=== PATIENT | female | born 1965 | race Caucasian/White ===

== ENCOUNTER → 2017-06-30 14:49 | Outpatient (CLI) | payer OTHER, MEDICAID, SELFPAY ==
[2017-06-30 17:05] LABS: Free T4, Direct Thyroxine 0.97 ng/dL (0.78-2.19)
[2017-06-30 17:19] LABS: Thyroid Stimulating Hormone 5.08 uIU/mL (0.47-4.68)
== END ==
PROVIDERS: Visit Provider Obstetrics & Gynecology
DX: E03.9 Hypothyroidism, unspecified (principal)
CPT/HCPCS: 84439; 84443

== ENCOUNTER → 2017-07-30 17:01 | Outpatient (CLI) | payer OTHER, MEDICAID, SELFPAY ==
[2017-07-30 18:16] LABS: Free T4, Direct Thyroxine 1.52 ng/dL (0.78-2.19)
== END ==
PROVIDERS: Visit Provider Specialist
DX: E03.9 Hypothyroidism, unspecified (principal)
CPT/HCPCS: 36415; 84439; 84443

== ENCOUNTER 2017-09-20 19:48 | Emergency (ER) | payer OTHER, MEDICAID, SELFPAY ==
[2017-09-20 19:56] VITALS: BP 150/80; PULSE 98; RESP 18; TEMP 39.4; O2SAT 94; BMI 49.9
[2017-09-20 20:02] VITALS: TEMP 39.4
[2017-09-20] MEDS: ACETAMINOPHEN 325 MG TABLET 975 MG PO (20:02)
[2017-09-20 23:22] VITALS: BP 106/66; PULSE 75; RESP 18; TEMP 37.2; O2SAT 96
[2017-09-20 23:30] VITALS: TEMP 37.2
--- NOTE | 2017-09-20 23:32 | ED_ITS ---
HPI - Fever General Chief Complaint: Fever Stated Complaint: STATES SHE HAS A FEVER OF 105 Time Seen by Provider: 09/20/17 22:56 Source: patient Mode of arrival: ambulatory Limitations: no limitations History of Present Illness HPI Narrative: Patient is a 52-year-old female who presents with fever which started early this evening. She says that all day she has not been feeling well. She had chills and needed multiple blankets despite the warm weather outside. She has not had for cough abdominal pain nausea vomiting UTI symptoms. She initially had fever when she 1st checked and in the ED however she was treated fever has improved and she is feeling much better, In fact she would like to go home. MD complaint: fever Related Data Home Medications Medication Instructions Recorded Confirmed LEVOTHYROXINE SODIUM (Synthroid) 200 mcg PO DAILY #0 07/12/09 09/20/17 atenolol 50 mg PO Q DAY #0 07/12/09 09/20/17 ibuprofen [Advil Liqui-Gel] 600 mg PO Q6H PRN #0 05/11/17 09/20/17 furosemide 20 mg tablet 40 mg PO DAILY PRN 06/30/17 09/20/17 Allergies Allergy/AdvReac Type Severity Reaction Status Date / Time metoclopramide Allergy Unknown NERVOUS/AG Verified 09/20/17 19:58 ITATION Review of Systems Review of Systems All systems reviewed & are unremarkable except as noted in HPI and below Constitutional Reports as per HPI, Reports body ache(s), Reports chills, Reports daytime sleepiness and Reports fever(s) Eyes Denies change in vision, Denies eye discharge, Denies irritation and Denies loss of vision ENT Ears, Nose, Mouth, and Throat: Denies change in voice, Denies neck pain and Denies sore throat Cardiovascular Denies chest pain, Denies irregular heart rhythm, Denies lightheadedness, Denies palpitations, Denies dyspnea, Denies dyspnea on exertion and Denies orthopnea Respiratory Denies cough, Denies dyspnea, Denies dyspnea on exertion and Denies wheezing Gastrointestinal Gastrointestinal: Denies abdominal pain, Denies change in bowel habits, Denies diarrhea, Denies nausea and Denies vomiting Genitourinary Denies hematuria, Denies flank pain, Denies urinary incontinence and Denies urinary urgency Musculoskeletal Denies neck pain Integumentary/Breasts Denies pruritus, Denies erythema, Denies rash and Denies wounds Neurologic Denies loss of vision Endocrine Denies palpitations Allergic/Immunologic Denies wheezing [facility], [facility] Medical History HTN (hypertension) (Acute) Surgical History History of bilateral salpingo-oophorectomy (BSO) (05/11/17) History of third molar tooth extraction Status post adenoidectomy Status post eye surgery Status post laparoscopic cholecystectomy Status post laparoscopic supracervical hysterectomy (05/11/17) Status post surgery (08/08/13) Social History Smoking Status: Former smoker alcohol intake: current substance use type: does not use Exam Initial Vital Signs Initial Vital Signs: Vital Signs Temperature 103.0 F H 09/20/17 19:56 Pulse Rate 98 H 09/20/17 19:56 Respiratory Rate 18 09/20/17 19:56 Blood Pressure 150/80 H 09/20/17 19:56 Pulse Oximetry 94 09/20/17 19:56 Const General: cooperative and healthy appearing Nutritional Appearance: overweight HENMT Head: normal to inspection and normocephalic Eyes General: appearance normal, both eyes and all related structures Neck Neck: normal visual inspection and full ROM Chest Chest: normal inspection of the chest Resp Effort & Inspection: normal respiratory effort Auscultation: clear to auscultation bilaterally, no rales, no rhonchi and no wheezes Cardio Rate: regular rate Rhythm: regular rhythm Heart Sounds: S1 normal and S2 normal GI Inspection: normal to inspection Palpation: soft, No firm, No guarding and No tender Auscultation: normal bowel sounds General: No CVA tenderness Skin General: no rashes or lesions noted, No jaundice and No petechiae Neuro General: alert, oriented x3, gait normal and no focal motor deficits Speech: speech normal Extrem General: normal to inspection Course Orders Ordered: Discontinued Medications Acetaminophen (Tylenol) 975 mg PO NOW ONE Stop: 09/20/17 20:02 Last Admin: 09/20/17 20:02 Dose: 975 mg Vital Signs - 8 hr 09/20/17 23:22 09/20/17 23:30 Temperature 98.9 F 98.9 F Pulse Rate 75 Respiratory Rate 18 Blood Pressure [Right Arm] 106/66 Pulse Oximetry 96 MDM - Fever Lab Data Attestation: I reviewed the patient's lab results. POC UA- negative MDM Narrative Medical decision making narrative: 11:30 p.m. patient is afebrile she has no symptoms she looks nontoxic she is awake alert sitting up and appears well. We discussed blood work versus conservative method of watching waiting in fever control. At this time fever has been ongoing for only a number of hours, she does not appear septic or toxic. She has no specific complaints I discussed all findings with the patient and daughter. Education has been performed regarding treatment plan, diagnosis, warning signs and symptoms and all concerns have been addressed. Verbally agree with and understood all of the above. Discharge Plan Departure Patient Disposition: Home, Self-Care Clinical Impression: Fever of unknown origin Discharge Date/Time: 09/20/17 23:36 Interventions: ED Discharge Assessment Last Done: 09/20/17 23:36 Instructions: DI for Viral Syndrome, DI for Fever (Symptom) -- Adult Activity Restrictions/Additional Instructions: *You have been diagnosed with Viral syndrome, fever *What to do: at this time no specific signs or symptoms of bacterial infection no antibiotics needed at this time. However more specific symptoms may become present which may require antibiotic - continue fever control with Tylenol and/or ibuprofen as directed *Continue to take medications as directed *Follow up with your primary care provider in 2-3 days *Return to ER if you should have fever persisting for more than 4 days, abdominal pain, headache cough or any new, worsening or concerning symptoms Prescriptions: No Action LEVOTHYROXINE SODIUM (Synthroid) 200 mcg PO DAILY Qty: 0 RF: 0 atenolol 50 MG tablet 50 mg PO Q DAY Qty: 0 RF: 0 ibuprofen [Advil Liqui-Gel] 200 MG capsule 600 mg PO Q6H PRN (Reason: Pain (Scale Score 1-3)) Qty: 0 RF: 0 furosemide [Lasix] 20 mg tablet 40 mg PO DAILY PRN (Reason: swelling) RF: 0 Referrals: Lien Stubbs ARNP [Primary Care Provider] -
== END 2017-09-20 23:36 | disposition home or self-care (01) ==
PROVIDERS: Emergency Provider Emergency Medicine
DX: R50.9 Fever, unspecified (principal)
CPT/HCPCS: 81003; 99282; 99283

== ENCOUNTER → 2017-11-09 09:48 | Outpatient (CLI) | payer OTHER, MEDICAID, SELFPAY ==
[2017-11-09 10:18] LABS: Add Manual Diff / Slide Review NO; Basophils Percent Auto 0.4 % (0-2); Eosinophils Percent Auto 2.4 % (2-4); Hematocrit 40.1 % (36-46); Hemoglobin 13.7 g/dL (12.0-16.0); Lymphocytes Percent Auto 29.9 % (25-40); Mean Corpuscular HGB Conc 34.2 % (30-36); Mean Corpuscular Hemoglobin 29.6 PG (26-34); Mean Corpuscular Volume 86.7 fL (80-100); Monocytes Percent Auto 9.6 % (3-14); Neutrophils Absolute Auto 3100 /uL (3000-5900); Neutrophils Percent Auto 57.7 % (50-75); Platelet Count 201 X10^3/uL (150-400); Red Blood Cell Count 4.63 X10^6/uL (4.0-5.2); Red Cell Distribution Width 14.2 % (11.6-14.8); White Blood Cell Count 5.3 X10^3/uL (4.5-11.0)
[2017-11-09 10:30] LABS: Alanine Aminotransferase 43 IU/L (9-52); Albumin 4.3 g/dL (3.5-5.0); Albumin Globulin Ratio 1.2 (1.0-2.8); Alkaline Phosphatase 90 U/L (38-126); Aspartate Aminotransferase 38 IU/L (14-36); BUN Creatinine Ratio 21.7 (6-22); Bilirubin Total 0.7 mg/dL (0.2-1.3); Blood Urea Nitrogen 13 mg/dL (7-17); Calcium 9.9 mg/dL (8.4-10.2); Carbon Dioxide 31 mmol/L (22-32); Chloride 103 mmol/L (98-107); Cholesterol 252 mg/dL (140-199); Estimated Glomerular Filt Rate > 60.0 mL/min (>60); Globulin 3.7 g/dL (1.7-4.1); Glucose 97 mg/dL (70-100); HDL Cholesterol 51 mg/dL (40-60); HEMOLYSIS < 15 (0-50); LDL Cholesterol Calculated 164 mg/dL (<100); Potassium 4.6 mmol/L (3.4-5.1); Sodium 143 mmol/L (137-145); Triglycerides 186 mg/dL (35-150); Uric Acid 7.3 mg/dL (2.5-6.2)
[2017-11-09 10:37] LABS: HEMOLYSIS < 15 (0-50); Iron 77 ug/dL (37-170)
[2017-11-09 10:47] LABS: Erythrocyte Sedimentation Rate 45 MM/HR (0-20)
[2017-11-09 10:48] LABS: Percent Iron Saturation 22 % (15-50); Total Iron Binding Capacity 343 ug/dL (265-497); Transferrin 296 mg/dL (206-381)
[2017-11-11 18:54] LABS: HLA B27 POSITIVE (Negative)
== END ==
PROVIDERS: PCP Physician Assistant; Visit Provider Physician Assistant
DX: I10 Essential (primary) hypertension (principal); M25.50 Pain in unspecified joint; M45.0 Ankylosing spondylitis of multiple sites in spine; Z86.2 Personal history of diseases of the blood and blood-forming organs and certain disorders involving the immune mechanism; M45.9 Ankylosing spondylitis of unspecified sites in spine
CPT/HCPCS: 36415; 80053; 80061; 83540; 83550; 84550; 85025; 85651; 86812

== ENCOUNTER → 2017-11-18 11:44 | Outpatient (CLI) | payer OTHER, MEDICAID, SELFPAY ==
--- NOTE | 2017-11-18 11:46 | DI.RAD.S_ITS ---
PROCEDURE: XR SACRUM COCCYX MIN 2V INDICATIONS: PAIN, Rheumatology needs updated films TECHNIQUE: 3 views of the sacrum and coccyx acquired. COMPARISON: [facility], CR, XR LUMBAR SPINE 2-3V, 11/18/2017, 11:32. FINDINGS: Bones: No fractures or dislocations. No suspicious bony lesions. Mild degenerative sclerosis can be seen of the sacroiliac joints. Age-appropriate lower lumbar spine degenerative changes are noted. Soft tissues: Visualized bowel gas pattern is normal. No suspicious soft tissue densities. IMPRESSION: Normal-appearing sacrum and coccyx. Dictated by: Demetri Garcia M.D. on 11/18/2017 at 13:11 Approved by: Demetri Garcia M.D. on 11/18/2017 at 13:12
--- NOTE | 2017-11-18 11:46 | DI.RAD.S_ITS ---
PROCEDURE: XR LUMBAR SPINE 2-3V INDICATIONS: Ankylosing spondylitis of unspecified sites in spine TECHNIQUE: 3 views of the lumbar spine were acquired. COMPARISON: [facility], CR, XR SACRUM COCCYX MIN 2V, 11/18/2017, 11:32. None. FINDINGS: Bones: 5 nonrib-bearing, lumbar type vertebral bodies are seen. Mild central compression deformities are seen involving the superior endplates of L1 and L2. No acute features are detected. Mild levoconvex scoliotic curvature is noted. There is minimal anterolisthesis at the L3-L4 level. Moderate disc space narrowing is seen at T12-L1. Mild disc space narrowing is seen at L5-S1 and Versed bridging endplate osteophytes are seen on the left at the L3-L4 level. Lower lumbar spine facet arthropathy is seen. Age-appropriate lower thoracic spine degenerative changes are seen. Soft tissues: Overlying bowel gas pattern is normal. No suspicious soft tissue calcifications. Cholecystectomy clips are seen. IMPRESSION: Levoconvex scoliotic curvature and associated degenerative changes. Superior endplate compression deformities are seen at L1 and L2, without acute features. Dictated by: Demetri Garcia M.D. on 11/18/2017 at 13:09 Approved by: Demetri Garcia M.D. on 11/18/2017 at 13:11
== END ==
PROVIDERS: PCP Physician Assistant; Visit Provider Physician Assistant
DX: M47.816 Spondylosis without myelopathy or radiculopathy, lumbar region (principal); M48.061 Spinal stenosis, lumbar region without neurogenic claudication; M45.9 Ankylosing spondylitis of unspecified sites in spine; M41.9 Scoliosis, unspecified; M48.07 Spinal stenosis, lumbosacral region; Z90.49 Acquired absence of other specified parts of digestive tract
CPT/HCPCS: 72100; 72220

== ENCOUNTER → 2018-03-16 15:38 | Outpatient (CLI) | payer OTHER, MEDICAID, SELFPAY ==
--- NOTE | 2018-03-16 15:41 | DI.RAD.S_ITS ---
PROCEDURE: XR CLAVICLE RT INDICATIONS: Swelling RS Clavicular border; HLA B27 (+) TECHNIQUE: 2 views of the clavicle were acquired. COMPARISON: None. FINDINGS: Bones: No fractures or dislocations. No suspicious bony lesions. Soft tissues: No suspicious soft tissue calcifications. IMPRESSION: No trauma found. Moderate osteoarthritis at the a.c. joint. Dictated by: Yves Alfonso M.D. on 03/16/2018 at 16:31 Approved by: Yves Alfonso M.D. on 03/16/2018 at 16:32
--- NOTE | 2018-03-16 15:41 | DI.RAD.S_ITS ---
PROCEDURE: XR KNEE RT 3V INDICATIONS: Bilateral knee pain;positive HLA B27 TECHNIQUE: 3 views of the knee were acquired. COMPARISON: None. FINDINGS: Bones: No fractures or dislocations but there is severe degenerative osteoarthritis at the lateral facet of the patellofemoral joint where [id number] articulation is present. Moderately severe medial compartment and mild to moderate lateral compartment degenerative osteoarthritis also is present seen on the frontal weight bearing view.. No suspicious bony lesions. Soft tissues: No joint effusion. No suspicious soft tissue calcifications. IMPRESSION: Overall there is moderately severe to severe degenerative knee joint osteoarthritis most pronounced at the lateral facet of the patellofemoral joint. Dictated by: Yves Alfonso M.D. on 03/16/2018 at 16:32 Approved by: Yves Alfonso M.D. on 03/16/2018 at 16:33
--- NOTE | 2018-03-16 15:41 | DI.RAD.S_ITS ---
PROCEDURE: XR KNEE LT 3V INDICATIONS: Bilateral knee pain;positive HLA B27 TECHNIQUE: 3 views of the knee were acquired. COMPARISON: [facility], CR, XR KNEE RT 3V, 03/16/2018, 15:42. FINDINGS: Bones: No fractures or dislocations but there is a moderately severe degree of degenerative knee joint osteoarthritis most pronounced at the lateral facet of the patellofemoral joint also present to a similar degree at the medial compartment on the frontal weight bearing view.. No suspicious bony lesions. Soft tissues: No joint effusion. No suspicious soft tissue calcifications. IMPRESSION: Knee joint osteoarthritis is moderately severe overall but slightly less than on the right from plain film imaging earlier today. Degenerative changes are most pronounced at the lateral facet of the patellofemoral joint, and also at the medial compartment. No effusion or loose body found. Dictated by: Yves Alfonso M.D. on 03/16/2018 at 16:33 Approved by: Yves Alfonso M.D. on 03/16/2018 at 16:34
== END ==
PROVIDERS: PCP Physician Assistant; Visit Provider Physician Assistant
DX: M25.561 Pain in right knee (principal); M25.562 Pain in left knee; M19.011 Primary osteoarthritis, right shoulder; M17.0 Bilateral primary osteoarthritis of knee; M25.411 Effusion, right shoulder; Z15.89 Genetic susceptibility to other disease
CPT/HCPCS: 73000; 73562

== ENCOUNTER → 2018-03-19 11:36 | Outpatient (CLI) | payer OTHER, MEDICAID, SELFPAY ==
--- NOTE | 2018-03-19 11:40 | DI.RAD.S_ITS ---
PROCEDURE: XR CHEST 2V INDICATIONS: Deformity (possible bone) Upper right chest wall lower neck TECHNIQUE: 2 views of the chest were acquired. COMPARISON: None. FINDINGS: Surgical changes and devices: None. Lungs and pleura: No pleural effusions or pneumothorax. Lungs are clear. Mediastinum: Mediastinal contours are normal. Heart size is normal. Bones and chest wall: No suspicious bony abnormalities. Soft tissues appear unremarkable. Multilevel thoracolumbar degenerative changes. IMPRESSION: No acute pulmonary process. No visualized bony abnormality. If concern persists, CT is recommended. Dictated by: Martha Sarah M.D. on 03/19/2018 at 12:04 Approved by: Martha Sarah M.D. on 03/19/2018 at 12:06
== END ==
PROVIDERS: PCP Physician Assistant; Visit Provider Physician Assistant
DX: M95.4 Acquired deformity of chest and rib (principal); M95.3 Acquired deformity of neck
CPT/HCPCS: 71046

== ENCOUNTER → 2018-05-13 11:37 | Outpatient (CLI) | payer OTHER, MEDICAID, SELFPAY ==
--- NOTE | 2018-05-13 | DI.MRI.S_ITS ---
PROCEDURE: MR LUMBAR SPINE WO/W CON INDICATIONS: Arthropathy, unspecified TECHNIQUE: Noncontrast sagittal T1 spin echo and T2 fast spin echo, sagittal STIR, axial T1 and T2 fast spin echo through the lumbar spine. In cases with scoliosis, additional coronal T2 fast spin echo may be performed. After the administration of contrast, sagittal and axial T1 spin echo with fat saturation through the lumbar spine. COMPARISON: None. FINDINGS: Image quality: Excellent. Alignment and curvature: There is mild L3-L4 degenerative anterolisthesis. Bones: Marrow is of normal overall signal. Loss of height noted in the L1 vertebral body compatible with compression fracture.Renal vertebral body is normal indicating depression fracture is chronic. L1 compression fracture results in approximately 20% loss of normal vertebral body height. No kyphosis or retropulsed fragments associated with the L1 compression deformity. No acute vertebral body compression fractures. No suspicious marrow enhancement. Spinal cord: Conus medullaris terminates at the T12-L1 is level. Visualized spinal cord demonstrates normal signal, without suspicious enhancement. Paraspinous soft tissues: No paravertebral masses or abnormal enhancement. L1-L2: Slight loss of the signal. Minimal, diffuse disc bulge. Mild bilateral facet hypertrophy and No central stenosis. No neural foraminal narrowing. No neural impingement. L2-L3: Loss of the signal. Minimal, diffuse disc bulge. Mild bilateral facet hypertrophy. No central stenosis. No neural foraminal narrowing. No neural impingement. L3-L4: Loss of the signal. Minimal, diffuse disc bulge. Moderate to severe bilateral facet hypertrophy. Mild ligamentum flavum hypertrophy. Mild to moderate narrowing of the central canal. Mild to moderate bilateral neural foraminal narrowing. No neural impingement. L4-L5: Loss of disc signal. Minimal, diffuse disc bulge. Mild to moderate bilateral facet hypertrophy. Mild narrowing of the central canal. Mild to moderate bilateral neural foraminal narrowing. No neural impingement. L5-S1: Disc has a normal appearance. [id number] bilateral facet hypertrophy. No central stenosis. Mild left neural foraminal narrowing. No neural impingement. IMPRESSION: 1. Grade I L3-L4 degenerative spondylolisthesis. 2. Multilevel degenerative disease 3. Multilevel facet arthropathy. 4. Mild to moderate L3-L4 central canal narrowing. Mild L4-L5 central canal narrowing. 5. Mild to moderate bilateral L3-L4 and L4-L5 neural foraminal narrowing. Mild left L5-S1 neural foraminal narrowing. 6. No neural impingement. Dictated by: Dania Rico MD, PhD on 05/13/2018 at 16:38 Approved by: Dania Rico MD, PhD on 05/13/2018 at 16:41
== END ==
PROVIDERS: PCP Physician Assistant; Referring Provider Orthopaedic Surgery; Visit Provider Specialist/Technologist Athletic Trainer
DX: M47.816 Spondylosis without myelopathy or radiculopathy, lumbar region (principal); M47.817 Spondylosis without myelopathy or radiculopathy, lumbosacral region; M51.36 Other intervertebral disc degeneration, lumbar region; M48.061 Spinal stenosis, lumbar region without neurogenic claudication; M48.07 Spinal stenosis, lumbosacral region; M43.16 Spondylolisthesis, lumbar region
CPT/HCPCS: 72158; A9579

== ENCOUNTER 2018-06-09 14:19 | Emergency (ER) | payer OTHER, MEDICAID, SELFPAY ==
[2018-06-09] VITALS (8 sets, daily range): BP systolic 111–146; BP diastolic 61–72; PULSE 90–102; RESP 15–19; TEMP 36.7–39.9; O2SAT 94–99; BMI 50.5
[2018-06-09] MEDS: ACETAMINOPHEN 325 MG TABLET 650 MG PO (14:56)
[2018-06-09 15:22] LABS: Influenza A and B by PCR Rapid Negative (Negative)
--- NOTE | 2018-06-09 15:34 | DI.US.S_ITS ---
PROCEDURE: US EXTREMITY NONVASC LOWER RT INDICATIONS: swollen, painful leg TECHNIQUE: Real-time scanning was performed of the right lower extremity veins, with image documentation. COMPARISON: None. FINDINGS: Grayscale and Doppler examination of the right common femoral vein, greater saphenous vein, superficial femoral vein, popliteal vein, posterior tibial vein and peroneal vein shows no intraluminal filling defect. Normal compressibility is noted. Normal respiratory variation and augmentation is also seen. Multiple mildly enlarged lymph nodes are noted in right inguinal region measures up to 3.3 x 1.7 x 2.5 cm in size. IMPRESSION: 1. No evidence of DVT in the visualized right lower extremity veins. 2. Prominent lymph nodes in right inguinal region suggestive of reactive inflammatory lymph nodes. Dictated by: Diaz Burris M.D. on 06/09/2018 at 16:21 Approved by: Diaz Burris M.D. on 06/09/2018 at 16:23
--- NOTE | 2018-06-09 16:13 | ED_ITS ---
HPI - Extremity Problem <MAR Shah - Last Filed: 06/09/18 19:34> General Chief complaint: Extremity Problem,Nontraumatic Stated complaint: lethargic, swelling in right legs, states shingles Time Seen by Provider: 06/09/18 15:12 Source: patient Mode of arrival: ambulatory Limitations: no limitations History of Present Illness HPI Narrative: Patient is a 53-year-old female former smoker with history of shingles who presents with a chief complaint of ?I think I have shingles again. She states that she has fevers aches and pains, which is what happened prior to her last shingles. She is feeling tingling in her leg similar to her last shingles. From the walk-in clinic, was concerned she might have a DVT given swelling and pain in her right lower leg. She has not taken anything at home to feel better. She denies any chest pain or shortness of breath. Denies any nausea vomiting or diarrhea. Denies any rashes. Related Data Home Medications Medication Instructions Recorded Confirmed atenolol 50 mg PO DAILY #0 07/12/09 06/10/18 furosemide 40 mg PO DAILY 06/09/18 06/10/18 levothyroxine 200 mcg PO DAILY 06/09/18 06/10/18 ibuprofen 200 mg tablet 200 mg PO QID PRN 06/10/18 Previous Rx's Medication Instructions Recorded allopurinol 300 mg tablet 300 mg PO DAILY #30 tab 05/17/18 cephalexin 500 mg PO QID #40 cap 06/09/18 doxycycline monohydrate 100 mg 100 mg PO BID #20 tab 06/11/18 tablet Allergies Allergy/AdvReac Type Severity Reaction Status Date / Time metoclopramide AdvReac Severe Verified 06/10/18 15:15 NERVOUS/AGITATION AND SUICIDAL THOUGHTS Review of Systems <MAR Shah - Last Filed: 06/09/18 19:34> Review of Systems GENERAL: Denies chills, fatigue, malaise, fever, sweats. HEENT: Denies sinus pain, ear pain, sore throat, difficulty swallowing, dizziness. RESPIRATORY: Denies dyspnea, cough, wheezing, hemoptysis, sputum. CARDIOVASCULAR: Denies chest pain, palpitations, orthopnea, edema, GASTROINTESTINAL: Denies nausea, vomiting, abdominal pain, diarrhea, constipati on, melena. : Denies dysuria, frequency, incontinence, hematuria, urinary retention. MUSCULOSKELETAL: See HPI SKIN: See HPI NEUROLOGIC: Denies weakness, headache, numbness, change in speech, confusion, seizures, incoordination. PSYCHIATRIC: No concerning psychosocial issues. 12 point review of systems is negative except for those stated above PFSH <EARL Shah - Last Filed: 06/09/18 19:34> Medical History HTN (hypertension) (Chronic) Hypothyroidism (Chronic) Polycystic ovary syndrome (Resolved) Surgical History History of bilateral salpingo-oophorectomy (BSO) (05/11/17) History of third molar tooth extraction Status post adenoidectomy Status post eye surgery Status post laparoscopic cholecystectomy Status post laparoscopic supracervical hysterectomy (05/11/17) Status post surgery (08/08/13) Family History (Updated 10/22/17 @ 11:20 by Patricia Jones LPN) Family/Other Adopted Social History Smoking Status: Former smoker Tobacco: How many years used: 4 second hand exposure: No alcohol intake: current substance use type: does not use Family History (Updated 10/22/17 @ 11:20 by Patricia Jones LPN) Family/Other Adopted Social History Smoking Status: Former smoker Tobacco: How many years used: 4 second hand exposure: No alcohol intake: current substance use type: does not use Exam <EARL Shah - Last Filed: 06/09/18 19:34> Narrative Exam Narrative: GENERAL: This is a obese patient, sleeping but easily arousable HEAD: Atraumatic. Normocephalic. No temporal or scalp tenderness. EYES: Pupils equal round and reactive. Extraocular motions intact. No scleral icterus. No injection or drainage. ENT: Nose without bleeding, purulent drainage or septal hematoma. Throat without erythema, tonsillar hypertrophy or exudate. Uvula midline. Airway patent. NECK: Trachea midline. No JVD or lymphadenopathy. Supple, nontender, no menin geal signs. CARDIOVASCULAR: Regular rate and rhythm without murmurs, gallops, or rubs. RESPIRATORY: Clear to auscultation. Breath sounds equal bilaterally. No wheezes, rales, or rhonchi. No cough. No increased respiratory effort. GASTROINTESTINAL: Abdomen obese, non-tender, nondistended. No hepato- splenomegaly, or palpable masses. No guarding. EXTREMITIES: Positive pedal pulses. 2+ edema bilateral lower extremities. cap refill less than 2 seconds all nails both feet. BACK: Nontender without deformity or crepitance. No flank tenderness. NEURO: AOx3. SKIN: 8 x 6 cm erythema noted right lower leg. Warm to palpation. Initial Vital Signs Initial Vital Signs: Vital Signs Temperature 103.8 F H 06/09/18 14:25 Pulse Rate 102 H 06/09/18 14:25 Respiratory Rate 06/09/18 14:25 Pulse Oximetry 97 06/09/18 14:25 <Jair Arguello DO - Last Filed: 06/12/18 18:27> Initial Vital Signs Initial Vital Signs: Vital Signs Temperature 103.8 F H 06/09/18 14:25 Pulse Rate 102 H 06/09/18 14:25 Respiratory Rate 06/09/18 14:25 Pulse Oximetry 97 06/09/18 14:25 Course <TOMAS Shah-BC - Last Filed: 06/09/18 19:34> Orders Ordered: Discontinued Medications Acetaminophen (Tylenol) 650 mg PO NOW ONE Stop: 06/09/18 14:55 Last Admin: 06/09/18 14:56 Dose: 650 mg Sodium Chloride (Normal Saline 0.9%) 1,000 mls @ 1,000 mls/hr IV BOLUS ONE Stop: 06/09/18 18:10 Last Infusion: 06/09/18 18:41 Dose: 0 mls/hr Admin: 06/09/18 17:19 Dose: 1,000 mls/hr Ceftriaxone Sodium/Dextrose (Rocephin) 2 gm in 50 mls @ 100 mls/hr IV NOW ONE Stop: 06/09/18 17:48 Last Infusion: 06/09/18 18:07 Dose: 0 mls/hr Admin: 06/09/18 17:26 Dose: 100 mls/hr Ibuprofen (Advil) 800 mg PO NOW ONE Stop: 06/09/18 14:55 Last Admin: 06/09/18 16:25 Dose: Not Given Potassium Chloride (Potassium Chloride) 40 meq PO NOW ONE Stop: 06/09/18 17:12 Last Admin: 06/09/18 17:19 Dose: 40 meq Vital Signs - 8 hr 06/09/18 14:25 06/09/18 14:56 06/09/18 15:13 Temperature 103.8 F H 103.8 F H Pulse Rate 102 H Respiratory Rate 19 Blood Pressure Blood Pressure [Right Arm] 146/65 H Pulse Oximetry 97 06/09/18 16:00 06/09/18 16:26 06/09/18 16:27 Temperature 98.1 F 98.1 F Pulse Rate 90 Respiratory Rate 15 Blood Pressure Blood Pressure [Right Arm] 111/71 Pulse Oximetry 94 06/09/18 17:42 06/09/18 18:41 Temperature 98.5 F Pulse Rate 95 H 90 Respiratory Rate 18 17 Blood Pressure 131/72 Blood Pressure [Right Arm] 111/61 Pulse Oximetry 95 99 <Jair Arguello DO - Last Filed: 06/12/18 18:27> Orders Ordered: Discontinued Medications Acetaminophen (Tylenol) 650 mg PO NOW ONE Stop: 06/09/18 14:55 Last Admin: 06/09/18 14:56 Dose: 650 mg Sodium Chloride (Normal Saline 0.9%) 1,000 mls @ 1,000 mls/hr IV BOLUS ONE Stop: 06/09/18 18:10 Last Infusion: 06/09/18 18:41 Dose: 0 mls/hr Admin: 06/09/18 17:19 Dose: 1,000 mls/hr Ceftriaxone Sodium/Dextrose (Rocephin) 2 gm in 50 mls @ 100 mls/hr IV NOW ONE Stop: 06/09/18 17:48 Last Infusion: 06/09/18 18:07 Dose: 0 mls/hr Admin: 06/09/18 17:26 Dose: 100 mls/hr Ibuprofen (Advil) 800 mg PO NOW ONE Stop: 06/09/18 14:55 Last Admin: 06/09/18 16:25 Dose: Not Given Potassium Chloride (Potassium Chloride) 40 meq PO NOW ONE Stop: 06/09/18 17:12 Last Admin: 06/09/18 17:19 Dose: 40 meq Vital Signs - 8 hr 06/09/18 14:25 06/09/18 14:56 06/09/18 15:13 Temperature 103.8 F H 103.8 F H Pulse Rate 102 H Respiratory Rate 19 Blood Pressure Blood Pressure [Right Arm] 146/65 H Pulse Oximetry 97 06/09/18 16:00 06/09/18 16:26 06/09/18 16:27 Temperature 98.1 F 98.1 F Pulse Rate 90 Respiratory Rate 15 Blood Pressure Blood Pressure [Right Arm] 111/71 Pulse Oximetry 94 06/09/18 17:42 06/09/18 18:41 Temperature 98.5 F Pulse Rate 95 H 90 Respiratory Rate 18 17 Blood Pressure 131/72 Blood Pressure [Right Arm] 111/61 Pulse Oximetry 95 99 MDM - Extremity (Nontraumatic) <MARNIE ShahP-BC - Last Filed: 06/09/18 19:34> Lab Data Result diagrams: 06/09/18 16:18 06/09/18 16:18 Lab Results 06/09/18 06/09/18 06/09/18 Range/Units 14:48 16:18 16:18 WBC 16.4 H (4.5-11.0) X10^3/uL RBC 4.62 (4.0-5.2) X10^6/uL Hgb 13.5 (12.0-16.0) g/dL Hct 39.5 (36-46) % MCV 85.6 (80-100) fL MCH 29.2 (26-34) PG MCHC 34.1 (30-36) % RDW 15.1 H (11.6-14.8) % Plt Count 154 (150-400) X10^3/uL Neut % (Auto) 92.0 H (50-75) % Lymph % (Auto) 4.9 L (25-40) % [place] % (Auto) 2.7 L (3-14) % Eos % (Auto) 0.2 L (2-4) % Baso % (Auto) 0.2 (0-2) % Neut # (Auto) 56998 H (7064-4257) /uL Lymph # (Auto) 800 L (2869-1287) /uL [place] # (Auto) 400 (0-900) /uL Eos # (Auto) 0 (0-450) /uL Baso # (Auto) 0 (0-100) /uL Sodium 134 L (137-145) mmol/L Potassium 3.3 L (3.4-5.1) mmol/L Chloride 97 L (98-107) mmol/L Carbon Dioxide 29 (22-32) mmol/L BUN 18 H (7-17) mg/dL Creatinine 0.70 (0.52-1.04) mg/dL Estimated GFR > 60.0 (>60) mL/min BUN/Creatinine Ratio 25.7 H (6-22) Glucose 126 H (70-100) mg/dL Lactate (0.7-2.1) mmol/L Calcium 9.4 (8.4-10.2) mg/dL Total Bilirubin 0.7 (0.2-1.3) mg/dL AST 32 (14-36) IU/L ALT 23 (9-52) IU/L Alkaline Phosphatase 69 (38-126) U/L B-Natriuretic Peptide (<100) Total Protein 7.8 (6.3-8.2) g/dL Albumin 4.0 (3.5-5.0) g/dL Globulin 3.8 (1.7-4.1) g/dL Albumin/Globulin Ratio 1.1 (1.0-2.8) Influenza A & B (PCR) Negative (Negative) 06/09/18 06/09/18 Range/Units 16:18 16:41 WBC (4.5-11.0) X10^3/uL RBC (4.0-5.2) X10^6/uL Hgb (12.0-16.0) g/dL Hct (36-46) % MCV (80-100) fL MCH (26-34) PG MCHC (30-36) % RDW (11.6-14.8) % Plt Count (150-400) X10^3/uL Neut % (Auto) (50-75) % Lymph % (Auto) (25-40) % [place] % (Auto) (3-14) % Eos % (Auto) (2-4) % Baso % (Auto) (0-2) % Neut # (Auto) (1199-8183) /uL Lymph # (Auto) (1916-7757) /uL [place] # (Auto) (0-900) /uL Eos # (Auto) (0-450) /uL Baso # (Auto) (0-100) /uL Sodium (137-145) mmol/L Potassium (3.4-5.1) mmol/L Chloride (98-107) mmol/L Carbon Dioxide (22-32) mmol/L BUN (7-17) mg/dL Creatinine (0.52-1.04) mg/dL Estimated GFR (>60) mL/min BUN/Creatinine Ratio (6-22) Glucose (70-100) mg/dL Lactate 1.3 (0.7-2.1) mmol/L Calcium (8.4-10.2) mg/dL Total Bilirubin (0.2-1.3) mg/dL AST (14-36) IU/L ALT (9-52) IU/L Alkaline Phosphatase (38-126) U/L B-Natriuretic Peptide < 100 (<100) Total Protein (6.3-8.2) g/dL Albumin (3.5-5.0) g/dL Globulin (1.7-4.1) g/dL Albumin/Globulin Ratio (1.0-2.8) Influenza A & B (PCR) (Negative) Imaging Data Venous US: Radiologist's impression: Mirela Alvarez 53 F 1965 [place] [address] Ultrasound Report Signed Patient: Mirela Alvarez [facility]#: [id number] : 1965Acct:[id number] Age/Sex: 53 / FDate of Service: 06/09/18 Loc: ED Accession Number: [id number] Procedure: US extremity nonvasc lower rt Ordering Provider: Racquel Toth- PROCEDURE: US EXTREMITY NONVASC LOWER RT INDICATIONS: swollen, painful leg TECHNIQUE: Real-time scanning was performed of the right lower extremity veins, with image documentation. COMPARISON: None. FINDINGS: Grayscale and Doppler examination of the right common femoral vein, greater saphenous vein, superficial femoral vein, popliteal vein, posterior tibial vein and peroneal vein shows no intraluminal filling defect. Normal compressibility is noted. Normal respiratory variation and augmentation is also seen. Multiple mildly enlarged lymph nodes are noted in right inguinal region measures up to 3.3 x 1.7 x 2.5 cm in size. IMPRESSION: 1. No evidence of DVT in the visualized right lower extremity veins. 2. Prominent lymph nodes in right inguinal region suggestive of reactive inflammatory lymph nodes. Dictated by: Diaz Burris M.D. on 06/09/2018 at 16:21 Approved by: Diaz Burris M.D. on 06/09/2018 at 16:23 [facility] Narrative Medical decision making narrative: The patient is a 53-year-old female who presents with chief complaint of shingles versus DVT from the walk-in clinic. She had a normal ultrasound. She has an elevated white blood cell count. Her exam and workup is more consistent with cellulitis at this point time. She was febrile when she arrived, but dropped her temperature after single dose of Tylenol. Her potassium was slightly low, so she was replaced. She is also given a L of IV fluid. Her BNP was normal. she received 1 dose of IV antibiotics as well as a prescription for Keflex. I discussed following up with primary care provider for re-evaluation in a few days. Discussed return precautions of feeling sicker, spreading redness, as well as vomiting. patient had no questions or concerns upon discharge. <Jair Arguello, DO - Last Filed: 06/12/18 18:27> Lab Data Lab Results 06/09/18 06/09/18 06/09/18 Range/Units 14:48 16:18 16:18 WBC 16.4 H (4.5-11.0) X10^3/uL RBC 4.62 (4.0-5.2) X10^6/uL Hgb 13.5 (12.0-16.0) g/dL Hct 39.5 (36-46) % MCV 85.6 (80-100) fL MCH 29.2 (26-34) PG MCHC 34.1 (30-36) % RDW 15.1 H (11.6-14.8) % Plt Count 154 (150-400) X10^3/uL Neut % (Auto) 92.0 H (50-75) % Lymph % (Auto) 4.9 L (25-40) % [place] % (Auto) 2.7 L (3-14) % Eos % (Auto) 0.2 L (2-4) % Baso % (Auto) 0.2 (0-2) % Neut # (Auto) 84784 H (0975-3422) /uL Lymph # (Auto) 800 L (9086-6409) /uL [place] # (Auto) 400 (0-900) /uL Eos # (Auto) 0 (0-450) /uL Baso # (Auto) 0 (0-100) /uL Sodium 134 L (137-145) mmol/L Potassium 3.3 L (3.4-5.1) mmol/L Chloride 97 L (98-107) mmol/L Carbon Dioxide 29 (22-32) mmol/L BUN 18 H (7-17) mg/dL Creatinine 0.70 (0.52-1.04) mg/dL Estimated GFR > 60.0 (>60) mL/min BUN/Creatinine Ratio 25.7 H (6-22) Glucose 126 H (70-100) mg/dL Lactate (0.7-2.1) mmol/L Calcium 9.4 (8.4-10.2) mg/dL Total Bilirubin 0.7 (0.2-1.3) mg/dL AST 32 (14-36) IU/L ALT 23 (9-52) IU/L Alkaline Phosphatase 69 (38-126) U/L B-Natriuretic Peptide (<100) Total Protein 7.8 (6.3-8.2) g/dL Albumin 4.0 (3.5-5.0) g/dL Globulin 3.8 (1.7-4.1) g/dL Albumin/Globulin Ratio 1.1 (1.0-2.8) Influenza A & B (PCR) Negative (Negative) 06/09/18 06/09/18 Range/Units 16:18 16:41 WBC (4.5-11.0) X10^3/uL RBC (4.0-5.2) X10^6/uL Hgb (12.0-16.0) g/dL Hct (36-46) % MCV (80-100) fL MCH (26-34) PG MCHC (30-36) % RDW (11.6-14.8) % Plt Count (150-400) X10^3/uL Neut % (Auto) (50-75) % Lymph % (Auto) (25-40) % [place] % (Auto) (3-14) % Eos % (Auto) (2-4) % Baso % (Auto) (0-2) % Neut # (Auto) (9999-7734) /uL Lymph # (Auto) (6889-5371) /uL [place] # (Auto) (0-900) /uL Eos # (Auto) (0-450) /uL Baso # (Auto) (0-100) /uL Sodium (137-145) mmol/L Potassium (3.4-5.1) mmol/L Chloride (98-107) mmol/L Carbon Dioxide (22-32) mmol/L BUN (7-17) mg/dL Creatinine (0.52-1.04) mg/dL Estimated GFR (>60) mL/min BUN/Creatinine Ratio (6-22) Glucose (70-100) mg/dL Lactate 1.3 (0.7-2.1) mmol/L Calcium (8.4-10.2) mg/dL Total Bilirubin (0.2-1.3) mg/dL AST (14-36) IU/L ALT (9-52) IU/L Alkaline Phosphatase (38-126) U/L B-Natriuretic Peptide < 100 (<100) Total Protein (6.3-8.2) g/dL Albumin (3.5-5.0) g/dL Globulin (1.7-4.1) g/dL Albumin/Globulin Ratio (1.0-2.8) Influenza A & B (PCR) (Negative) Discharge Plan Departure Patient Disposition: Home Clinical Impression: Cellulitis of leg, right Discharge Date/Time: 06/09/18 18:55 Interventions: ED Discharge Assessment Last Done: 06/09/18 18:41 Instructions: DI for Cellulitis -- Adult Activity Restrictions/Additional Instructions: I am starting antibiotics for the infection in her leg. Please follow up with primary care provider for a re-evaluation in the next few days. Continue take [id number] medications as needed and able. Please rest and elevate your leg. Come back to the emergency department for any acute concerns including shortness of breath, chest pain concern for heart attack or stroke. Please monitor for spreading of the redness despite antibiotics, fever and inability keep down fluids. Prescriptions: New cephalexin 500 mg capsule 500 mg PO QID Qty: 40 RF: 0 No Action ibuprofen [Ibuprofen IB] 200 mg tablet 200 mg PO QID PRNRF: 0 atenolol 50 MG tablet 50 mg PO DAILY Qty: 0 RF: 0 allopurinol 300 mg tablet 300 mg PO DAILY Qty: 30 RF: 0 doxycycline monohydrate 100 mg tablet 100 mg PO BID Qty: 20 RF: 0 furosemide 40 mg tablet 40 mg PO DAILY RF: 0 levothyroxine 200 mcg tablet 200 mcg PO DAILY RF: 0 Referrals: Naz Power PA-C [Primary Care Provider] - <Jair Arguello DO - Last Filed: 06/12/18 18:27> Cosign ED Attending Oscar Attestation: I was available for consultation during this patient's emergency department encounter
[2018-06-09 16:26] LABS: Add Manual Diff / Slide Review NO; Basophils Absolute Auto 0 /uL (0-100); Basophils Percent Auto 0.2 % (0-2); Eosinophils Absolute Auto 0 /uL (0-450); Eosinophils Percent Auto 0.2 % (2-4); Hematocrit 39.5 % (36-46); Hemoglobin 13.5 g/dL (12.0-16.0); Lymphocytes Absolute Auto 800 /uL (1100-4500); Lymphocytes Percent Auto 4.9 % (25-40); Mean Corpuscular HGB Conc 34.1 % (30-36); Mean Corpuscular Hemoglobin 29.2 PG (26-34); Mean Corpuscular Volume 85.6 fL (80-100); Monocytes Absolute Auto 400 /uL (0-900); Monocytes Percent Auto 2.7 % (3-14); Neutrophils Absolute Auto 15100 /uL (1500-7000); Platelet Count 154 X10^3/uL (150-400); Red Blood Cell Count 4.62 X10^6/uL (4.0-5.2); Red Cell Distribution Width 15.1 % (11.6-14.8); White Blood Cell Count 16.4 X10^3/uL (4.5-11.0)
[2018-06-09 16:40] LABS: Alanine Aminotransferase 23 IU/L (9-52); Albumin Globulin Ratio 1.1 (1.0-2.8); Alkaline Phosphatase 69 U/L (38-126); Aspartate Aminotransferase 32 IU/L (14-36); BUN Creatinine Ratio 25.7 (6-22); Bilirubin Total 0.7 mg/dL (0.2-1.3); Blood Urea Nitrogen 18 mg/dL (7-17); Calcium 9.4 mg/dL (8.4-10.2); Carbon Dioxide 29 mmol/L (22-32); Chloride 97 mmol/L (98-107); Estimated Glomerular Filt Rate > 60.0 mL/min (>60); Globulin 3.8 g/dL (1.7-4.1); Glucose 126 mg/dL (70-100); HEMOLYSIS 20 (0-50); Potassium 3.3 mmol/L (3.4-5.1); Sodium 134 mmol/L (137-145); Total Protein 7.8 g/dL (6.3-8.2)
[2018-06-09 16:51] LABS: B Type Natriuretic Peptide < 100 (<100)
[2018-06-09 17:00] LABS: Lactate (Lactic Acid) 1.3 mmol/L (0.7-2.1)
[2018-06-09] MEDS: POTASSIUM CHLORIDE 20 MEQ/15 ML UDC 40 MEQ PO (17:19)
[2018-06-09] MEDS: SODIUM CHLORIDE 0.9% 1,000 ML 1000 ML IV (17:19)
[2018-06-09] MEDS: CEFTRIAXONE 2 GM/50 ML FROZ.PIGGY IV (17:26)
== END 2018-06-09 18:55 | disposition home or self-care (01) ==
PROVIDERS: Emergency Medicine; Emergency Provider Nurse Practitioner Family; PCP Physician Assistant
DX: L03.115 Cellulitis of right lower limb (principal); R53.1 Weakness
CPT/HCPCS: 36415; 36591; 76882; 80053; 83605; 83880; 85025; 87400; 96361; 96365; 99283; 99284; J0696

== ENCOUNTER 2018-06-12 18:17 | Inpatient (IN) | payer OTHER, MEDICAID, SELFPAY ==
[2018-06-12] VITALS (7 sets, daily range): BP systolic 100–141; BP diastolic 49–83; PULSE 51–70; RESP 14–19; TEMP 36.6–37.8; O2SAT 97–100; BMI 50.6
--- NOTE | 2018-06-12 18:31 | ED_ITS ---
HPI - Skin/Abscess/Foreign Bdy General Chief complaint: Skin/Abscess/Foreign Body Stated complaint: cellulitis right leg, getting worse Time Seen by Provider: 06/12/18 18:31 Source: patient Mode of arrival: ambulatory Limitations: no limitations History of Present Illness HPI narrative: 53-year-old nondiabetic female here for evaluation of worsening cellulitis in her right lower extremity. She was seen here in the emergency department several days ago for redness in her right leg. Was started on Keflex. She states that she was switched to doxycycline by her primary doctor within the past 24 hours because her cellulitis was not getting any better. She states that since then symptoms have continued to get worse and she has not felt well. she states she has been taking her antibiotics. No trauma. Related Data Home Medications Medication Instructions Recorded Confirmed atenolol 50 mg PO DAILY #0 07/12/09 06/12/18 furosemide 40 mg PO DAILY PRN 06/09/18 06/12/18 levothyroxine 200 mcg PO DAILY 06/09/18 06/12/18 ibuprofen 200 mg tablet 600 mg PO Q8-10H PRN 06/10/18 06/12/18 Previous Rx's Medication Instructions Recorded allopurinol 300 mg tablet 300 mg PO DAILY #30 tab 05/17/18 doxycycline monohydrate 100 mg 100 mg PO BID #20 tab 06/11/18 tablet Allergies Allergy/AdvReac Type Severity Reaction Status Date / Time metoclopramide AdvReac Severe Verified 06/12/18 18:29 NERVOUS/AGITATION AND SUICIDAL THOUGHTS Review of Systems Constitutional Reports fatigue, Reports fever(s), Reports malaise and Denies weakness ENT Ears, Nose, Mouth, and Throat: Denies disequilibrium Cardiovascular Denies chest pain and Denies dyspnea Respiratory Denies dyspnea Gastrointestinal Gastrointestinal: Denies abdominal pain Musculoskeletal Denies myalgias, Denies arthralgias and Denies tingling Integumentary/Breasts Reports erythema and Reports rash Neurologic Denies tingling, Denies paresthesias, Denies disequilibrium and Denies weakness Endocrine Reports fatigue Hematologic/Lymphatic Denies easy bleeding and Denies easy bruising Allergic/Immunologic Denies urticaria PFSH Medical History HTN (hypertension) (Chronic) Hypothyroidism (Chronic) Polycystic ovary syndrome (Resolved) Surgical History History of bilateral salpingo-oophorectomy (BSO) (05/11/17) History of third molar tooth extraction Status post adenoidectomy Status post eye surgery Status post laparoscopic cholecystectomy Status post laparoscopic supracervical hysterectomy (05/11/17) Status post surgery (08/08/13) Family History (Updated 10/22/17 @ 11:20 by Patricia Jones LPN) Family/Other Adopted Social History household members: none Smoking Status: Former smoker Tobacco: How many years used: 4 second hand exposure: No alcohol intake: current substance use type: does not use Family History Family/Other Adopted Social History household members: none Smoking Status: Former smoker Tobacco: How many years used: 4 second hand exposure: No alcohol intake: current substance use type: does not use Exam Initial Vital Signs Initial Vital Signs: Vital Signs Temperature 97.9 F 06/12/18 18:20 Pulse Rate 66 06/12/18 18:20 Respiratory Rate 14 06/12/18 18:20 Blood Pressure 136/79 06/12/18 18:20 Pulse Oximetry 98 06/12/18 18:20 Const General: cooperative, comfortable, well developed, well groomed and No acute distress Nutritional Appearance: obese Orientation: alert, awake and oriented x3 HENMT Head: normal to inspection and normocephalic Resp Effort & Inspection: normal respiratory effort Cardio Rate: regular rate Skin Rashes: rashes noted swelling right distal lower leg size (Circumferential from distal to the knee to her foot.), color beefy and red, surface warm and waxy; without crusting and tender; fluctuant not assessed Neuro General: alert, awake and oriented x3 Motor: muscle tone normal throughout Sensory Exam: no sensory deficits noted Extrem General: normal to inspection and capillary refill normal Right lower extremity: edema Psych Appearance: grossly normal and well kempt Scores GCS [place] coma scale eye opening: Spontaneous Roni coma scale verbal response: Orientated [place] coma scale motor response: Obey commands Roni coma scale total score: 15 Course Orders Ordered: ED Orders 06/12/18 19:24 Consult to PICC Line RN Stat 06/12/18 20:00 Complete Blood Count AUTO DIFF Stat Comprehensive Metabolic Panel Stat Lipase Stat Procalcitonin Stat 06/12/18 22:39 Blood Culture Stat Lactate (Lactic Acid) Stat Heparin Sodium (Porcine) (Heparin) 5,000 unit SUBCUT BID HERMANN Discontinued Medications Acetaminophen (Tylenol) 650 mg PO NOW ONE Stop: 06/12/18 21:48 Last Admin: 06/12/18 21:50 Dose: 650 mg Sodium Chloride (Normal Saline 0.9%) 1,000 mls @ 1,000 mls/hr IV BOLUS ONE Stop: 06/12/18 19:34 Last Infusion: 06/12/18 21:14 Dose: 0 mls/hr Admin: 06/12/18 19:01 Dose: 1,000 mls/hr Vancomycin HCl 2,000 mg/ (Sodium Chloride) 500 mls @ 250 mls/hr IV NOW ONE Stop: 06/12/18 18:46 Last Admin: 06/12/18 22:55 Dose: 250 mls/hr Sodium Chloride (Normal Saline 0.9%) 4,131 mls @ 1,377 mls/hr 30 ml/kg infuse over 3 hr (4131 ml) IV NOW ONE Stop: 06/13/18 00:46 Last Admin: 06/12/18 21:50 Dose: 1,377 mls/hr Ibuprofen (Advil) 800 mg PO NOW ONE Stop: 06/12/18 20:07 Last Admin: 06/12/18 20:20 Dose: 800 mg Vital Signs - 8 hr 06/12/18 18:20 06/12/18 20:04 06/12/18 21:45 Temperature 97.9 F 100.1 F H Pulse Rate 66 70 61 Respiratory Rate 14 16 16 Blood Pressure 136/79 Blood Pressure [Right Wrist] 141/83 H 109/51 L Pulse Oximetry 98 100 98 06/12/18 21:50 06/12/18 23:00 06/12/18 23:02 Temperature 100.1 F H 98.3 F 98.1 F Pulse Rate 51 L 59 L Respiratory Rate 19 16 Blood Pressure 100/67 105/49 L Blood Pressure [Right Wrist] Pulse Oximetry 97 98 06/12/18 23:45 Temperature Pulse Rate Respiratory Rate Blood Pressure Blood Pressure [Right Wrist] Pulse Oximetry 98 MDM - Skin/Abscess/Foreign Bdy Lab Data Attestation: I reviewed the patient's lab results. Result diagrams: 06/12/18 20:00 06/12/18 20:00 Lab Results 06/12/18 06/12/18 06/12/18 Range/Units 20:00 20:00 20:00 WBC 16.1 H (4.5-11.0) X10^3/uL RBC 4.40 (4.0-5.2) X10^6/uL Hgb 12.7 (12.0-16.0) g/dL Hct 37.9 (36-46) % MCV 86.1 (80-100) fL MCH 28.7 (26-34) PG MCHC 33.4 (30-36) % RDW 15.8 H (11.6-14.8) % Plt Count 149 L (150-400) X10^3/uL Neut % (Auto) Not Reportable Lymph % (Auto) Not Reportable [place] % (Auto) Not Reportable Eos % (Auto) Not Reportable Baso % (Auto) Not Reportable Lymph # (Auto) Not Reportable [place] # (Auto) Not Reportable Baso # (Auto) Not Reportable Total Counted 100 Seg Neutrophils % 69.0 (38-70) % Band Neutrophils % 13.0 H (3-7) % Lymphocytes % (Manual) 13.0 L (25-45) % Monocytes % (Manual) 4.0 (2-11) % Eosinophils % (Manual) 1.0 L (2-4) % Neutrophils # (Manual) 55920 H (1658-9447) /uL Toxic Granulation Present H Platelet Estimate Adequate on smear RBC Morphology Not Reportable Anisocytosis 1+ H Sodium 135 L (137-145) mmol/L Potassium 4.7 D (3.4-5.1) mmol/L Chloride 101 (98-107) mmol/L Carbon Dioxide 21 L (22-32) mmol/L BUN 16 (7-17) mg/dL Creatinine 0.70 (0.52-1.04) mg/dL Estimated GFR > 60.0 (>60) mL/min BUN/Creatinine Ratio 22.9 H (6-22) Glucose 116 H (70-100) mg/dL Lactate (0.7-2.1) mmol/L Calcium 9.2 (8.4-10.2) mg/dL Total Bilirubin 0.8 (0.2-1.3) mg/dL AST 96 H (14-36) IU/L ALT 69 H (9-52) IU/L Alkaline Phosphatase 101 (38-126) U/L Total Protein 7.6 (6.3-8.2) g/dL Albumin 3.6 (3.5-5.0) g/dL Globulin 4.0 (1.7-4.1) g/dL Albumin/Globulin Ratio 0.9 L (1.0-2.8) Lipase 254 (23-300) U/L Procalcitonin 0.91 H (<0.5) ng/mL 06/12/18 Range/Units 22:39 WBC (4.5-11.0) X10^3/uL RBC (4.0-5.2) X10^6/uL Hgb (12.0-16.0) g/dL Hct (36-46) % MCV (80-100) fL MCH (26-34) PG MCHC (30-36) % RDW (11.6-14.8) % Plt Count (150-400) X10^3/uL Neut % (Auto) Lymph % (Auto) Grant % (Auto) Eos % (Auto) Baso % (Auto) Lymph # (Auto) Grant # (Auto) Baso # (Auto) Total Counted Seg Neutrophils % (38-70) % Band Neutrophils % (3-7) % Lymphocytes % (Manual) (25-45) % Monocytes % (Manual) (2-11) % Eosinophils % (Manual) (2-4) % Neutrophils # (Manual) ([id number]) /uL Toxic Granulation Platelet Estimate RBC Morphology Anisocytosis Sodium (137-145) mmol/L Potassium (3.4-5.1) mmol/L Chloride (98-107) mmol/L Carbon Dioxide (22-32) mmol/L BUN (7-17) mg/dL Creatinine (0.52-1.04) mg/dL Estimated GFR (>60) mL/min BUN/Creatinine Ratio (6-22) Glucose (70-100) mg/dL Lactate 0.7 (0.7-2.1) mmol/L Calcium (8.4-10.2) mg/dL Total Bilirubin (0.2-1.3) mg/dL AST (14-36) IU/L ALT (9-52) IU/L Alkaline Phosphatase (38-126) U/L Total Protein (6.3-8.2) g/dL Albumin (3.5-5.0) g/dL Globulin (1.7-4.1) g/dL Albumin/Globulin Ratio (1.0-2.8) Lipase (23-300) U/L Procalcitonin (<0.5) ng/mL MDM Narrative Medical decision making narrative: Patient does have a leukocytosis and elevated procalcitonin. Lactate unremarkable. Does have redness and swelling to the right lower extremity predominantly from the knee to the foot however does have a small area on the inner thigh. No vesicles. She has had shingles in the past and she states this does not feel like shingles. She is failed out treatment of Keflex. Has been on doxycycline for approximately 24 hours and his symptoms have been worsening. She did develop a fever while being here in the ER. Was started on vancomycin. Was also started on fluids. Discussed the case with night hospitalist to admit for IV antibiotics. Discussed the admission with the patient who expressed understanding and agreement with plan. Discharge Plan Departure Patient Disposition: Admitted As Inpatient Clinical Impression: Cellulitis of leg, right Discharge Date/Time: 06/12/18 23:05 Interventions: ED Discharge Assessment Last Done: 06/12/18 23:02 Admit Date/Time: 06/12/18 21:44 Admit Provider: Jatin Nguyen
[2018-06-12] MEDS: SODIUM CHLORIDE 0.9% 1,000 ML 1000 ML IV (19:01)
--- NOTE | 2018-06-12 19:33 | PC.NURSE ---
Message left with answering service for PICC line placement with [facility]. Awaiting call back from PICC nurse.
[2018-06-12] MEDS: IBUPROFEN 400 MG TABLET 800 MG PO (20:20)
--- NOTE | 2018-06-12 20:34 | PC.NURSE ---
No call back received yet from [facility] PICC nurse. Second message left with answering service.
--- NOTE | 2018-06-12 20:37 | PC.NURSE ---
Call received from PICC RN, she is en route from [facility], ETA [id number].
[2018-06-12 20:47] LABS: Alanine Aminotransferase 69 IU/L (9-52); Albumin 3.6 g/dL (3.5-5.0); Albumin Globulin Ratio 0.9 (1.0-2.8); Alkaline Phosphatase 101 U/L (38-126); Aspartate Aminotransferase 96 IU/L (14-36); BUN Creatinine Ratio 22.9 (6-22); Bilirubin Total 0.8 mg/dL (0.2-1.3); Blood Urea Nitrogen 16 mg/dL (7-17); Calcium 9.2 mg/dL (8.4-10.2); Carbon Dioxide 21 mmol/L (22-32); Chloride 101 mmol/L (98-107); Estimated Glomerular Filt Rate > 60.0 mL/min (>60); Glucose 116 mg/dL (70-100); Lipase 254 U/L (23-300); Potassium 4.7 mmol/L (3.4-5.1); Sodium 135 mmol/L (137-145); Total Protein 7.6 g/dL (6.3-8.2)
[2018-06-12 20:49] LABS: HEMOLYSIS 78 (0-50)
[2018-06-12 21:04] LABS: Hematocrit 37.9 % (36-46); Hemoglobin 12.7 g/dL (12.0-16.0); White Blood Cell Count 16.1 X10^3/uL (4.5-11.0)
[2018-06-12 21:05] LABS: Mean Corpuscular HGB Conc 33.4 % (30-36); Mean Corpuscular Hemoglobin 28.7 PG (26-34); Mean Corpuscular Volume 86.1 fL (80-100); Platelet Count 149 X10^3/uL (150-400); Red Cell Distribution Width 15.8 % (11.6-14.8)
[2018-06-12 21:06] LABS: Add Manual Diff / Slide Review YES
[2018-06-12 21:07] LABS: Total Cells Counted 100
[2018-06-12 21:11] LABS: Neutrophils Absolute Manual 13202 /uL (3000-5900)
[2018-06-12 21:12] LABS: Anisocytosis 1+; Platelet Estimate Adequate on smear; Toxic Granulation Present
[2018-06-12 21:19] LABS: Procalcitonin 0.91 ng/mL (<0.5)
[2018-06-12] MEDS: ACETAMINOPHEN 325 MG TABLET 650 MG PO (21:50)
[2018-06-12] MEDS: SODIUM CHLORIDE 0.9% 1377 ML IV (21:50)
[2018-06-12] MEDS: VANCOMYCIN 2,000 MG in SODIUM CHLORIDE 0.9% 500 ML 250 ML IV (22:55)
[2018-06-12 23:00] LABS: Lactate (Lactic Acid) 0.7 mmol/L (0.7-2.1)
--- NOTE | 2018-06-12 23:50 | P.HP_ITS ---
History of Present Illness Date Patient Seen: 06/12/18 Time Patient Seen: 23:50 Chief complaint: cellulitis right leg, getting worse Narrative: Patient is a difficult historian. The patient is a 53-year-old female with PMHx of HTN, osteoarthritis, hypothyroidism, hyperuricemia, PCOS and morbid obesity. She does not have a history of diabetes or peripheral vascular disease. she has prior history of tobacco dependence (noted as socially), however elusive and her disclosure of current or intermittent tobacco use. Patient was encouraged to seek emergent evaluation due to worsening cellulitis, refractory to outpatient therapy. While outpatient patient was treated with Keflex and doxycycline. Patient reports developing sudden onset of rigors on 06/07/2018. In the 48 hour s to follow patient reports feeling extremely weak and lethargic. Patient has not taken any OTC medications for supportive care. On Thursday06/09/2017 patient noted right lower extremity edema and an 8x6 cm erythema - per ED documentation. She sought evaluation in the ED on 06/09 and was diagnosed with RLE cellulitis, given 2 gm of IV Rocephin and discharged home on a 10 day course of cephalexin (500 mg QID). RLE U/S ruled out a DVT during that visit. Overnight patient noted worsening degree of edema and erythema. That day, 06/11, she was seen by her PCP for follow-up of RLE cellulitis and diarrhea. Assessment of RLE by PCP as follows right lower extremity-swollen, somewhat dusky red in color, involving calf (not completely circumferential) and smaller area medial upper thigh. Patient was advised to continue with cephalexin for the next 2-3 days and if there was no improvement then consider switching to doxycycline. In the next 2 days patient has not seen any worsening, but also no improvement/resolution. She contacted her PCP again on 06/12 and was prescribed doxycycline of which she has only taken 1 dose. Later in the day continued to be concerned, patient expressed that she did not think the cellulitis was being treated sufficiently. Consequently, she was told to seek a ED evaluation by the on-call provider. Patient has taken cephalexin 500 m of 4 doses - 06/10, 4 of 4 doses - 06/11, and 2 of 4 doses - 06/12 (cephalexin was discontinued / replaced with doxyc ycline). Patient has not experienced recent illness or trauma to lower extremities. Denies prior history of cellulitis. Recently returned from [place], 1-2 days prior to onset of initial symptoms. While in [place] she reports having a sea salt scrub treatment at a spa, prior to the event notes to have shaving her legs. Denies prior history of diabetes or peripheral vascular disease. she is known to have ongoing fungus of her toenails. Reports cracked feet on occasion. Not aware of having any lacerations (noted to have laceration on the plantar aspect of the rigth foot, between 1st and 2nd toe). Admits to walking barefoot. Patient has a dog that lives inside of the house (reported to be UTD on immunizations). Denies recent strep infection, however does note a history of recurrent strep throat in childhood. Denies exposure to wooded areas or yard work. Does not endorse any specific insects such as spiders in the home Patient History Medical History HTN (hypertension) (Chronic) Hypothyroidism (Chronic) Polycystic ovary syndrome (Resolved) Surgical History History of bilateral salpingo-oophorectomy (BSO) (05/11/17) History of third molar tooth extraction Status post adenoidectomy Status post eye surgery Status post laparoscopic cholecystectomy Status post laparoscopic supracervical hysterectomy (05/11/17) Status post surgery (08/08/13) Family History Family/Other Adopted Social History household members: none Smoking Status: Former smoker Tobacco: How many years used: 4 second hand exposure: No alcohol intake: current substance use type: does not use Family & Social History Family History Family/Other Adopted Safety & Behavioral: Feels Safe in Current Yes Environment Been Physically Hurt or No Threatened By a Person Tobacco & Substance use: Smoking Status Former smoker alcohol intake current alcohol intake frequency a few times a week Substance Use Type does not use Meds Home Medications Medication Instructions Recorded Confirmed Type atenolol 50 mg PO DAILY #0 07/12/09 06/12/18 History allopurinol 300 mg tablet 300 mg PO DAILY #30 tab 05/17/18 06/12/18 Rx furosemide 40 mg PO DAILY PRN 06/09/18 06/12/18 History levothyroxine 200 mcg PO DAILY 06/09/18 06/12/18 History ibuprofen 200 mg tablet 600 mg PO Q8-10H PRN 06/10/18 06/12/18 History doxycycline monohydrate 100 mg 100 mg PO BID #20 tab 06/11/18 06/12/18 Rx tablet Allergies Allergy/AdvReac Type Severity Reaction Status Date / Time metoclopramide AdvReac Severe Verified 06/12/18 18:29 NERVOUS/AGITATION AND SUICIDAL THOUGHTS Review of Systems Review of Systems All systems reviewed & are unremarkable except as noted in HPI and below Exam Vital Signs (past 8 hours): - 06/12/18 18:20 06/12/18 20:04 06/12/18 21:45 Temperature 97.9 F 100.1 F H Pulse Rate 66 70 61 Respiratory Rate 14 16 16 Blood Pressure 136/79 Blood Pressure [Right Wrist] 141/83 H 109/51 L Pulse Oximetry 98 100 98 06/12/18 21:50 06/12/18 23:02 Temperature 100.1 F H 98.1 F Pulse Rate 59 L Respiratory Rate 16 Blood Pressure 105/49 L Blood Pressure [Right Wrist] Pulse Oximetry 98 Oxygen Delivery Method Room Air Narrative Exam Narrative: Constitutional: NAD, morbidly obese habitus (BMI 50.6) Neurologic: AOx3, no focal neurological deficits Head: NC, AT Face: Cheeks with degree of flushing on appearance Eyes: PERRL, EOMI Ears: external ears normal, no otorrhea Nose: external nose normal, no rhinorrhea or epistaxis Throat: MMM, oropharynx w/o exudate Neck: no masses, lymphadenopathy, or JVD Chest / Respiratory: equal chest rise, unlabored respiratory effort, no tachypnea, CTA with exception of bilateral bases (diminished) Heart / CV: S1S2, occasional ectopic beats, no murmur Abdomen / GI: Round, soft, marked central obesity,, NT, ND, + BS, no overt o rganomegaly : no suprapubic tenderness, no CVA Peripheral / Vascular: LLE with 1 to 2+ generalized edema, warm to touch, nontender, DP and PT pulses 1+ RLE w/ marked erysipela, ie a well demarcated raised area noted with superficial layer of edema, erythema, redness, and heat There is patchy involvement in the area of right medial thigh, there is small degree of drainage, also there is also small lesion or laceration (perhaps an insect bite) at mid-right calf fingal toe nails bilat and tenia pedis noted Musc: full ROM of upper and lower extremities, adequate muscle tone and bulk Skin: no ecchymosis or suspicious lesions / ulcers Objective Labs Result Diagrams: 06/13/18 05:00 06/13/18 05:00 Labs: Laboratory Results - last 24 hr 06/12/18 06/12/18 06/12/18 20:00 20:00 20:00 WBC 16.1 H RBC 4.40 Hgb 12.7 Hct 37.9 MCV 86.1 MCH 28.7 MCHC 33.4 RDW 15.8 H Plt Count 149 L Neut % (Auto) Not Reportable Lymph % (Auto) Not Reportable [place] % (Auto) Not Reportable Eos % (Auto) Not Reportable Baso % (Auto) Not Reportable Lymph # (Auto) Not Reportable [place] # (Auto) Not Reportable Baso # (Auto) Not Reportable Total Counted 100 Seg Neutrophils % 69.0 Band Neutrophils % 13.0 H Lymphocytes % (Manual) 13.0 L Monocytes % (Manual) 4.0 Eosinophils % (Manual) 1.0 L Neutrophils # (Manual) 45517 H Toxic Granulation Present H Platelet Estimate Adequate on smear RBC Morphology Not Reportable Anisocytosis 1+ H Sodium 135 L Potassium 4.7 D Chloride 101 Carbon Dioxide 21 L BUN 16 Creatinine 0.70 Estimated GFR > 60.0 BUN/Creatinine Ratio 22.9 H Glucose 116 H Lactate Calcium 9.2 Total Bilirubin 0.8 AST 96 H ALT 69 H Alkaline Phosphatase 101 Total Protein 7.6 Albumin 3.6 Globulin 4.0 Albumin/Globulin Ratio 0.9 L Lipase 254 Procalcitonin 0.91 H 06/12/18 22:39 WBC RBC Hgb Hct MCV MCH MCHC RDW Plt Count Neut % (Auto) Lymph % (Auto) [place] % (Auto) Eos % (Auto) Baso % (Auto) Lymph # (Auto) [place] # (Auto) Baso # (Auto) Total Counted Seg Neutrophils % Band Neutrophils % Lymphocytes % (Manual) Monocytes % (Manual) Eosinophils % (Manual) Neutrophils # (Manual) Toxic Granulation Platelet Estimate RBC Morphology Anisocytosis Sodium Potassium Chloride Carbon Dioxide BUN Creatinine Estimated GFR BUN/Creatinine Ratio Glucose Lactate 0.7 Calcium Total Bilirubin AST ALT Alkaline Phosphatase Total Protein Albumin Globulin Albumin/Globulin Ratio Lipase Procalcitonin Assessment & Plan Assessment & Plan narrative: Erysipela, acute, present on admission, active Pattern of infection and spread resembles more erysipela vs cellulitis Multiple potential sources, however likely due to tenia pedis with a fairly significant laceration in the plantar aspect between 1st and 2nd toe WBC 16.1 procalcitonin 0.91. qSOFA score of 0. Does not exhibit hemodynamically instability or acute organ failure. No sign of sepsis. - wound culture - blood cultures collected in ED, pending - continue with vancomycin as she needs coverage for staph and strep infections, pharmacy to dose - supportive care - finish IVF bolus from ED, hold further hydration, will re-evaluate further need in am - CBC, CMP in am Transaminitis, acute, present on admission AST 96 and ALT 69, in the setting of acute infection - monitor liver function at this time with routine lab Essential hypertension, chronic condition, present on admission, stable - resume PROJECT MANAGEMENT ANALYST regimen of atenolol, hold Lasix at this time Hypothyroidism, chronic condition, present on admission, stable - resume PROJECT MANAGEMENT ANALYST regimen of levothyroxine; continue with routine outpatient follow- up Osteoarthritis, chronic condition, present on admission, stable Uses ibuprofen 600-800 mg 2 to 3 times a week fairly routinely. Recently changed to Aleve. Discouraged overuse of NSAIDs. - naproxen 500 mg b.i.d. as needed (alternate w/ tylenol) - Tylenol 650 mg q.6 hours as needed Hyperuricemia, chronic condition, present on admission, stable - resume PROJECT MANAGEMENT ANALYST regimen of allopurinol; continue with routine outpatient follow-up
[2018-06-13] VITALS (10 sets, daily range): BP systolic 112–148; BP diastolic 64–95; PULSE 64–72; RESP 16–20; TEMP 36.8–37.2; O2SAT 94–100
[2018-06-13 05:19] LABS: Add Manual Diff / Slide Review NO; Basophils Absolute Auto 0 /uL (0-100); Basophils Percent Auto 0.3 % (0-2); Eosinophils Absolute Auto 0 /uL (0-450); Eosinophils Percent Auto 0.4 % (2-4); Hematocrit 31.8 % (36-46); Hemoglobin 10.7 g/dL (12.0-16.0); Lymphocytes Absolute Auto 1100 /uL (1100-4500); Lymphocytes Percent Auto 10.5 % (25-40); Mean Corpuscular HGB Conc 33.7 % (30-36); Mean Corpuscular Hemoglobin 28.9 PG (26-34); Mean Corpuscular Volume 85.6 fL (80-100); Monocytes Absolute Auto 800 /uL (0-900); Monocytes Percent Auto 7.8 % (3-14); Neutrophils Absolute Auto 8800 /uL (1500-7000); Platelet Count 153 X10^3/uL (150-400); Red Blood Cell Count 3.71 X10^6/uL (4.0-5.2); Red Cell Distribution Width 15.6 % (11.6-14.8); White Blood Cell Count 10.8 X10^3/uL (4.5-11.0)
[2018-06-13 05:28] LABS: Alanine Aminotransferase 73 IU/L (9-52); Albumin 3.2 g/dL (3.5-5.0); Albumin Globulin Ratio 0.9 (1.0-2.8); Alkaline Phosphatase 80 U/L (38-126); Aspartate Aminotransferase 64 IU/L (14-36); BUN Creatinine Ratio 16.3 (6-22); Bilirubin Total 0.6 mg/dL (0.2-1.3); Blood Urea Nitrogen 13 mg/dL (7-17); Calcium 8.6 mg/dL (8.4-10.2); Carbon Dioxide 25 mmol/L (22-32); Chloride 103 mmol/L (98-107); Estimated Glomerular Filt Rate > 60.0 mL/min (>60); Globulin 3.5 g/dL (1.7-4.1); Glucose 101 mg/dL (70-100); HEMOLYSIS < 15 (0-50); Potassium 3.3 mmol/L (3.4-5.1); Sodium 136 mmol/L (137-145); Total Protein 6.7 g/dL (6.3-8.2)
[2018-06-13] MEDS: VANCOMYCIN 1,000 MG/200 ML FROZ.PIGGY 200 MG IV ×2 (08:09→15:59)
[2018-06-13] MEDS: ALLOPURINOL 300 MG TABLET PO (08:09)
[2018-06-13] MEDS: LEVOTHYROXINE 100 MCG TABLET 200 MCG PO (08:09)
[2018-06-13] MEDS: ATENOLOL 50 MG TABLET PO (08:10)
[2018-06-13] MEDS: POTASSIUM CHLORIDE 20 MEQ TAB 40 MEQ PO (08:10)
[2018-06-13] MEDS: HEPARIN 5,000 UNIT/ML VIAL 5000 UNIT SUBCUT ×2 (08:11→20:18)
--- NOTE | 2018-06-13 10:03 | P.PN_ITS ---
Subjective Date Patient Seen: 06/13/18 Time Patient Seen: 10:02 Interval history: She is seen today to follow up the right leg cellulitis, elevated liver enzymes and hypertension. I am concerned that the vancomycin might not be sufficient to cover strep organisms and so will be adding ceft riaxone. The clinical impression of erysipelas would suggest that vancomycin should be sufficient. Her liver enzymes continue to be moderately elevated with the ALT rising from 69 up to 73 and AST dropping from 96 down to 64. She has no known liver disease prior to this hospitalization. Her potassium was also low at 3.3, down from 4.7. Her hemoglobin has dropped from 12.7-10.7 and the white count has dropped from 16.1 down to 10.8. Exam Vital Signs (past 8 hours): - 06/13/18 03:45 06/13/18 03:46 06/13/18 08:05 Temperature 98.9 F 98.4 F Pulse Rate 64 72 Respiratory Rate 19 16 Blood Pressure 119/70 148/95 H Pulse Oximetry 96 98 100 Oxygen Delivery Method Room Air Oxygen Flow Rate 0 Narrative Exam Narrative: She is alert and oriented x3. She has no pain complaints. Heart is regular rate and rhythm without murmur. Lungs are clear to auscultation bilaterally. extremities have no ankle edema on the left. On the right the entire baker and calf is red but the discoloration has receded quite a bit from the marked areas on the right upper thigh. This area is now warm and also beginning to show wrinkling from the decreasing edema. Objective Labs Result Diagrams: 06/13/18 05:00 06/13/18 05:00 Labs: Laboratory Results - last 24 hr 06/12/18 06/12/18 06/12/18 20:00 20:00 20:00 WBC 16.1 H RBC 4.40 Hgb 12.7 Hct 37.9 MCV 86.1 MCH 28.7 MCHC 33.4 RDW 15.8 H Plt Count 149 L Neut % (Auto) Not Reportable Lymph % (Auto) Not Reportable [place]alier % (Auto) Not Reportable Eos % (Auto) Not Reportable Baso % (Auto) Not Reportable Neut # (Auto) Lymph # (Auto) Not Reportable [place] # (Auto) Not Reportable Eos # (Auto) Baso # (Auto) Not Reportable Total Counted 100 Seg Neutrophils % 69.0 Band Neutrophils % 13.0 H Lymphocytes % (Manual) 13.0 L Monocytes % (Manual) 4.0 Eosinophils % (Manual) 1.0 L Neutrophils # (Manual) 40164 H Toxic Granulation Present H Platelet Estimate Adequate on smear RBC Morphology Not Reportable Anisocytosis 1+ H Sodium 135 L Potassium 4.7 D Chloride 101 Carbon Dioxide 21 L BUN 16 Creatinine 0.70 Estimated GFR > 60.0 BUN/Creatinine Ratio 22.9 H Glucose 116 H Lactate Calcium 9.2 Total Bilirubin 0.8 AST 96 H ALT 69 H Alkaline Phosphatase 101 Total Protein 7.6 Albumin 3.6 Globulin 4.0 Albumin/Globulin Ratio 0.9 L Lipase 254 Procalcitonin 0.91 H 06/12/18 06/13/18 06/13/18 22:39 05:00 05:00 WBC 10.8 RBC 3.71 L Hgb 10.7 L Hct 31.8 L MCV 85.6 MCH 28.9 MCHC 33.7 RDW 15.6 H Plt Count 153 Neut % (Auto) 81.0 H Lymph % (Auto) 10.5 L [place] % (Auto) 7.8 Eos % (Auto) 0.4 L Baso % (Auto) 0.3 Neut # (Auto) 8800 H Lymph # (Auto) 1100 [place]ier # (Auto) 800 Eos # (Auto) 0 Baso # (Auto) 0 Total Counted Seg Neutrophils % Band Neutrophils % Lymphocytes % (Manual) Monocytes % (Manual) Eosinophils % (Manual) Neutrophils # (Manual) Toxic Granulation Platelet Estimate RBC Morphology Anisocytosis Sodium 136 L Potassium 3.3 L D Chloride 103 Carbon Dioxide 25 BUN 13 Creatinine 0.80 Estimated GFR > 60.0 BUN/Creatinine Ratio 16.3 Glucose 101 H Lactate 0.7 Calcium 8.6 Total Bilirubin 0.6 AST 64 H ALT 73 H Alkaline Phosphatase 80 Total Protein 6.7 Albumin 3.2 L Globulin 3.5 Albumin/Globulin Ratio 0.9 L Lipase Procalcitonin Assessment & Plan Assessment & Plan narrative: Erysipelas, acute, present on admission, active Pattern of infection and spread resembles more erysipela vs cellulitis Multiple potential sources, however likely due to tenia pedis with a fairly significant laceration/opening in the plantar aspect between 1st and 2nd toe on that side WBC 16.1 procalcitonin 0.91. qSOFA score of 0. Does not exhibit hemodynamically instability or acute organ failure. No sign of sepsis. - wound culture - blood cultures collected in ED, pending - continue with vancomycin as she needs coverage for staph and strep infections, pharmacy to dose. Add Ceftriaxone. 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 Recently changed to Aleve. Discouraged overuse of NSAIDs. - naproxen 500 mg b.i.d. as needed (alternate w/ tylenol) - Tylenol 650 mg q.6 hours as needed Hyperuricemia, chronic condition, present on admission, stable - continue DENTAL HYGIENIST MOBILE COORDINATOR regimen of allopurinol; continue with routine outpatient follow- up Hypokalemia - give additional Kcl PO today and repeat tomorrow.
[2018-06-13] MEDS: NAPROXEN 250 MG TABLET 500 MG PO ×2 (10:47→19:41)
[2018-06-13] MEDS: CEFTRIAXONE 1 GM/50 ML FROZ.PIGGY IV (11:20)
--- NOTE | 2018-06-13 11:50 | CM.DANOTE ---
DCP/Assessment: Reviewed chart. Patient is a 53yr old female admitted to [facility] for right leg cellulites. Primary payor is 1)PW 2)Medicaid. PCP listed is [facility]. Met with patient explained CM/SW role. Patient alert and oriented at time of visit. Patient reports that she resides alone in [place]. 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 Patient plans to d/c home when medically stable. Patient was told by MD that it would be a few days because of patient's failed attempt with po abx as outpatient. Notified patient that CM team would continue to follow for d/c planning needs. P: Home when stable. MEME Grey Discharge Planning/Care Management Advanced directive, confirm from FAMILY Start: 06/13/18 00:17 Freq: Q24H Status: Active Protocol: Document 06/13/18 08:00 IVAN (Rec: 06/13/18 10:58 IVAN [id number]) Advance Directive, confirm on record Time 10:00 Person contacted Pt Copy received No CM Discharge Assessment Start: 06/13/18 11:43 Freq: Status: Active Protocol: Document 06/13/18 11:44 KJS (Rec: 06/13/18 11:50 KJS [id number]) Discharge Planning Assessment Assigned Interior Design Consultant MEME Grey Advance Directives? Yes History Provided By Patient Prior Living Arrangements Apartment/Condo Household Members none Type of transporation used prior to Drives own vehicle admit Independent with ADL's Yes Is patient alert and oriented? Yes Caregiver for Another No Barriers to Discharge No Discharge Plan Home Transportation Arrangement Family to provide transport. Additional Comment Medical needs for home unclear at this time. Whiteboard Updated in Patient Room with Yes name and ext. # of Interior Design Consultant Review Status In Process Please Provide Date Initial DC 06/13/18 Assessment Was Performed Next Review Type Continued Stay Review
[2018-06-13 12:03] LABS: Hepatitis B Surface Antigen NEGATIVE s/c (NEGATIVE)
[2018-06-13 12:14] LABS: Hep C Virus Ab w/Reflex Quant NEGATIVE s/c (NEGATIVE)
--- NOTE | 2018-06-13 13:49 | PC.NURSE ---
MACHINE BUILDER NOTE: CALLED [facility] REGARDING ORDERING OF PRESSURE REDUCTION MATTRESS, PER MD ORDER. THEY DO NOT CURRENTLY HAVE ONE AVAIL. NITHIN FROM [facility] WILL CALL WITH UPDATE TOMORROW MORNING AT 0800. NOTE LEFT AT MAIN NURSES STATION FOR DAY TITLE CURATOR TOMORROW.
--- NOTE | 2018-06-13 16:57 | PC.NURSE ---
Addendum entered by Ave Perez R.N. 06/13/18 22:57: Scant amount serous drainage continues RLE. Pt reports has tingling sensation to RLE. Erythema with edema RLE unchanged since beginning of shift. Anticipate vanco trough @ 2330 and pt was informed this will be drawn from midline LUE. Original Note: Pt sitting upright in bed. Discussed with pt lying torso more supine to allow for elevation RLE. Pt expresses several reasons why is unable to do this, but does eventually lie torso flat. RLE elevated on pillow x 2 and also informed pt can utilize more pillows for elevation as well as raise feet of bed to elevated position. Lesions to RLE weeping serous fluid and pad changed under extremity. Pt states pain /10. 3-4+ pitting edema RLE with erythema. Pedal pulse present with doppler right foot. Vanco infusing via dual lumen picc line LUE without difficulty.
[2018-06-13] MEDS: SODIUM CHLORIDE 0.9% FLUSH 10 ML IV ×2 (20:18→23:59)
[2018-06-13] MEDS: VANCOMYCIN TROUGH 1 REQUEST MISC (23:50)
[2018-06-14] VITALS (11 sets, daily range): BP systolic 112–150; BP diastolic 64–76; PULSE 65–74; RESP 18; TEMP 36.8–37.5; O2SAT 94–98
--- NOTE | 2018-06-14 | DI.US.S_ITS ---
PROCEDURE: US ABDOMEN COMPLETE INDICATIONS: ELEVATED LFT TECHNIQUE: Real-time scanning was performed of the abdominal and retroperitoneal organs, with image documentation. COMPARISON: None. FINDINGS: Liver: Liver is mildly enlarged measuring 18.9 cm in length and demonstrates mild to moderately hyperechoic parenchymal echotexture. No focal mass.. Gallbladder: Gallbladder is surgically absent. Biliary ducts: Intrahepatic bile ducts are non-dilated. Extrahepatic bile duct caliber measures 5 mm. Normal is 6-7 mm or less in diameter, or 10 mm or less post-cholecystectomy. Pancreas: Visualized portions of the pancreas are sonographically normal. Spleen: Spleen is slightly large measuring 13.6 cm in length and has a normal parenchymal echotexture. Kidneys: Kidneys are normal in size and echotexture. Right kidney measures 13.8 cm long; left kidney measures 12.4 cm long. No hydronephrosis or nephrolithiasis. No solid masses. Aorta: Visualized aorta is normal in caliber at less than 3 cm. Iliacs: Not seen secondary to body habitus and lack of acoustic window. IVC: Intrahepatic inferior vena cava is patent. Miscellaneous: No free abdominal fluid. IMPRESSION: 1. Mild hepatosplenomegaly. Correlate with body habitus as this may be physiologic given only mildly increased sizes. 2. Mild hepatic steatosis or other intrinsic liver disease. 3. Cholecystectomy. Dictated by: Opal Buchanan M.D. on 06/14/2018 at 9:49 Approved by: Opal Buchanan M.D. on 06/14/2018 at 9:52
[2018-06-14 00:29] LABS: Vancomycin Trough 11.5 ug/mL (10-20)
[2018-06-14] MEDS: VANCOMYCIN 1,000 MG/200 ML FROZ.PIGGY 200 MG IV ×3 (00:57→16:04)
[2018-06-14] MEDS: SODIUM CHLORIDE 0.9% FLUSH 10 ML IV ×4 (05:33→18:58)
[2018-06-14 05:53] LABS: Alanine Aminotransferase 67 IU/L (9-52); Albumin 3.2 g/dL (3.5-5.0); Albumin Globulin Ratio 0.9 (1.0-2.8); Alkaline Phosphatase 87 U/L (38-126); Aspartate Aminotransferase 61 IU/L (14-36); BUN Creatinine Ratio 12.5 (6-22); Bilirubin Total 0.5 mg/dL (0.2-1.3); Blood Urea Nitrogen 10 mg/dL (7-17); Calcium 9.1 mg/dL (8.4-10.2); Carbon Dioxide 28 mmol/L (22-32); Chloride 103 mmol/L (98-107); Estimated Glomerular Filt Rate > 60.0 mL/min (>60); Globulin 3.7 g/dL (1.7-4.1); Glucose 100 mg/dL (70-100); HEMOLYSIS < 15 (0-50); Potassium 3.6 mmol/L (3.4-5.1); Sodium 137 mmol/L (137-145); Total Protein 6.9 g/dL (6.3-8.2)
[2018-06-14 06:00] LABS: Add Manual Diff / Slide Review NO; Basophils Absolute Auto 100 /uL (0-100); Basophils Percent Auto 0.5 % (0-2); Eosinophils Absolute Auto 100 /uL (0-450); Eosinophils Percent Auto 0.8 % (2-4); Hematocrit 32.4 % (36-46); Hemoglobin 10.6 g/dL (12.0-16.0); Lymphocytes Absolute Auto 1200 /uL (1100-4500); Lymphocytes Percent Auto 11.1 % (25-40); Mean Corpuscular HGB Conc 32.8 % (30-36); Mean Corpuscular Hemoglobin 28.2 PG (26-34); Mean Corpuscular Volume 86.1 fL (80-100); Monocytes Absolute Auto 1000 /uL (0-900); Monocytes Percent Auto 8.9 % (3-14); Neutrophils Absolute Auto 8800 /uL (1500-7000); Neutrophils Percent Auto 78.7 % (50-75); Platelet Count 198 X10^3/uL (150-400); Red Blood Cell Count 3.76 X10^6/uL (4.0-5.2); Red Cell Distribution Width 15.8 % (11.6-14.8); White Blood Cell Count 11.2 X10^3/uL (4.5-11.0)
[2018-06-14 06:04] LABS: Magnesium 2.3 mg/dL (1.6-2.3)
[2018-06-14] MEDS: LEVOTHYROXINE 100 MCG TABLET 200 MCG PO (06:44)
[2018-06-14 06:45] LABS: Thyroid Stimulating Hormone 2.76 uIU/mL (0.47-4.68)
[2018-06-14 06:56] LABS: Procalcitonin 0.39 ng/mL (<0.5)
--- NOTE | 2018-06-14 07:33 | P.PN_ITS ---
Subjective Date Patient Seen: 06/14/18 Interval history: Mirela Trinh is a 53-year-old female a past medical history significant for hypertension, osteoarthritis, hypothyroidism, hyperuricemia, PCOS and morbid obesity who presented with worsening right leg cellulitis refractory to outpatient antibiotic therapy. The patient is resting in bed comfortably. She endorses constipation for which a bowel regimen has been implemented. She also endorses intermittent tingling and slight pruritus at the base of her right lower extremity. She denies headache, shortness of breath, chest pain, abdominal pain, nausea, vomiting, fever, chills, dysuria, or diarrhea. She is voiding without difficulty. She is up ambulating minimally with assistance. Exam Vital Signs (past 8 hours): - 06/13/18 23:45 06/14/18 02:52 06/14/18 05:35 Temperature 98.8 F 98.3 F Pulse Rate 64 65 Respiratory Rate 18 18 Blood Pressure 112/64 117/64 Pulse Oximetry 94 97 96 06/14/18 06:00 Temperature Pulse Rate Respiratory Rate Blood Pressure Pulse Oximetry 97 Oxygen Delivery Method Room Air Oxygen Flow Rate 0 Narrative Exam Narrative: General: Middle-aged morbidly obese female sitting in bed and in no acute distress, well-developed, well-nourished, appropriately interactive. HEENT: Normocephalic, atraumatic. External ears without defect. Pupils equal, round, and reactive to light. Anicteric sclerae, moist conjunctivae, and no lid lag. Oropharynx free of erythema and cobble stoning with moist mucosa. Neck: Supple with full range of motion. No lymphadenopathy or thyromegaly. Cardiovascular: Regular rate and rhythm without murmurs, rubs, or gallops appreciated Pulmonary: Clear to auscultation bilaterally without crackles, wheezes, or rhonchi. Normal respiratory effort with no use of accessory muscles. Abdomen: Soft, obese, bowel sounds present, nontender, nondistended. No hepato splenomegaly or masses appreciated. Extremities: No clubbing or cyanosis. Circumferential erythema and edema of right lower extremity with scattered bullae. Left lower extremity without cellulitic changes. Dry skin on bilateral lower extremities with several cracks especially on plantar aspect of right foot in between 1st and 2nd toes. Several small circular healing abrasions on right medial thigh. Skin: Normal temperature, turgor, and texture; no ulcers, or subcutaneous nodules appreciated. Neurological: Cranial nerves grossly intact. Normal muscle strength, tone, and bulk. Reflexes, coordination, and sensory function within normal limits. No known gait impairment. Psychiatric: Slightly anxious mood and normal affect. Alert and oriented to person, place, and time. Objective Labs Result Diagrams: 06/14/18 05:30 06/14/18 05:30 Labs: Laboratory Results - last 24 hr 06/13/18 06/13/18 06/14/18 05:00 23:50 05:30 WBC RBC Hgb Hct MCV MCH MCHC RDW Plt Count Neut % (Auto) Lymph % (Auto) [place] % (Auto) Eos % (Auto) Baso % (Auto) Neut # (Auto) Lymph # (Auto) [place] # (Auto) Eos # (Auto) Baso # (Auto) Sodium Potassium Chloride Carbon Dioxide BUN Creatinine Estimated GFR BUN/Creatinine Ratio Glucose Calcium Magnesium Total Bilirubin AST ALT Alkaline Phosphatase Total Protein Albumin Globulin Albumin/Globulin Ratio Procalcitonin 0.39 TSH Vancomycin Trough 11.5 Hep Bs Antigen Negative Hepatitis C Antibody Negative 06/14/18 06/14/18 06/14/18 05:30 05:30 05:30 WBC 11.2 H RBC 3.76 L Hgb 10.6 L Hct 32.4 L MCV 86.1 MCH 28.2 MCHC 32.8 RDW 15.8 H Plt Count 198 Neut % (Auto) 78.7 H Lymph % (Auto) 11.1 L [place] % (Auto) 8.9 Eos % (Auto) 0.8 L Baso % (Auto) 0.5 Neut # (Auto) 8800 H Lymph # (Auto) 1200 [place] # (Auto) 1000 H Eos # (Auto) 100 Baso # (Auto) 100 Sodium 137 Potassium 3.6 Chloride 103 Carbon Dioxide 28 BUN 10 Creatinine 0.80 Estimated GFR > 60.0 BUN/Creatinine Ratio 12.5 Glucose 100 Calcium 9.1 Magnesium 2.3 Total Bilirubin 0.5 AST 61 H ALT 67 H Alkaline Phosphatase 87 Total Protein 6.9 Albumin 3.2 L Globulin 3.7 Albumin/Globulin Ratio 0.9 L Procalcitonin TSH Vancomycin Trough Hep Bs Antigen Hepatitis C Antibody 06/14/18 05:30 WBC RBC Hgb Hct MCV MCH MCHC RDW Plt Count Neut % (Auto) Lymph % (Auto) [place] % (Auto) Eos % (Auto) Baso % (Auto) Neut # (Auto) Lymph # (Auto) [place] # (Auto) Eos # (Auto) Baso # (Auto) Sodium Potassium Chloride Carbon Dioxide BUN Creatinine Estimated GFR BUN/Creatinine Ratio Glucose Calcium Magnesium Total Bilirubin AST ALT Alkaline Phosphatase Total Protein Albumin Globulin Albumin/Globulin Ratio Procalcitonin TSH 2.76 Vancomycin Trough Hep Bs Antigen Hepatitis C Antibody Assessment & Plan Assessment & Plan narrative: Mirela Trinh is a 53-year-old female a past medical history significant for hypertension, osteoarthritis, hypothyroidism, hyperuricemia, PCOS and morbid obesity who presented with worsening right leg cellulitis refractory to outpatient antibiotic therapy. 1. Acute right leg cellulitis/erysipelas, present on admission. Active. -Pattern of infection and spread resembles more erysipelas vs cellulitis. Multiple potential sources, however likely due to tenia pedis with a fairly significant laceration/opening in the plantar aspect between 1st and 2nd toe. Refractory to outpatient treatment with cephalexin and doxycycline. -Initial WBC 16.1 and procalcitonin 0.91. Trending down. qSOFA score of 0. Does not exhibit hemodynamically instability or acute organ failure. No sign of sepsis. -Wound culture and blood cultures collected in ED, pending. -Continue vancomycin with dosing per pharmacist and ceftriaxone 2 g daily to cover additional gram negative bacteria. MRSA screen pending and if negative will stop vancomycin. -Continue supportive care with rest, antipyretics (Tylenol and ice) and elevation. -Wound care consult ordered and pending. 2. Transaminitis, likely secondary to hepatosteatosis, unclear acuity but likely chronic, present on admission. Active. -Initial AST 96 and ALT 69, in the setting of acute infection. Trending down. Continue to monitor liver function daily. Previously mildly elevated in 2018,, therefore likely chronic. -Avoid liver toxic agents. -Viral hepatitis testing negative for hep BsAg and Hep C Ab. -Abdominal US demonstrated hepatic steatosis. 3. Acute hypokalemia, not present on admission. Resolved. -Initial potassium was 4.7 on admission but 3.3 two days prior to admission in ED which was repleted. After IV fluid hydration potassium has trended down to 3.3. Received potassium chloride 40 mEq PO x1. Continue to monitor and replete as needed. 4. Hypertension, chronic, present on admission. Stable. -Continue home atenolol 50 mg daily. Held Lasix 40 mg daily. 5. Hypothyroidism, chronic, present on admission. Stable. -TSH normal at 2.76. -Continue levothyroxine 200 mcg daily; continue with routine outpatient follow- up. 6. Osteoarthritis, chronic, present on admission. Stable. -Patient uses ibuprofen 600-800 mg 2 to 3 times a week fairly routinely which was recently changed to Aleve. Highly discouraged overuse of NSAIDs. -Continue naproxen 500 mg twice a day as needed and alternate with Tylenol 650 mg every 6 hr as needed. 7. Hyperuricemia, chronic, present on admission. Stable. -Continue allopurinol 300 mg daily; continue with routine outpatient follow-up. Disposition: Likely to discharge home with home health in several days depending on improvement in cellulitis.
--- NOTE | 2018-06-14 08:13 | PC.NURSE ---
charge nurse- recieved call from Zan from [facility] and an air mattress will be arriving this afternoon.
[2018-06-14] MEDS: HEPARIN 5,000 UNIT/ML VIAL 5000 UNIT SUBCUT ×2 (09:09→21:46)
[2018-06-14] MEDS: ALLOPURINOL 300 MG TABLET PO (09:09)
[2018-06-14] MEDS: ATENOLOL 50 MG TABLET PO (09:09)
--- NOTE | 2018-06-14 10:33 | PC.NURSE ---
Addendum entered by Nina Martinez R.N. 06/14/18 14:12: pt took a shower, changed gowns, and changed bed to an air bed. Dr. Liao's stated that if nares are negative for MRSA, pt can start ambulating in hallways. Dr. Liao would like pt to increase activity and ambulation as well as keep RLE elevated above heart. Patient states that she has conflicting thoughts on that order. pt believes elevating her leg that high will cut off her circulation instead of assisting and decreasing the swelling. Awaiting Nares swabs from lab. Original Note: AM Shift pt AO and receptive to care. Up 1PA to BR. Reports feeling constipated and has only passed 1 XS hard BM's yesterday (06/13); I will get with provider to work on a bowel care plan. Intermittent ABX infusing to Midline and tolerating well; flushing with NS (21ml post ABX and 50U heparin flush). In shower currently with assistance from MEAT DRESSER. Changed chucks pad this AM due to moderate drainage from RLE. Redness is outlined in marker and appears to be decreasing. pt states that she feels the best I have felt since being here. Would like to ambulating the hallways (I will ask provider as well). In good spirits.
[2018-06-14] MEDS: CEFTRIAXONE 2 GM/50 ML FROZ.PIGGY IV (11:24)
[2018-06-14] MEDS: POLYETHYLENE GLYCOL 3350 17 GM POWD.PACK PO (11:40)
[2018-06-14] MEDS: DOCUSATE 100 MG CAPSULE PO (11:40)
[2018-06-14 14:48] LABS: Hemoglobin A1C% w Est Avg Glu 5.6 % (4.0-6.0)
--- NOTE | 2018-06-14 16:38 | PC.NURSE ---
Addendum entered by Oksana Nunez R.N. 06/14/18 19:21: Nasal swab negative. IV Vanco complete. Midline drsg changed per protocol. Original Note: Evening note: Mirela is Ox3, VS stable. Afebrile. 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 Nasal swab collected per order by . IV Vanco infusing to [facility] PICC with no difficulty. Remains on contact isolation, awaiting final wound culture. Pt expressing self, denies needs or concerns at this time.
[2018-06-14] MEDS: ACETAMINOPHEN 325 MG TABLET 650 MG PO (21:54)
[2018-06-15] VITALS (7 sets, daily range): BP systolic 110–138; BP diastolic 62–80; PULSE 62–75; RESP 16–18; TEMP 36.7–37.2; O2SAT 94–97
[2018-06-15] MEDS: VANCOMYCIN 1,000 MG/200 ML FROZ.PIGGY 200 MG IV ×2 (00:42→08:13)
[2018-06-15] MEDS: LEVOTHYROXINE 100 MCG TABLET 200 MCG PO (06:00)
[2018-06-15 06:01] LABS: Add Manual Diff / Slide Review NO; Basophils Absolute Auto 0 /uL (0-100); Basophils Percent Auto 0.4 % (0-2); Eosinophils Absolute Auto 100 /uL (0-450); Hematocrit 32.1 % (36-46); Hemoglobin 10.4 g/dL (12.0-16.0); Lymphocytes Absolute Auto 1400 /uL (1100-4500); Lymphocytes Percent Auto 11.8 % (25-40); Mean Corpuscular HGB Conc 32.4 % (30-36); Mean Corpuscular Hemoglobin 28.1 PG (26-34); Mean Corpuscular Volume 86.6 fL (80-100); Monocytes Absolute Auto 1100 /uL (0-900); Neutrophils Absolute Auto 9300 /uL (1500-7000); Neutrophils Percent Auto 77.8 % (50-75); Platelet Count 260 X10^3/uL (150-400); Red Cell Distribution Width 16.3 % (11.6-14.8)
[2018-06-15] MEDS: NAPROXEN 250 MG TABLET 500 MG PO (06:10)
[2018-06-15 06:25] LABS: Alanine Aminotransferase 77 IU/L (9-52); Albumin 3.1 g/dL (3.5-5.0); Albumin Globulin Ratio 0.9 (1.0-2.8); Alkaline Phosphatase 94 U/L (38-126); Aspartate Aminotransferase 58 IU/L (14-36); BUN Creatinine Ratio 14.3 (6-22); Bilirubin Total 0.6 mg/dL (0.2-1.3); Blood Urea Nitrogen 10 mg/dL (7-17); Carbon Dioxide 29 mmol/L (22-32); Chloride 102 mmol/L (98-107); Estimated Glomerular Filt Rate > 60.0 mL/min (>60); Globulin 3.6 g/dL (1.7-4.1); Glucose 98 mg/dL (70-100); HEMOLYSIS < 15 (0-50); Magnesium 2.3 mg/dL (1.6-2.3); Potassium 3.6 mmol/L (3.4-5.1); Sodium 137 mmol/L (137-145); Total Protein 6.7 g/dL (6.3-8.2)
[2018-06-15 06:51] LABS: Procalcitonin 0.25 ng/mL (<0.5)
[2018-06-15] MEDS: HEPARIN 5,000 UNIT/ML VIAL 5000 UNIT SUBCUT ×2 (08:16→21:46)
[2018-06-15] MEDS: ATENOLOL 50 MG TABLET PO (08:16)
[2018-06-15] MEDS: DOCUSATE 100 MG CAPSULE PO (08:16)
[2018-06-15] MEDS: ALLOPURINOL 300 MG TABLET PO (08:16)
--- NOTE | 2018-06-15 10:13 | P.PN_ITS ---
Subjective Date Patient Seen: 06/15/18 Interval history: Mirela Alvarez is a 53-year-old female a past medical history significant for hypertension, osteoarthritis, hypothyroidism, hyperuricemia, PCOS and morbid obesity who presented with worsening right leg cellulitis refractory to outpatient antibiotic therapy. The patient is resting in bed comfortably. She endorses pain today in her right leg related to her cellulitis she rates a +5/10. She is somewhat reluctant to elevating her leg as she feels as though it will cut off her circulation, however, reiterated importance of elevation in regard to alleviating swelling and inflammation. She continues a bowel regimen for subjective constipation although she has had 2 BM's since admission. She denies headache, shortness of breath, chest pain, abdominal pain, nausea, vomiting, fever, chills, dysuria, or diarrhea. She is voiding and eliminated without difficulty. She is up ambulating minimally with assistance. Exam Vital Signs (past 8 hours): - 06/15/18 06:15 06/15/18 08:12 Temperature 98.1 F 98.0 F Pulse Rate 75 69 Respiratory Rate 16 18 Blood Pressure 138/62 133/77 Pulse Oximetry 97 95 Oxygen Delivery Method Room Air Oxygen Flow Rate 0 Narrative Exam Narrative: General: Middle-aged morbidly obese female sitting in bed and in no acute distr ess, well-developed, well-nourished, appropriately interactive. HEENT: Normocephalic, atraumatic. External ears without defect. Pupils equal, round, and reactive to light. Anicteric sclerae, moist conjunctivae, and no lid lag. Neck: Supple with full range of motion. No lymphadenopathy or thyromegaly. Cardiovascular: Regular rate and rhythm without murmurs, rubs, or gallops appreciated. Pulmonary: Clear to auscultation bilaterally without crackles, wheezes, or rhonchi. Normal respiratory effort with no use of accessory muscles. Abdomen: Soft, obese, bowel sounds present, nontender, nondistended. No hepatosplenomegaly or masses appreciated. Extremities: No clubbing or cyanosis. Circumferential erythema and edema of right lower extremity with scattered bullae mostly medially and significantly improved with elevation. Left lower extremity without cellulitic changes. Dry skin on bilateral lower extremities with several cracks, especially on plantar aspect of right foot in between 1st and 2nd toes. Several small circular healing abrasions on right medial thigh. Skin: Normal temperature, turgor, and texture; no ulcers, or subcutaneous nodules appreciated. Neurological: Cranial nerves grossly intact. Psychiatric: Slightly anxious mood and normal affect. Alert and oriented to person, place, and time. Objective Labs Result Diagrams: 06/15/18 05:45 06/15/18 05:45 Labs: Laboratory Results - last 24 hr 06/14/18 06/14/18 06/15/18 05:30 16:15 05:45 WBC 12.0 H RBC 3.70 L Hgb 10.4 L Hct 32.1 L MCV 86.6 MCH 28.1 MCHC 32.4 RDW 16.3 H Plt Count 260 Neut % (Auto) 77.8 H Lymph % (Auto) 11.8 L [place] % (Auto) 9.0 Eos % (Auto) 1.0 L Baso % (Auto) 0.4 Neut # (Auto) 9300 H Lymph # (Auto) 1400 [place] # (Auto) 1100 H Eos # (Auto) 100 Baso # (Auto) 0 Sodium Potassium Chloride Carbon Dioxide BUN Creatinine Estimated GFR BUN/Creatinine Ratio Glucose Hemoglobin A1c 5.6 Calcium Magnesium Total Bilirubin AST ALT Alkaline Phosphatase Total Protein Albumin Globulin Albumin/Globulin Ratio Procalcitonin Nasal Screen MRSA (PCR) Negative for mrsa 06/15/18 06/15/18 05:45 05:45 WBC RBC Hgb Hct MCV MCH MCHC RDW Plt Count Neut % (Auto) Lymph % (Auto) [place] % (Auto) Eos % (Auto) Baso % (Auto) Neut # (Auto) Lymph # (Auto) [place] # (Auto) Eos # (Auto) Baso # (Auto) Sodium 137 Potassium 3.6 Chloride 102 Carbon Dioxide 29 BUN 10 Creatinine 0.70 Estimated GFR > 60.0 BUN/Creatinine Ratio 14.3 Glucose 98 Hemoglobin A1c Calcium 9.0 Magnesium 2.3 Total Bilirubin 0.6 AST 58 H ALT 77 H Alkaline Phosphatase 94 Total Protein 6.7 Albumin 3.1 L Globulin 3.6 Albumin/Globulin Ratio 0.9 L Procalcitonin 0.25 Nasal Screen MRSA (PCR) Assessment & Plan Assessment & Plan narrative: Mirela Alvarez is a 53-year-old female a past medical history significant for hypertension, osteoarthritis, hypothyroidism, hyperuricemia, PCOS and morbid obesity who presented with worsening right leg cellulitis refractory to outpatient antibiotic therapy. 1. Acute non-purulent right leg cellulitis, present on admission. Active. -Multiple potential sources, however likely due to tenia pedis with a fairly significant laceration/opening in the plantar aspect between 1st and 2nd toe. Refractory to outpatient treatment with cephalexin and doxycycline. -Initial WBC 16.1 and procalcitonin 0.91. Trending down. qSOFA score of 0. Does not exhibit hemodynamically instability or acute organ failure. No sign of sepsis. -Wound culture and blood cultures collected in ED, pending. -MRSA screen negative. Discontinued vancomycin and ceftriaxone. Switched patient to Bactrim DS twice daily for total of 10 days to stop 06/22. -Continue supportive care with rest, antipyretics (Tylenol and ice) and ENCOURAGE elevation. -Consulted wound care for evaluation treatment. We appreciate their time and care of the patient. 2. Transaminitis, likely secondary to hepatosteatosis, unclear acuity but likely chronic, present on admission. Active. -Initial AST 96 and ALT 69, in the setting of acute infection. Trending down. Continue to monitor liver function daily. Previously mildly elevated in 2018,, therefore likely chronic. -Avoid liver toxic agents. -Viral hepatitis testing negative for hep BsAg and Hep C Ab. -Abdominal US demonstrated hepatic steatosis. 3. Acute possibly on chronic hypokalemia, not present on admission. Resolved. -Initial potassium was 4.7 on admission but 3.3 two days prior to admission in ED which was repleted. After IV fluid hydration potassium has trended down to 3.3. Received potassium chloride 40 mEq PO x1. Continue to monitor and replete as needed. 4. Hypertension, chronic, present on admission. Stable. -Continue home atenolol 50 mg daily. Held Lasix 40 mg daily. 5. Hypothyroidism, chronic, present on admission. Stable. -TSH normal at 2.76. -Continue levothyroxine 200 mcg daily; continue with routine outpatient follow- up. 6. Osteoarthritis, chronic, present on admission. Stable. -Patient uses ibuprofen 600-800 mg 2 to 3 times a week fairly routinely which was recently changed to Aleve. Highly discouraged overuse of NSAIDs. -Continue naproxen 500 mg twice a day as needed and alternate with Tylenol 650 mg every 6 hr as needed. 7. Hyperuricemia, chronic, present on admission. Stable. -Continue allopurinol 300 mg daily; continue with routine outpatient follow-up. Disposition: Likely to discharge home with home health as early as tomorrow depending on improvement in cellulitis.
[2018-06-15] MEDS: CEFTRIAXONE 2 GM/50 ML FROZ.PIGGY IV (10:16)
[2018-06-15] MEDS: SODIUM CHLORIDE 0.9% FLUSH 10 ML IV ×2 (10:17→21:45)
[2018-06-15] MEDS: TRIMETH/SULFA 160/800 (DS) TABLET 1 TAB PO (21:45)
[2018-06-16 00:30] VITALS: BP 120/69; PULSE 71; RESP 16; TEMP 36.9; O2SAT 96
--- NOTE | 2018-06-16 00:51 | PC.NURSE ---
2300- Pt admit for RLE cellulitis; R leg remains red & swollen w/ orange peel like texture. Elevated on pillows as instructed, pt denies pain at this time. Moving SBA tp bathroom; on RA; VSS. 2 lumen upper L arm PICC flushes w/o difficulty however, no blood return noted. Pt updated on her status, informed her that the MD will be by in the morning to cont to update her as well. 0120- PO tylenol given for pain in R leg when walking, swallowed w/o difficulty.
[2018-06-16] MEDS: ACETAMINOPHEN 325 MG TABLET 650 MG PO (01:27)
[2018-06-16 04:00] VITALS: BP 115/58; PULSE 71; RESP 16; TEMP 36.4; O2SAT 94
[2018-06-16] MEDS: LEVOTHYROXINE 100 MCG TABLET 200 MCG PO (06:39)
--- NOTE | 2018-06-16 07:33 | PC.NURSE ---
Wound Ostomy Nurse Note with Dr. Anselmo Mead, Consult 06/15/18 I saw Mrs. Alvarez on 06/15/15 in the evening and reported my findings to Dr. Mead. Dr Mead and I went see Mrs. Alvarez on 06/15/18. Mrs. Alvarez in bed with her Right leg up on a pillow. Her lower leg is edematous with erythema, warm to touch and some serous filled loida and a popped loida. There is minimal drainage of serous clear fluid on the chucks that is under her leg. She also has some nodules in a patch on her medial thigh. This area has been marked with a sharpie as well as her lower leg which was done upon her arrival to [facility], per patient. The patient complains of pain when ambulating and complains of pain if she elevates her leg up on four pillows, she is currently elevating her leg on one. Her leg presents as cellulitis, no open measurable wounds. She has a cracked callus from foot fungus under her Right Hallux, which does not appear open. She states that she often has cracks in her heels and toes from the foot fungus and use a foot cream to help with the callus and fungus. Mrs. Alvarez feel that this could of been an entry site for her leg infection or the other potential cause of infection could be from a spa treatment after shaving her legs. We would recommend a protective dressing of an ABD and roll gauze to contain any drainage and we would continue to recommend leg elevation.
[2018-06-16 08:00] VITALS: BP 114/70; PULSE 66; RESP 18; TEMP 36.9; O2SAT 94
--- NOTE | 2018-06-16 08:54 | PM.DS.1 ---
History of Present Illness Date Patient Seen: 06/12/18 Chief complaint: cellulitis right leg, getting worse Narrative: Written by Jatin ISRAEL: Patient is a difficult historian. The patient is a 53-year-old female with PMHx of HTN, osteoarthritis, hypothyroidism, hyperuricemia, PCOS and morbid obesity. She does not have a history of diabetes or peripheral vascular disease. she has prior history of tobacco dependence (noted as socially), however elusive and her disclosure of current or intermittent tobacco use. Patient was encouraged to seek emergent evaluation due to worsening cellulitis, refractory to outpatient therapy. While outpatient patient was treated with Keflex and doxycycline. Patient reports developing sudden onset of rigors on 06/07/2018. In the 48 hours to follow patient reports feeling extremely weak and lethargic. Patient has not taken any OTC medications for supportive care. On Thursday06/09/2017 patient noted right lower extremity edema and an 8x6 cm erythema - per ED documentation. She sought evaluation in the ED on 06/09 and was diagnosed with RLE cellulitis, given 2 gm of IV Rocephin and discharged home on a 10 day course of cephalexin (500 mg QID). RLE U/S ruled out a DVT during that visit. Overnight patient noted worsening degree of edema and erythema. That day, 06/11, she was seen by her PCP for follow-up of RLE cellulitis and diarrhea. Assessment of RLE by PCP as follows right lower extremity-swollen, somewhat dusky red in color, involving calf (not completely circumferential) and smaller area medial upper thigh. Patient was advised to continue with cephalexin for the next 2-3 days and if there was no improvement then consider switching to doxycycline. In the next 2 days patient has not seen any worsening, but also no improvement/resolution. She contacted her PCP again on 06/12 and was prescribed doxycycline of which she has only taken 1 dose. Later in the day continued to be concerned, patient expressed that she did not think the cellulitis was being treated sufficiently. Consequently, she was told to seek a ED evaluation by the on-call provider. Patient has taken cephalexin 500 m of 4 doses - 06/10, 4 of 4 doses - 06/11, and 2 of 4 doses - 06/12 (cephalexin was discontinued / replaced with doxycycline). Patient has not experienced recent illness or trauma to lower extremities. Denies prior history of cellulitis. Recently returned from [place], 1-2 days prior to onset of initial symptoms. While in [place] she reports having a sea salt scrub treatment at a spa, prior to the event notes to have shaving her legs. Denies prior history of diabetes or peripheral vascular disease. she is known to have ongoing fungus of her toenails. Reports cracked feet on occasion. Not aware of having any lacerations (noted to have laceration on the plantar aspect of the rigth foot, between 1st and 2nd toe). Admits to walking barefoot. Patient has a dog that lives inside of the house (reported to be UTD on immunizations). Denies recent strep infection, however does note a history of recurrent strep throat in childhood. Denies exposure to wooded areas or yard work. Does not endorse any specific insects such as spiders in the home. Discharge Providers Date of admission: 06/12/18 21:44 Discharge Date: 06/16/18 Primary care physician: Naz Power PA-C Consults: 06/12/18 19:24 Consult to PICC Line RN Stat Comment: 06/13/18 11:57 Consult to Wound Care Routine Comment: Consulting Provider: [facility] Discharge provider: Coni Liao DO Summary Discharge Diagnosis: 1. Acute non-purulent right leg cellulitis, present on admission. Resolving. 2. Transaminitis, secondary to hepatosteatosis, unclear acuity but likely chronic, present on admission. Active. 3. Acute possibly on chronic hypokalemia, not present on admission. Resolved. 4. Hypertension, chronic, present on admission. Stable. 5. Hypothyroidism, chronic, present on admission. Stable. 6. Osteoarthritis, chronic, present on admission. Stable. 7. Hyperuricemia, chronic, present on admission. Stable. Hospital Course: Mirela Alvarez is a 53-year-old female a past medical history significant for hypertension, osteoarthritis, hypothyroidism, hyperuricemia, PCOS and morbid obesity who presented with worsening right leg cellulitis refractory to outpatient antibiotic therapy. 1. Acute non-purulent right leg cellulitis, present on admission. Resolving. -Multiple potential sources, however likely due to tenia pedis with a fairly significant laceration/opening in the plantar aspect between 1st and 2nd toe. Refractory to outpatient treatment with cephalexin and doxycycline. -Initial WBC 16.1 and procalcitonin 0.91. Trended down to normal. qSOFA score of 0. Does not exhibit hemodynamically instability or acute organ failure. No sign of sepsis. -Wound culture grew Staph haemolyticus resistant to oxacillin. Blood cultures have no growth to date. -MRSA screen negative. Discontinued vancomycin and ceftriaxone. Switched patient to Bactrim DS twice daily for total of 10 days to stop 06/22. -Continued supportive care with rest, antipyretics (Tylenol and ice) and ENCOURAGE elevation. -Consulted wound care for evaluation treatment. We appreciate their time and care of the patient. Patient plans to follow up outpatient at [facility]. 2. Transaminitis, secondary to hepatosteatosis, unclear acuity but likely chronic, present on admission. Active. -Initial AST 96 and ALT 69, in the setting of acute infection. Trending down. Continue to monitor liver function daily. Previously mildly elevated in 2018,, therefore likely chronic. -Avoided liver toxic agents. -Viral hepatitis testing negative for Hep BsAg and Hep C Ab. -Abdominal US demonstrated hepatic steatosis. Discussed non alcoholic steatohepatitis and recommended further evaluation and management outpatient. 3. Acute possibly on chronic hypokalemia, not present on admission. Resolved. -Potentially secondary to loop diuretic. -Initial potassium was 4.7 on admission but 3.3 two days prior to admission in ED which was repleted. After IV fluid hydration potassium has trended down to 3.3. Received potassium chloride 40 mEq PO x1. Continued to monitor and replete as needed. -Recommend continued monitoring outpatient and may need to be on potassium supplementation chronically. 4. Hypertension, chronic, present on admission. Stable. -Continued home atenolol 50 mg daily and initially held Lasix 40 mg as needed for peripheral edema and may resume at time of discharge. 5. Hypothyroidism, chronic, present on admission. Stable. -TSH normal at 2.76. -Continued levothyroxine 200 mcg daily; continue with routine outpatient follow-up. 6. Osteoarthritis, chronic, present on admission. Stable. -Patient uses ibuprofen 600-800 mg 2 to 3 times a week fairly routinely which was recently changed to Aleve. Highly discouraged overuse of NSAIDs. -Continued naproxen 500 mg twice a day as needed and alternate with Tylenol 650 mg every 6 hr as needed. 7. Hyperuricemia, chronic, present on admission. Stable. -Continued allopurinol 300 mg daily; continue with routine outpatient follow-up. Status at Discharge Functional status at discharge: independent ambulation Overall status at discharge: patient is progressing back to baseline Exam Vital Signs (past 8 hours): - 06/16/18 04:00 06/16/18 08:00 Temperature 97.5 F L 98.4 F Pulse Rate 71 66 Respiratory Rate 16 18 Blood Pressure 115/58 L 114/70 Pulse Oximetry 94 94 Oxygen Delivery Method Room Air Oxygen Flow Rate 0 Narrative Exam Narrative: General: Middle-aged morbidly obese female sitting in bed and in no acute distress, well-developed, well-nourished, appropriately interactive. HEENT: Normocephalic, atraumatic. External ears without defect. Pupils equal, round, and reactive to light. Anicteric sclerae, moist conjunctivae, and no lid lag. Neck: Supple with full range of motion. No lymphadenopathy or thyromegaly. Cardiovascular: Regular rate and rhythm without murmurs, rubs, or gallops appreciated. Pulmonary: Clear to auscultation bilaterally without crackles, wheezes, or rhonchi. Normal respiratory effort with no use of accessory muscles. Abdomen: Soft, obese, bowel sounds present, nontender, nondistended. No hepatosplenomegaly or masses appreciated. Extremities: No clubbing or cyanosis. Circumferential erythema and edema of right lower extremity with scattered bullae mostly medially slowly resolving. Left lower extremity without cellulitic changes. Dry skin on bilateral lower extremities with several cracks, especially on plantar aspect of right foot in between 1st and 2nd toes. Several small circular healing abrasions on right medial thigh. Neurological: Cranial nerves grossly intact. Psychiatric: Slightly anxious mood and normal affect. Alert and oriented to person, place, and time. Objective Labs Result Diagrams: 06/16/18 08:50 06/16/18 08:50 Discharge Plan Discharge Plan Patient Disposition: Home Discharge comment: You are being discharged home. You have been prescribed Bactrim twice daily for 7 more days to complete a 10 day course of antibiotics total. Please follow-up with Naz Power at your scheduled appointment regarding your hospitalization and further workup of fatty liver disease and to continue monitoring your liver function. Please follow-up with Dr. Mead at the wound clinic at your scheduled appointment. Discharge Med Rec/Prescriptions Prescriptions: New sulfamethoxazole-trimethoprim 800-160 mg Tablet 1 tab PO BID Qty: 14 RF: 0 Continued ibuprofen [Ibuprofen IB] 200 mg tablet 600 mg PO Q8-10H PRN (Reason: fever / pain) RF: 0 atenolol 50 MG tablet 50 mg PO DAILY Qty: 0 RF: 0 allopurinol 300 mg tablet 300 mg PO DAILY Qty: 30 RF: 0 furosemide 40 mg tablet 40 mg PO DAILY PRN (Reason: Edema) RF: 0 levothyroxine 200 mcg tablet 200 mcg PO DAILY RF: 0 Discontinued doxycycline monohydrate 100 mg tablet 100 mg PO BID Qty: 20 RF: 0 Follow up/Referrals: Naz Power PA-C [Primary Care Provider] - 1 Week (appt:06/23 @ 9:45 with lázaro @ [address] [place] [id number] ) Anselmo Mead MD [Physician] - 1 Week (appt:06/23 @ 1:[address] mead @ [facility] [phone] ) Provider Discharge Instructions Diet: Diet as Tolerated, Low-fat, Low-sodium and Low-cholesterol Activity: Activity as tolerated and elevate leg above the level of the heart when not up walking Skin/Wound/Dressing Care Other wound treatment: Keep leg clean and dry. You may shower but pat leg dry afterward Visit Report/Discharge Packet Instructions: The Mediterranean Diet and Good Health, How To Perform RICE (Rest, Ice, Compress, Elevate) Discharge Data Primary Care Provider: Naz Power Attending Provider: Jatin Nguyen Admit Date/Time: 06/12/18 21:44
[2018-06-16 09:12] LABS: Add Manual Diff / Slide Review NO; Basophils Absolute Auto 0 /uL (0-100); Basophils Percent Auto 0.2 % (0-2); Eosinophils Absolute Auto 100 /uL (0-450); Hematocrit 34.9 % (36-46); Hemoglobin 11.5 g/dL (12.0-16.0); Lymphocytes Absolute Auto 1300 /uL (1100-4500); Lymphocytes Percent Auto 11.4 % (25-40); Mean Corpuscular HGB Conc 32.9 % (30-36); Mean Corpuscular Hemoglobin 28.5 PG (26-34); Mean Corpuscular Volume 86.5 fL (80-100); Monocytes Absolute Auto 600 /uL (0-900); Monocytes Percent Auto 5.2 % (3-14); Neutrophils Absolute Auto 9300 /uL (1500-7000); Neutrophils Percent Auto 82.2 % (50-75); Platelet Count 306 X10^3/uL (150-400); Red Blood Cell Count 4.03 X10^6/uL (4.0-5.2); White Blood Cell Count 11.4 X10^3/uL (4.5-11.0)
[2018-06-16 09:21] LABS: Alanine Aminotransferase 68 IU/L (9-52); Albumin 3.4 g/dL (3.5-5.0); Albumin Globulin Ratio 0.9 (1.0-2.8); Alkaline Phosphatase 100 U/L (38-126); Aspartate Aminotransferase 55 IU/L (14-36); BUN Creatinine Ratio 11.3 (6-22); Bilirubin Total 0.6 mg/dL (0.2-1.3); Blood Urea Nitrogen 9 mg/dL (7-17); Calcium 8.9 mg/dL (8.4-10.2); Carbon Dioxide 31 mmol/L (22-32); Chloride 100 mmol/L (98-107); Estimated Glomerular Filt Rate > 60.0 mL/min (>60); Globulin 3.8 g/dL (1.7-4.1); Glucose 132 mg/dL (70-100); HEMOLYSIS < 15 (0-50); Potassium 3.7 mmol/L (3.4-5.1); Sodium 139 mmol/L (137-145); Total Protein 7.2 g/dL (6.3-8.2)
[2018-06-16] MEDS: ALLOPURINOL 300 MG TABLET PO (09:33)
[2018-06-16] MEDS: SODIUM CHLORIDE 0.9% FLUSH 10 ML IV (09:33)
[2018-06-16] MEDS: TRIMETH/SULFA 160/800 (DS) TABLET 1 TAB PO (09:33)
[2018-06-16] MEDS: ATENOLOL 50 MG TABLET PO (09:33)
[2018-06-16 13:58] LABS: Anti-Streptolysin O Antibody 192 IU/mL (< 200)
== END 2018-06-16 11:40 | disposition home or self-care (01) | DRG 383 ==
LOC: ED 18:48 → AC 06-13 07:49
PROVIDERS: Family Medicine; Internal Medicine; Admitting Provider Nurse Practitioner Gerontology; Emergency Provider Emergency Medicine; PCP Physician Assistant; Visit Provider Nurse Practitioner Gerontology
DX: L03.115 Cellulitis of right lower limb (principal); E66.01 Morbid (severe) obesity due to excess calories; Z68.43 Body mass index [BMI] 50.0-59.9, adult; K76.89 Other specified diseases of liver; E87.6 Hypokalemia; E79.0 Hyperuricemia without signs of inflammatory arthritis and tophaceous disease; B35.3 Tinea pedis; I10 Essential (primary) hypertension; E03.9 Hypothyroidism, unspecified; B96.3 Hemophilus influenzae [H. influenzae] as the cause of diseases classified elsewhere
CPT/HCPCS: 36415; 36569; 36592; 76700; 80053; 80202; 83036; 83605; 83690; 83735; 84145; 84443; 85025; 86060; 86803; 87040; 87070; 87077; 87147; 87186; 87205; 87340; 87797; 96360; 96361; 99283; J0696; J1642; J1644; J3370

== ENCOUNTER 2018-06-20 17:14 | Emergency (ER) | payer OTHER, MEDICAID, SELFPAY ==
[2018-06-12 23:55] VITALS: BMI 50.6
[2018-06-20 17:17] VITALS: BP 100/59; PULSE 62; RESP 20; TEMP 36.6; O2SAT 93
--- NOTE | 2018-06-20 18:12 | ED.SKABFB ---
HPI - Skin/Abscess/Foreign Bdy <LINDY Humphries - Last Filed: 06/20/18 18:19> General Chief complaint: Skin/Abscess/Foreign Body Stated complaint: Selucitis - pt here previously, rt leg bleeding Time Seen by Provider: 06/20/18 17:39 Source: patient Mode of arrival: ambulatory Limitations: no limitations History of Present Illness HPI narrative: pt says she is being txed for cellulitis of the R lower leg, and it is doing better, less redness and it is below the marked line now, but it started to bleed and she didn't know if that was bad or not, denies any new injury, she is taking the abx as prescribed and she has f/u appt Tues, infection started about 2 weeks ago complaint: discoloration Onset (ago): week(s) Location: RLE Relieving factors: other Exacerbating factors: none Associated symptoms: denies other symptoms Treatments prior to arrival: antibiotic Related Data Home Medications Medication Instructions Recorded Confirmed atenolol 50 mg PO DAILY #0 07/12/09 06/12/18 furosemide 40 mg PO DAILY PRN 06/09/18 06/12/18 levothyroxine 200 mcg PO DAILY 06/09/18 06/12/18 ibuprofen 200 mg tablet 600 mg PO Q8-10H PRN 06/10/18 06/12/18 Previous Rx's Medication Instructions Recorded allopurinol 300 mg tablet 300 mg PO DAILY #30 tab 05/17/18 sulfamethoxazole-trimethoprim 1 tab PO BID #14 tab 06/16/18 Allergies Allergy/AdvReac Type Severity Reaction Status Date / Time metoclopramide AdvReac Severe Verified 06/12/18 18:29 NERVOUS/AGITATION AND SUICIDAL THOUGHTS Review of Systems <LINDY Humphries - Last Filed: 06/20/18 18:19> Review of Systems ROS Unobtainable: All systems reviewed & are unremarkable except as noted in HPI and below Constitutional Reports as per HPI and Reports system reviewed and no additional complaints, except as docu Musculoskeletal Reports as per HPI, Reports abnormal gait, Denies deformity, Reports limited range of motion, Denies muscle weakness and Denies numbness Integumentary/Breasts Reports as per HPI, Denies unusual bruising and Reports wounds Neurologic Reports abnormal gait and Denies numbness PFSH <LINDY Humphries - Last Filed: 06/20/18 18:19> Medical History HTN (hypertension) (Chronic) Hypothyroidism (Chronic) Polycystic ovary syndrome (Resolved) Surgical History History of bilateral salpingo-oophorectomy (BSO) (05/11/17) History of third molar tooth extraction Status post adenoidectomy Status post eye surgery Status post laparoscopic cholecystectomy Status post laparoscopic supracervical hysterectomy (05/11/17) Status post surgery (08/08/13) Family History Family/Other Adopted Social History household members: none Smoking Status: Former smoker Tobacco: How many years used: 4 second hand exposure: No alcohol intake: current substance use type: does not use Family History Family/Other Adopted Social History household members: none Smoking Status: Former smoker Tobacco: How many years used: 4 second hand exposure: No alcohol intake: current substance use type: does not use Exam <LINDY Humphries - Last Filed: 06/20/18 18:19> Initial Vital Signs Initial Vital Signs: Vital Signs Temperature 97.9 F 06/20/18 17:17 Pulse Rate 62 06/20/18 17:17 Respiratory Rate 20 06/20/18 17:17 Blood Pressure 100/59 L 06/20/18 17:17 Pulse Oximetry 93 06/20/18 17:17 Const General: cooperative, healthy appearing, comfortable, well developed, well groomed and other Nutritional Appearance: obese Orientation: alert, awake and oriented x3 HENMT Head: normal to inspection and normocephalic Ears: hearing grossly normal bilaterally Nose: external nose normal Face and sinus: normal facial exam Eyes General: appearance normal, both eyes and all related structures Visual Smith: normal visual smith by confrontation Eyelids: eyelids normal Pupils: PERRL Neck Neck: normal visual inspection, full ROM and trachea midline Resp Effort & Inspection: normal respiratory effort and able to speak in complete sentences Back/Spine/Pelvis Back: normal to inspection Cervical Spine: cervical ROM normal Thoracic/Lumbar Spine: thoraco-lumbar ROM normal Skin General: no rashes or lesions noted, elasticity normal, turgor normal and erythema Rashes: no rashes Other: cellulitis noted to R lower leg area, erythema with weeping wounds, and one area on the inside top of calf area that had cracked and had dried blood on skin, area of erythema is below the marked lines Neuro General: alert, awake and oriented x3 Cranial Nerves: CN's II-XI intact bilaterally Cognition: normal cognition Speech: speech normal Motor: muscle tone normal throughout Sensory Exam: no sensory deficits noted Extrem General: normal to inspection, full ROM, capillary refill normal and limp Right upper extremity: normal to inspection and full ROM Left upper extremity: normal to inspection and full ROM Right lower extremity: normal to inspection and full ROM Left lower extremity: normal to inspection and full ROM Psych Appearance: grossly normal and well kempt Mental Status: mental status grossly normal Mood: congruent mood Affect: normal affect Attitude: cooperative Thought Process: normal Thought Content: normal Judgment: judgment good <DO Sean Banks Last Filed: 06/21/18 08:01> Initial Vital Signs Initial Vital Signs: Vital Signs Temperature 97.9 F 06/20/18 17:17 Pulse Rate 62 06/20/18 17:17 Respiratory Rate 20 06/20/18 17:17 Blood Pressure 100/59 L 06/20/18 17:17 Pulse Oximetry 93 06/20/18 17:17 Course <LINDY Humphries - Last Filed: 06/20/18 18:19> Course Narrative: tx options discussed and pt declined labs and work up to r/o sepsis, no fever, says leg redness is better, less pain, agreed to continue abx as previously directed, see pcp on as scheduled, and we discussed for her to start washing the leg, she has not been really washing the area or doing any wound care, only was rinsing it off in shower Vital Signs - 8 hr 06/20/18 17:17 Temperature 97.9 F Pulse Rate 62 Respiratory Rate 20 Blood Pressure 100/59 L Pulse Oximetry 93 <DO Sean Banks Filed: 06/21/18 08:01> Vital Signs - 8 hr 06/20/18 17:17 Temperature 97.9 F Pulse Rate 62 Respiratory Rate 20 Blood Pressure 100/59 L Pulse Oximetry 93 MDM - Skin/Abscess/Foreign Bdy <LINDY Humphries - Last Filed: 06/20/18 18:19> Differential Diagnosis Likely abscess of skin or subcutaneous tissue, cellulitis, insect bites, impetigo, contact dermatitis and other (sepsis) Discharge Plan Departure Patient Disposition: Home Clinical Impression: Cellulitis of leg, right Discharge Date/Time: 06/20/18 19:11 Interventions: ED Discharge Assessment Last Done: 06/20/18 19:08 Instructions: DI for Cellulitis -- Adult Activity Restrictions/Additional Instructions: continue taking antibiotics as previous and discussed Prescriptions: No Action ibuprofen [Ibuprofen IB] 200 mg tablet 600 mg PO Q8-10H PRN (Reason: fever / pain) RF: 0 atenolol 50 MG tablet 50 mg PO DAILY Qty: 0 RF: 0 allopurinol 300 mg tablet 300 mg PO DAILY Qty: 30 RF: 0 furosemide 40 mg tablet 40 mg PO DAILY PRN (Reason: Edema) RF: 0 levothyroxine 200 mcg tablet 200 mcg PO DAILY RF: 0 sulfamethoxazole-trimethoprim 800-160 mg Tablet 1 tab PO BID Qty: 14 RF: 0 Referrals: Naz Power PA-C [Primary Care Provider] - 06/22/18 (as scheduled) <Racquel Castro DO - Last Filed: 06/21/18 08:01> Cosign ED Attending Cosignature Attestation: I was immediately available in the department for consultation. This documentation has been reviewed and I agree with assessment and plan. Supervised by Racquel Castro DO
[2018-06-20 18:43] VITALS: BP 111/59; PULSE 54; RESP 17; O2SAT 97
--- NOTE | 2018-06-20 19:07 | PC.NURSE ---
leg cleansed with soap and water. dry gauze applied to leg and wrapped with curlex and cobain on non- wound edges to keep gauze in place and not cover wound. pt. taught how to do
== END 2018-06-20 19:11 | disposition home or self-care (01) ==
PROVIDERS: Emergency Provider Nurse Practitioner; PCP Physician Assistant
DX: L03.115 Cellulitis of right lower limb (principal)
CPT/HCPCS: 99282

== ENCOUNTER → 2018-06-23 13:15 | Outpatient (CLI) | payer OTHER, MEDICAID, SELFPAY ==
[2018-06-12 23:55] VITALS: BMI 50.6
--- NOTE | 2018-06-17 07:40 | PC.NURSE ---
Wound Nurse Consult Note Addendum Dr. 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 We also did not find any pronounced foot fungus (athletes foot) yet she does have onychomycosis. We did not visualize any laceration or wound in the plantar aspect of her foot between the 1st and 2nd toe, at best there was a fissure that was not open.
== END ==
PROVIDERS: PCP Physician Assistant; Visit Provider Family Medicine
DX: I87.311 Chronic venous hypertension (idiopathic) with ulcer of right lower extremity (principal); L97.811 Non-pressure chronic ulcer of other part of right lower leg limited to breakdown of skin; I89.0 Lymphedema, not elsewhere classified; L03.115 Cellulitis of right lower limb
CPT/HCPCS: 36415; 80053; 80061; 84134; 84550; 85025; 85651; 86140; 87070; 87075; 87077; 87186; 87205; 97597; 97598; 99203; 99213

== ENCOUNTER → 2018-06-23 15:29 | Outpatient (CLI) | payer OTHER, MEDICAID, SELFPAY ==
[2018-06-12 23:55] VITALS: BMI 50.6
[2018-06-23 17:07] LABS: Add Manual Diff / Slide Review NO; Basophils Absolute Auto 0 /uL (0-100); Basophils Percent Auto 0.6 % (0-2); Eosinophils Absolute Auto 100 /uL (0-450); Eosinophils Percent Auto 1.5 % (2-4); Hemoglobin 10.8 g/dL (12.0-16.0); Lymphocytes Absolute Auto 1700 /uL (1100-4500); Mean Corpuscular HGB Conc 32.7 % (30-36); Mean Corpuscular Hemoglobin 28.4 PG (26-34); Mean Corpuscular Volume 86.8 fL (80-100); Monocytes Absolute Auto 800 /uL (0-900); Monocytes Percent Auto 10.9 % (3-14); Neutrophils Absolute Auto 4300 /uL (1500-7000); Platelet Count 427 X10^3/uL (150-400); Red Blood Cell Count 3.81 X10^6/uL (4.0-5.2); Red Cell Distribution Width 15.5 % (11.6-14.8); White Blood Cell Count 6.9 X10^3/uL (4.5-11.0)
[2018-06-23 17:26] LABS: Alanine Aminotransferase 47 IU/L (9-52); Albumin 3.5 g/dL (3.5-5.0); Albumin Globulin Ratio 0.9 (1.0-2.8); Alkaline Phosphatase 87 U/L (38-126); Aspartate Aminotransferase 32 IU/L (14-36); BUN Creatinine Ratio 8.9 (6-22); Bilirubin Total 0.4 mg/dL (0.2-1.3); Blood Urea Nitrogen 8 mg/dL (7-17); C-Reactive Protein Quant 7.9 mg/dL (<1.0); Calcium 9.3 mg/dL (8.4-10.2); Carbon Dioxide 31 mmol/L (22-32); Chloride 98 mmol/L (98-107); Estimated Glomerular Filt Rate > 60.0 mL/min (>60); Globulin 3.9 g/dL (1.7-4.1); Glucose 89 mg/dL (70-100); HEMOLYSIS < 15 (0-50); Sodium 138 mmol/L (137-145); Total Protein 7.4 g/dL (6.3-8.2)
[2018-06-23 17:27] LABS: Cholesterol 185 mg/dL (140-199); HDL Cholesterol 36 mg/dL (40-60); LDL Cholesterol Calculated 122 mg/dL (<100); Triglycerides 135 mg/dL (35-150)
[2018-06-23 17:30] LABS: Erythrocyte Sedimentation Rate 106 MM/HR (0-20)
[2018-06-23 17:31] LABS: Potassium 5.5 mmol/L (3.4-5.1)
[2018-06-23 17:36] LABS: Prealbumin 12.5 mg/dL (17.6-36.0)
== END ==
PROVIDERS: PCP Physician Assistant; Visit Provider Family Medicine
DX: L03.90 Cellulitis, unspecified (principal); E79.0 Hyperuricemia without signs of inflammatory arthritis and tophaceous disease; E78.2 Mixed hyperlipidemia
CPT/HCPCS: 36415; 80053; 80061; 84134; 84550; 85025; 85651; 86140

== ENCOUNTER → 2018-06-25 14:01 | Outpatient (CLI) | payer OTHER, MEDICAID, SELFPAY ==
[2018-06-12 23:55] VITALS: BMI 50.6
== END ==
PROVIDERS: PCP Physician Assistant; Visit Provider Family Medicine
DX: L03.115 Cellulitis of right lower limb (principal); I89.0 Lymphedema, not elsewhere classified; I87.2 Venous insufficiency (chronic) (peripheral); L97.811 Non-pressure chronic ulcer of other part of right lower leg limited to breakdown of skin
CPT/HCPCS: 97597; 97598; 99213

== ENCOUNTER → 2018-06-29 09:48 | Outpatient (CLI) | payer OTHER, MEDICAID, SELFPAY ==
[2018-06-12 23:55] VITALS: BMI 50.6
--- NOTE | 2018-06-29 | DI.RAD.S_ITS ---
PROCEDURE: FL GUIDED PICC PLACEMENT INDICATIONS: Cellulitis of right lower limb COMPARISON: [facility], CR, XR CHEST 2V, 03/19/2018, 11:39. [facility], US, US ABDOMEN COMPLETE, 06/14/2018, 8:20. FINDINGS: PICC was placed by the intravenous therapy team from the right side. Fluoroscopic spot film demonstrates tip of PICC in the superior vena cava. IMPRESSION: Tip of PICC lies within the superior vena cava. Dictated by: Roshan Dee M.D. on 06/29/2018 at 11:21 Approved by: Roshan Dee M.D. on 06/29/2018 at 11:21
== END ==
PROVIDERS: PCP Physician Assistant; Visit Provider Family Medicine
DX: Z45.2 Encounter for adjustment and management of vascular access device (principal); L03.115 Cellulitis of right lower limb
CPT/HCPCS: 36573

== ENCOUNTER → 2018-06-29 14:55 | Outpatient (CLI) | payer OTHER, MEDICAID, SELFPAY ==
[2018-06-12 23:55] VITALS: BMI 50.6
== END ==
PROVIDERS: PCP Physician Assistant; Visit Provider Family Medicine
DX: I87.2 Venous insufficiency (chronic) (peripheral) (principal); L97.811 Non-pressure chronic ulcer of other part of right lower leg limited to breakdown of skin; L03.115 Cellulitis of right lower limb; Z16.12 Extended spectrum beta lactamase (ESBL) resistance
CPT/HCPCS: 97597; 97598

== ENCOUNTER → 2018-07-02 16:40 | Outpatient (CLI) | payer OTHER, MEDICAID, SELFPAY ==
[2018-06-12 23:55] VITALS: BMI 50.6
== END ==
PROVIDERS: PCP Physician Assistant; Visit Provider Family Medicine
DX: I87.2 Venous insufficiency (chronic) (peripheral) (principal); L97.812 Non-pressure chronic ulcer of other part of right lower leg with fat layer exposed; I89.0 Lymphedema, not elsewhere classified; L03.115 Cellulitis of right lower limb; B96.29 Other Escherichia coli [E. coli] as the cause of diseases classified elsewhere; Z16.12 Extended spectrum beta lactamase (ESBL) resistance
CPT/HCPCS: 99213

== ENCOUNTER → 2018-07-06 13:19 | Outpatient (CLI) | payer OTHER, MEDICAID, SELFPAY ==
[2018-06-12 23:55] VITALS: BMI 50.6
== END ==
PROVIDERS: PCP Physician Assistant; Visit Provider Family Medicine
DX: I87.311 Chronic venous hypertension (idiopathic) with ulcer of right lower extremity (principal); L97.812 Non-pressure chronic ulcer of other part of right lower leg with fat layer exposed
CPT/HCPCS: 97597; 97598

== ENCOUNTER → 2018-07-06 15:09 | Outpatient (CLI) | payer OTHER, MEDICAID, SELFPAY ==
[2018-06-12 23:55] VITALS: BMI 50.6
[2018-07-06 15:51] LABS: Add Manual Diff / Slide Review NO; Basophils Absolute Auto 100 /uL (0-100); Basophils Percent Auto 0.9 % (0-2); Eosinophils Absolute Auto 100 /uL (0-450); Eosinophils Percent Auto 1.9 % (2-4); Hematocrit 36.7 % (36-46); Hemoglobin 11.8 g/dL (12.0-16.0); Lymphocytes Absolute Auto 1800 /uL (1100-4500); Lymphocytes Percent Auto 26.4 % (25-40); Mean Corpuscular HGB Conc 32.2 % (30-36); Mean Corpuscular Volume 83.8 fL (80-100); Monocytes Absolute Auto 600 /uL (0-900); Monocytes Percent Auto 8.3 % (3-14); Neutrophils Absolute Auto 4200 /uL (1500-7000); Neutrophils Percent Auto 62.5 % (50-75); Platelet Count 311 X10^3/uL (150-400); Red Blood Cell Count 4.37 X10^6/uL (4.0-5.2); Red Cell Distribution Width 15.5 % (11.6-14.8); White Blood Cell Count 6.7 X10^3/uL (4.5-11.0)
[2018-07-06 16:04] LABS: Alanine Aminotransferase 25 IU/L (9-52); Albumin 4.1 g/dL (3.5-5.0); Albumin Globulin Ratio 0.9 (1.0-2.8); Alkaline Phosphatase 105 U/L (38-126); Aspartate Aminotransferase 32 IU/L (14-36); BUN Creatinine Ratio 18.3 (6-22); Bilirubin Total 0.3 mg/dL (0.2-1.3); Blood Urea Nitrogen 11 mg/dL (7-17); C-Reactive Protein Quant 1.3 mg/dL (<1.0); Calcium 9.6 mg/dL (8.4-10.2); Carbon Dioxide 25 mmol/L (22-32); Chloride 104 mmol/L (98-107); Estimated Glomerular Filt Rate > 60.0 mL/min (>60); Globulin 4.7 g/dL (1.7-4.1); Glucose 87 mg/dL (70-100); HEMOLYSIS < 15 (0-50); Potassium 3.5 mmol/L (3.4-5.1); Sodium 141 mmol/L (137-145); Total Protein 8.8 g/dL (6.3-8.2)
[2018-07-06 16:05] LABS: Erythrocyte Sedimentation Rate 58 MM/HR (0-20)
== END ==
PROVIDERS: PCP Physician Assistant; Visit Provider Family Medicine
DX: L03.115 Cellulitis of right lower limb (principal)
CPT/HCPCS: 36415; 80053; 85025; 85651; 86140

== ENCOUNTER → 2018-07-09 13:16 | Outpatient (CLI) | payer OTHER, MEDICAID, SELFPAY ==
[2018-06-12 23:55] VITALS: BMI 50.6
== END ==
PROVIDERS: PCP Physician Assistant; Visit Provider Family Medicine
DX: I89.0 Lymphedema, not elsewhere classified (principal); B96.29 Other Escherichia coli [E. coli] as the cause of diseases classified elsewhere; Z16.12 Extended spectrum beta lactamase (ESBL) resistance; B37.3 Candidiasis of vulva and vagina; I87.2 Venous insufficiency (chronic) (peripheral); L97.811 Non-pressure chronic ulcer of other part of right lower leg limited to breakdown of skin
CPT/HCPCS: 97597; 99212

== ENCOUNTER → 2018-07-09 15:10 | Outpatient (CLI) | payer OTHER, MEDICAID, SELFPAY ==
[2018-06-12 23:55] VITALS: BMI 50.6
[2018-07-09 17:00] LABS: Erythrocyte Sedimentation Rate 98 MM/HR (0-20)
== END ==
PROVIDERS: PCP Physician Assistant; Visit Provider Family Medicine
DX: I87.033 Postthrombotic syndrome with ulcer and inflammation of bilateral lower extremity (principal); L03.115 Cellulitis of right lower limb
CPT/HCPCS: 36415; 85651; 86140

== ENCOUNTER → 2018-07-12 14:28 | Outpatient (CLI) | payer OTHER, MEDICAID, SELFPAY ==
[2018-06-12 23:55] VITALS: BMI 50.6
== END ==
PROVIDERS: PCP Physician Assistant; Visit Provider Family Medicine
DX: I87.2 Venous insufficiency (chronic) (peripheral) (principal); L97.812 Non-pressure chronic ulcer of other part of right lower leg with fat layer exposed
CPT/HCPCS: 99213

== ENCOUNTER → 2018-07-20 11:17 | Outpatient (CLI) | payer OTHER, MEDICAID, SELFPAY ==
[2018-06-12 23:55] VITALS: BMI 50.6
== END ==
PROVIDERS: PCP Physician Assistant; Visit Provider Family Medicine
DX: I87.2 Venous insufficiency (chronic) (peripheral) (principal); I89.0 Lymphedema, not elsewhere classified
CPT/HCPCS: 99212; 99213

== ENCOUNTER → 2018-08-24 15:00 | Outpatient (CLI) | payer OTHER, MEDICAID, SELFPAY ==
[2018-06-12 23:55] VITALS: BMI 50.6
--- NOTE | 2018-08-24 15:03 | DI.RAD.S_ITS ---
PROCEDURE: XR ANKLE LT MIN 3V INDICATIONS: Bilateral ankle pain - possible osteoarthritis TECHNIQUE: 3 views of the ankle were acquired. COMPARISON: None. FINDINGS: Bones: No fractures or dislocations. Ankle mortise is normally aligned. No suspicious bony lesions. There is moderate degenerative joint disease. Osteopenia. Soft tissues: No tibiotalar joint effusion. Achilles tendon appears normal. Diffuse soft tissue swelling. Calcification in the plantar fascia. IMPRESSION: 1. Moderate degenerative joint disease. 2. Osteopenia. 3. Soft tissue swelling. Dictated by: Roshan Dee M.D. on 08/24/2018 at 17:38 Approved by: Roshan Dee M.D. on 08/24/2018 at 17:42
--- NOTE | 2018-08-24 15:03 | DI.RAD.S_ITS ---
PROCEDURE: XR ANKLE RT MIN 3V INDICATIONS: Bilateral ankle pain - possible osteoarthritis TECHNIQUE: 3 views of the ankle were acquired. COMPARISON: [facility], CR, XR ANKLE LT MIN 3V, 08/24/2018, 15:34. FINDINGS: Bones: No fractures or dislocations. Ankle mortise is normally aligned. No suspicious bony lesions. There is moderate to severe degenerative joint disease. Calcaneal spurring. Mild osteopenia. Soft tissues: No tibiotalar joint effusion. Achilles tendon appears normal. Diffuse soft tissue swelling. IMPRESSION: 1. Moderate to severe degenerative joint disease. 2. Calcaneal spurring. 3. Mild osteopenia. 4. Diffuse soft tissue swelling. Dictated by: Roshan Dee M.D. on 08/24/2018 at 17:42 Approved by: Roshan Dee M.D. on 08/24/2018 at 17:45
== END ==
PROVIDERS: PCP Physician Assistant; Visit Provider Physician Assistant
DX: Z78.0 Asymptomatic menopausal state (principal); E28.39 Other primary ovarian failure; S32.000A Wedge compression fracture of unspecified lumbar vertebra, initial encounter for closed fracture; E07.9 Disorder of thyroid, unspecified; M25.571 Pain in right ankle and joints of right foot; M25.572 Pain in left ankle and joints of left foot; M19.072 Primary osteoarthritis, left ankle and foot; M19.071 Primary osteoarthritis, right ankle and foot; M85.872 Other specified disorders of bone density and structure, left ankle and foot; M85.871 Other specified disorders of bone density and structure, right ankle and foot; M77.31 Calcaneal spur, right foot; M79.89 Other specified soft tissue disorders; Z87.891 Personal history of nicotine dependence
CPT/HCPCS: 73610; 77080

== ENCOUNTER → 2018-10-25 10:29 | Outpatient (CLI) | payer OTHER, MEDICAID, SELFPAY ==
[2018-06-12 23:55] VITALS: BMI 50.6
[2018-10-25 12:01] LABS: Add Manual Diff / Slide Review NO; Basophils Absolute Auto 0 /uL (0-100); Basophils Percent Auto 0.3 % (0-2); Eosinophils Absolute Auto 0 /uL (0-450); Hematocrit 40.1 % (36-46); Hemoglobin 13.5 g/dL (12.0-16.0); Lymphocytes Absolute Auto 800 /uL (1100-4500); Lymphocytes Percent Auto 8.4 % (25-40); Mean Corpuscular HGB Conc 33.6 % (30-36); Mean Corpuscular Hemoglobin 28.8 PG (26-34); Mean Corpuscular Volume 85.7 fL (80-100); Monocytes Absolute Auto 700 /uL (0-900); Monocytes Percent Auto 6.8 % (3-14); Neutrophils Absolute Auto 8200 /uL (1500-7000); Neutrophils Percent Auto 84.5 % (50-75); Platelet Count 166 X10^3/uL (150-400); Red Blood Cell Count 4.68 X10^6/uL (4.0-5.2); White Blood Cell Count 9.7 X10^3/uL (4.5-11.0)
[2018-10-25 13:11] LABS: Procalcitonin 0.13 ng/mL (<0.5)
== END ==
PROVIDERS: PCP Physician Assistant; Visit Provider Registered Nurse
DX: A09 Infectious gastroenteritis and colitis, unspecified (principal); L03.115 Cellulitis of right lower limb
CPT/HCPCS: 36415; 84145; 85025

== ENCOUNTER → 2018-10-26 11:44 | Outpatient (CLI) | payer OTHER, MEDICAID, SELFPAY ==
[2018-06-12 23:55] VITALS: BMI 50.6
[2018-10-30 13:45] LABS: Fecal Immunochemical Test NOT DETECTED (NOT DETECTED)
== END ==
PROVIDERS: PCP Physician Assistant; Visit Provider Physician Assistant
DX: Z12.11 Encounter for screening for malignant neoplasm of colon (principal)
CPT/HCPCS: 82274

== ENCOUNTER 2018-12-14 09:00 | Outpatient (RCR) | payer OTHER, MEDICAID, SELFPAY ==
[2018-06-12 23:55] VITALS: BMI 50.6
--- NOTE | 2018-09-29 17:35 | PT.OPPOC ---
Current Diagnoses Pain in right knee (09/29/18) Pain in left knee (09/29/18) Pain in right ankle and joints of right foot (09/29/18) Pain in left ankle and joints of left foot (09/29/18) Low back pain (09/29/18) Provider Visit Care Team Role Provider Type Naz Power PA-C Attending Provider Advanced Attorney Law Clerk Primary Care Provider Specialty: Medical Address: [address] [place] [address], [facility] Email: [email or web address] Plan Of Care PT-OP-T Assessment and Plan Start: 09/29/18 08:55 Freq: Status: Active Protocol: Document 09/29/18 08:57 EA (Rec: 09/29/18 08:58 EA [id number]) Physical Therapy Assessment Rehab Potential Rehabilitation Potential Fair Evaluation Complexity Number of Personal Factors/Comorbidities 1-2 Number of Body Systems Impaired 3 Clinical Presentation at Evaluation Evolving Impairments Impairments Activity Tolerance Edema Functional Activities Gait Pain Posture Soft Tissue Mobility Strength Goals Four Impairment Step to gait on regular stairs Prison Goal (LTG) Patient will use her apartment stairs with alternating feet with no increase of symptoms. Three Impairment Impaired distance amb Prison Goal (LTG) Patient will amb more than a mile without difficulty LTG Duration 5 wks Two Impairment LEFS scoer 40/80 Body Masker Goal (LTG) LEFS score of more than 50/80 to enhance quality of life LTG Duration 5 wks One Impairment No HEP In place Prison Goal (LTG) Patient will exhibit independent HEP Assessment Summary Assessment Pleasant, slow ambulatory with no acute distress 53 y/o F patient with a referring diagnosis of pain to both knees and ankles. Today Patient presented with ambulatory difficulty with abnormal gait pattern and pain during joint assessment. Knees assessment reveals patellofemoral dysfunction with tests positive to DJD lateral facets. Both TC joints tests negative to collateral ligaments sprain. Tenderness LE's major ms group suggesting myofascial tightness. Major muscle group to both hip, knees and ankles show mild tightness. No significant weakness noted to both LE's at this time. Skin discoloration d/t cellulitis is noted but no signs of active infection. Patient would greatly benefit with skilled PT focusing on her increasing muscular excursion, increasing activity tolerance, increasing joint ROM and education for safe weight loss and home exercises program and reducing pain with the use of modalities. Physical Therapy Plan Frequency and Duration Frequency of Treatment 2x/Week Duration of Treatment 8 wks Plan of Care Start Date 09/29/18 Plan of Care End Date 11/24/18 Therapeutic Interventions Therapeutic Interventions Gait Training Home Exercise Program Joint Mobilizations Lymphedema Management Manual Therapy Patient/Caregiver Education Self-Care/Home Management Soft Tissue Mobilization Taping Therapeutic Exercises Modalities Cold Pack/Ice Massage Electric Stimulation Hot Packs Ultrasound Next Visit Focus/Plan Next Note Type Treatment Note Next Visit Plan Provide HEP, strengthening, modalities for pain. Plan of Care Dates Plan of Care Start Date 09/29/18 Plan of Care End Date 11/24/18 Please Sign and Return: I have reviewed this Plan of Care and certify that the skilled therapy services above are required to meet the patient?s needs. Physician Signature Date Printed Name and Credentials Clinical Instructor Signature Printed Name and Credentials
--- NOTE | 2018-09-29 17:35 | PT.OIE ---
Current Diagnoses Pain in right knee (09/29/18) Pain in left knee (09/29/18) Pain in right ankle and joints of right foot (09/29/18) Pain in left ankle and joints of left foot (09/29/18) Low back pain (09/29/18) Past Medical History (Last Reviewed 06/20/18 @ 18:15 by LINDY Humphries) HTN (hypertension) (Chronic) Hypothyroidism (Chronic) Polycystic ovary syndrome (Resolved) Past Surgical History (Last Reviewed 06/20/18 @ 18:15 by LINDY Humphries) History of bilateral salpingo-oophorectomy (BSO) (05/11/17) History of third molar tooth extraction Status post adenoidectomy Status post eye surgery Status post laparoscopic cholecystectomy Status post laparoscopic supracervical hysterectomy (05/11/17) Status post surgery (08/08/13) Provider Visit Care Team Role Provider Type Naz Power PA-C Attending Provider Advanced Wet Process Technician Primary Care Provider Specialty: Medical Address: [address] [place] [address], [facility] Email: [email or web address] Physical Therapy Initial Evaluation PT-OP-A Visit Information Start: 09/29/18 08:55 Freq: Status: Active Protocol: Document 09/29/18 08:58 EA (Rec: 09/29/18 08:59 EA [id number]) Out-Patient Physical Therapy Visit Information Visit Information Visit Type Initial Evaluation Visit Start Time 07:30 Visit Stop Time 08:10 Total Visit Minutes 35 Visit Number 1 Number of INSPECTOR INSULATION Visits 0 Evaluation Information Evaluation Date 09/29/18 Precautions Precautions Left leg cellulitis PT-OP-B Current Condition Start: 09/29/18 08:55 Freq: Status: Active Protocol: Document 09/29/18 17:35 EA (Rec: 10/04/18 07:46 EA [id number]) Current Condition History of Current Condition Onset Date Chronic, ~ 5 years ago Current Complaints Both knees and ankle aching pain and hip joint LOM History of Current Condition Patient reports multiple years of chronic joint pain to both knees and ankle with no history of previous injury. She reports gradual onset which she feels both LE's swelling and pain is less upon waking up in the morning and gradually builds up late afternoon after work. She has been taking OTC pain meds to managed pain. She reports that symptoms are on and off. She mentioned that she has lost 20 lbs of BW through walking and being active all day with the combination of good but not excellent diet. She reports that she wants to go back to previous water aerobics exercises, hoever has been bothering by cellulitis. 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 Prior Treatments and Tests NO formal PT or treatment in the past Recent X-rays to B knees and ankle MRI to lumbar region 04/2018 Future Testing and Treatments Planned None reported Treatment Goals Patient/Caregiver Goals 1. Wants to navigate stairs with normal alternating steps ability 2. Be able to walk > 3 blocks with good speed 3. 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 Baseline Function- Recreation/Hobbies Walking daily Current Functional Impairments (Reported) Functional Limitations- ADL's Independent Functional Limitations- Mobility/Gait Limited to less than 2 blocks with very slow az and waddling gait Functional Limitations- Work/School 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 Patient Reported Progress Worse Patient Questionnaires Lower Extremity Functional Scale LEFS Score 40 LEFS Impairment 40 to 59% Impaired (Score 32- 47) OP-PT Pain Assessment Pain Assessment Grid Paper Pain Assessment Grid Completed Yes Home Pain Medication Use Pain Medications Used Yes Comments Pain Comments Patient shows no acute distress during amb but slow and waddled while ambulating. Facial grimace noted with PROM to both knees and ankle PT-OP-D Balance Start: 09/29/18 08:55 Freq: Status: Active Protocol: Document 09/29/18 17:30 EA (Rec: 09/30/18 08:10 EA [id number]) OP-PT Balance Assessment Sitting Balance Static Sitting Balance Ability Normal Sanchez Fall Scale Copyright Permission PT-OP-F Manual Assessment Start: 09/29/18 08:55 Freq: Status: Active Protocol: Document 09/29/18 17:30 EA (Rec: 09/30/18 08:10 EA [id number]) Manual Assessments Soft Tissue Assessment Soft Tissue Mobility Assessment Tightness to both calves, B quads, ITB, hip E-Rotators, hip flexors Joint Mobility Assessment Joint Mobility Assessment hypomobility to both TC joint PT-OP-G Mobility & Gait Start: 09/29/18 08:55 Freq: Status: Active Protocol: Document 09/29/18 17:30 EA (Rec: 09/30/18 08:10 EA [id number]) OP Gait Assessment Gait Gait Assistance Required: Independent Gait Deviations General Gait Pattern Decreased Stride Length Decreased Feet Clearance Wide Based Gait Comments Gait Comments Waddling gait with no push off , and wide base. Stair Climbing Evaluation Comments Stair Climbing Comments Step to with rails support PT-OP-J Posture/Palpation/Skin Start: 09/29/18 08:55 Freq: Status: Active Protocol: Document 09/29/18 17:30 EA (Rec: 09/30/18 08:10 EA [id number]) Palpation Assessment Location One Palpation Location Both lateral patellar facets with more in the left Palpation Findings Tenderness Palpation Details Grade 2/4 at left lateral knee and right upper gluteals and SI joint Skin Assessment Edema Assessment Bilateral Ankle Edema Type Non-Pitting Edema Degree 1+ Subjective Edema Description Tightness Comments Cellulitis to left leg Circumference Measurement 1 Location malleolus, both Measurement (Centimeters) 37 PT-OP-K Range of Motion Start: 09/29/18 08:55 Freq: Status: Active Protocol: Document 09/29/18 17:00 EA (Rec: 09/30/18 15:00 EA [id number]) Knee Goniometric Range of Motion Knee ROM Limitations Knee ROM Limitations Soft Tissue Tightness Pain Swelling Comments Both knee flexion-extension: 125 to 5 extension Ankle and Foot Goniometric Range of Motion Ankle and Foot Left Active Testing Position Sitting Dorsiflexion with Knee Flexed 5 Plantarflexion 40 Inversion 20 Eversion 10 Right Active Testing Position Sitting Dorsiflexion with Knee Flexed 5 Plantarflexion 40 Inversion 20 Eversion 10 Ankle and Foot ROM Limitations ROM Limitations Soft Tissue Tightness Muscle Weakness Pain PT-OP-L Special Tests Start: 09/29/18 08:55 Freq: Status: Active Protocol: Document 09/29/18 17:30 EA (Rec: 09/30/18 08:10 EA [id number]) Special Tests Knee Special Tests Edilson's Test Test Results + both Patellar Grind Test Test Results + both Varus- 25 Degrees Test Results - Valgus- 25 Degrees Test Results - Silvio's Sign Test Results + both PT-OP-M Strength Start: 09/29/18 08:55 Freq: Status: Active Protocol: Document 09/29/18 17:30 EA (Rec: 09/30/18 08:10 EA [id number]) Hip Strength Hip Manual Muscle Testing Right Flexion (L2) 4- Good- Extension (S1) 4- Good- Abduction 4- Good- Adduction 4- Good- External Rotation 4 Good Internal Rotation 4 Good Left Flexion (L2) 4- Good- Extension (S1) 4- Good- Abduction 4- Good- Adduction 4- Good- External Rotation 4 Good Internal Rotation 4 Good Knee Strength Knee Manual Muscle Testing Right Flexion (S2) 4 Good Extension (L3) 4- Good- Left Flexion (S2) 4+ Good+ Extension (L3) 5 Normal Ankle/Foot Strength Ankle and Foot Manual Muscle Testing Left Dorsiflexion (L4) 4+ Good+ Plantarflexion (S1) 4+ Good+ Inversion 4+ Good+ Eversion (S1) 4+ Good+ PT-OP-T Assessment and Plan Start: 09/29/18 08:55 Freq: Status: Active Protocol: Document 09/29/18 08:57 EA (Rec: 09/29/18 08:58 EA [id number]) Physical Therapy Assessment Rehab Potential Rehabilitation Potential Fair Evaluation Complexity Number of Personal Factors/Comorbidities 1-2 Number of Body Systems Impaired 3 Clinical Presentation at Evaluation Evolving Impairments Impairments Activity Tolerance Edema Functional Activities Gait Pain Posture Soft Tissue Mobility Strength Goals Four Impairment Step to gait on regular stairs Group Home Goal (LTG) Patient will use her apartment stairs with alternating feet with no increase of symptoms. Three Impairment Impaired distance amb Fleece Tier Goal (LTG) Patient will amb more than a mile without difficulty LTG Duration 5 wks Two Impairment LEFS scoer 40/80 Fleece Tier Goal (LTG) LEFS score of more than 50/80 to enhance quality of life LTG Duration 5 wks One Impairment No HEP In place Group Home Goal (LTG) Patient will exhibit independent HEP Assessment Summary Assessment Pleasant, slow ambulatory with no acute distress 53 y/o F patient with a referring diagnosis of pain to both knees and ankles. Today Patient presented with ambulatory difficulty with abnormal gait pattern and pain during joint assessment. Knees assessment reveals patellofemoral dysfunction with tests positive to DJD lateral facets. Both TC joints tests negative to collateral ligaments sprain. Tenderness LE's major ms group suggesting myofascial tightness. Major muscle group to both hip, knees and ankles show mild tightness. No significant weakness noted to both LE's at this time. Skin discoloration d/t cellulitis is noted but no signs of active infection. Patient would greatly benefit with skilled PT focusing on her increasing muscular excursion, increasing activity tolerance, increasing joint ROM and education for safe weight loss and home exercises program and reducing pain by the use of modalities. Physical Therapy Plan Frequency and Duration Frequency of Treatment 2x/Week Duration of Treatment 8 wks Plan of Care Start Date 09/29/18 Plan of Care End Date 11/24/18 Therapeutic Interventions Therapeutic Interventions Gait Training Home Exercise Program Joint Mobilizations Lymphedema Management Manual Therapy Patient/Caregiver Education Self-Care/Home Management Soft Tissue Mobilization Taping Therapeutic Exercises Modalities Cold Pack/Ice Massage Electric Stimulation Hot Packs Ultrasound Next Visit Focus/Plan Next Note Type Treatment Note Next Visit Plan Provide HEP, strengthening, modalities for pain.
--- NOTE | 2018-10-05 08:53 | PT.OTN ---
Current Diagnoses Pain in right knee (10/05/18) Pain in left knee (10/05/18) Pain in right ankle and joints of right foot (10/05/18) Pain in left ankle and joints of left foot (10/05/18) Low back pain (10/05/18) Physical Therapy Treatment Note PT-OP-A Visit Information Start: 09/29/18 08:55 Freq: Status: Active Protocol: Document 10/05/18 08:17 EA (Rec: 10/05/18 08:23 EA [id number]) Out-Patient Physical Therapy Visit Information Visit Information Visit Type Treatment Note Visit Start Time 07:30 Visit Stop Time 08:23 Total Visit Minutes 53 Visit Number 2 Number of CERAMIST Visits 0 PT-OP-B Current Condition Start: 09/29/18 08:55 Freq: Status: Active Protocol: Document 09/29/18 17:35 EA (Rec: 10/04/18 07:46 EA [id number]) Current Condition History of Current Condition Onset Date Chronic, ~ 5 years ago Current Complaints Both knees and ankle aching pain and hip joint LOM History of Current Condition Patient reports multiple years of choronic joint pain to both knees and ankle with no history of previous injury. She reports gradual onset which she feels both LE's swelling and pain is less upon waking up in the morning and gradually builds up late afternoon after work. She has been taking OTC pain meds to managed pain. She reports that symptoms are on and off. She mentioned that she has lost 20 lbs of BW through walking and being active all day with the combination of good but not excellenet diet. She reports that she wants to go back to previous water aerobics exercises, hoever has been bothering by cellulitis. 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 Prior Treatments and Tests NO formal PT or treament in the past Recent X-rays to B knees and ankle MRI to lumbar region 04/2018 Future Testing and Treatments Planned None reported Treatment Goals Patient/Caregiver Goals 1. Wants to navigate stairs with normal alternating steps ability 2. Be able to walk > 3 blocks with good speed 3. 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 Baseline Function- Recreation/Hobbies Walking daily Current Functional Impairments (Reported) Functional Limitations- ADL's Independent Functional Limitations- Mobility/Gait Limited to less than 2 blocks with very slow az and waddling gait Functional Limitations- Work/School 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 PT-OP-D Balance Start: 09/29/18 08:55 Freq: Status: Active Protocol: Document 09/29/18 17:30 EA (Rec: 09/30/18 08:10 EA [id number]) OP-PT Balance Assessment Sitting Balance Static Sitting Balance Ability Normal Sanchez Fall Scale Copyright Permission PT-OP-F Manual Assessment Start: 09/29/18 08:55 Freq: Status: Active Protocol: Document 09/29/18 17:30 EA (Rec: 09/30/18 08:10 EA [id number]) Manual Assessments Soft Tissue Assessment Soft Tissue Mobility Assessment Tightness to both calves, B quads, ITB, hip E-Rotators, hip flexors Joint Mobility Assessment Joint Mobility Assessment hypomobility to both TC joint PT-OP-G Mobility & Gait Start: 09/29/18 08:55 Freq: Status: Active Protocol: Document 09/29/18 17:30 EA (Rec: 09/30/18 08:10 EA [id number]) OP Gait Assessment Gait Gait Assistance Required: Independent Gait Deviations General Gait Pattern Decreased Stride Length Decreased Feet Clearance Wide Based Gait Comments Gait Comments Waddling gait with no push off , and wide base. Stair Climbing Evaluation Comments Stair Climbing Comments Step to with rails support PT-OP-J Posture/Palpation/Skin Start: 09/29/18 08:55 Freq: Status: Active Protocol: Document 09/29/18 17:30 EA (Rec: 09/30/18 08:10 EA [id number]) Palpation Assessment Location One Palpation Location Both lateral patellar facets with more in the left Palpation Findings Tenderness Palpation Details Grade 2/4 at left lateral knee and right upper gluteals and SI joint Skin Assessment Edema Assessment Bilateral Ankle Edema Type Non-Pitting Edema Degree 1+ Subjective Edema Description Tightness Comments Cellulitis to left leg Circumference Measurement 1 Location malleolus, both Measurement (Centimeters) 37 PT-OP-K Range of Motion Start: 09/29/18 08:55 Freq: Status: Active Protocol: Document 09/29/18 17:00 EA (Rec: 09/30/18 15:00 EA [id number]) Knee Goniometric Range of Motion Knee ROM Limitations Knee ROM Limitations Soft Tissue Tightness Pain Swelling Comments Both knee flexion-extension: 125 to 5 extension Ankle and Foot Goniometric Range of Motion Ankle and Foot Left Active Testing Position Sitting Dorsiflexion with Knee Flexed 5 Plantarflexion 40 Inversion 20 Eversion 10 Right Active Testing Position Sitting Dorsiflexion with Knee Flexed 5 Plantarflexion 40 Inversion 20 Eversion 10 Ankle and Foot ROM Limitations ROM Limitations Soft Tissue Tightness Muscle Weakness Pain PT-OP-L Special Tests Start: 09/29/18 08:55 Freq: Status: Active Protocol: Document 09/29/18 17:30 EA (Rec: 09/30/18 08:10 EA [id number]) Special Tests Knee Special Tests Edilson's Test Test Results + both Patellar Grind Test Test Results + both Varus- 25 Degrees Test Results - Valgus- 25 Degrees Test Results - Silvio's Sign Test Results + both PT-OP-M Strength Start: 09/29/18 08:55 Freq: Status: Active Protocol: Document 09/29/18 17:30 EA (Rec: 09/30/18 08:10 EA [id number]) Hip Strength Hip Manual Muscle Testing Right Flexion (L2) 4- Good- Extension (S1) 4- Good- Abduction 4- Good- Adduction 4- Good- External Rotation 4 Good Internal Rotation 4 Good Left Flexion (L2) 4- Good- Extension (S1) 4- Good- Abduction 4- Good- Adduction 4- Good- External Rotation 4 Good Internal Rotation 4 Good Knee Strength Knee Manual Muscle Testing Right Flexion (S2) 4 Good Extension (L3) 4- Good- Left Flexion (S2) 4+ Good+ Extension (L3) 5 Normal Ankle/Foot Strength Ankle and Foot Manual Muscle Testing Left Dorsiflexion (L4) 4+ Good+ Plantarflexion (S1) 4+ Good+ Inversion 4+ Good+ Eversion (S1) 4+ Good+ PT-OP-Q Treatments Start: 09/29/18 08:55 Freq: Status: Active Protocol: Document 10/05/18 08:17 EA (Rec: 10/05/18 08:23 EA [id number]) Cardio Equipment Recumbent Stepper (Sci-Fit) Duration (Minutes) 10 Resistance 2 Gym Equipment Cable Column (Body Solid) Hip Adduction Resistance 3 cords Reps/Time x 15 reps Hip Abduction Resistance 3cords Reps/Time x 15 reps Shuttle Recovery Unilateral Squats Resistance 2 cords Reps/Time x 20 reps Bilateral Squats Resistance 4 cords Reps/Time x 20 reps Therapeutic Exercises Supine Exercises 1 Supine Exercise Name Hamstrings, quads stretch Reps/Minutes x15SH x 2 reps Other Exercises 1 Other Exercise Name calves stretch: the DELIA Reps/Minutes x 15SH x 2 reps Self-Care/Home Management Treatment Education Patient Education [employer] Home Exercise Program Joint Protection Pain Management Posture Safety Other Education Safe wieght loss education provided. PT-OP-R Modalities Start: 09/29/18 08:55 Freq: Status: Active Protocol: Document 10/05/18 08:17 EA (Rec: 10/05/18 08:23 EA [id number]) Electric Stimulation Electric Stimulation Interferential Current (IFC) Body Location both quads Duration (Minutes) 15 Intensity 15 Combined With Heat/Cold Cold Pack PT-OP-T Assessment and Plan Start: 09/29/18 08:55 Freq: Status: Active Protocol: Document 10/05/18 08:17 EA (Rec: 10/05/18 08:23 EA [id number]) Physical Therapy Assessment Assessment Summary Assessment Tolerated treatment well. Understand safety and weight loss pre-cautions. Physical Therapy Plan Next Visit Focus/Plan Next Note Type Treatment Note Next Visit Plan Provide HEP, strengthening, modalities for pain.
--- NOTE | 2018-10-12 09:45 | PT.OTN ---
Current Diagnoses Pain in right knee (10/12/18) Pain in left knee (10/12/18) Pain in right ankle and joints of right foot (10/12/18) Pain in left ankle and joints of left foot (10/12/18) Low back pain (10/12/18) Physical Therapy Treatment Note PT-OP-A Visit Information Start: 09/29/18 08:55 Freq: Status: Active Protocol: Document 10/12/18 09:29 EA (Rec: 10/12/18 09:35 EA [id number]) Out-Patient Physical Therapy Visit Information Visit Information Visit Type Treatment Note Visit Start Time 07:30 Visit Stop Time 08:23 Total Visit Minutes 45 Visit Number 3 Number of HADOOP JAVA DEVELOPER Visits 0 PT-OP-B Current Condition Start: 09/29/18 08:55 Freq: Status: Active Protocol: Document 09/29/18 17:35 EA (Rec: 10/04/18 07:46 EA [id number]) Current Condition History of Current Condition Onset Date Chronic, ~ 5 years ago Current Complaints Both knees and ankle aching pain and hip joint LOM History of Current Condition Patient reports multiple years of choronic joint pain to both knees and ankle with no history of previous injury. She reports gradual onset which she feels both LE's swelling and pain is less upon waking up in the morning and gradually builds up late afternoon after work. She has been taking OTC pain meds to managed pain. She reports that symptoms are on and off. She mentioned that she has lost 20 lbs of BW through walking and being active all day with the combination of good but not excellenet diet. She reports that she wants to go back to previous water aerobics exercises, hoever has been bothering by cellulitis. 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 Prior Treatments and Tests NO formal PT or treament in the past Recent X-rays to B knees and ankle MRI to lumbar region 04/2018 Future Testing and Treatments Planned None reported Treatment Goals Patient/Caregiver Goals 1. Wants to navigate stairs with normal alternating steps ability 2. Be able to walk > 3 blocks with good speed 3. 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 Baseline Function- Recreation/Hobbies Walking daily Current Functional Impairments (Reported) Functional Limitations- ADL's Independent Functional Limitations- Mobility/Gait Limited to less than 2 blocks with very slow az and waddling gait Functional Limitations- Work/School 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 She reports consistent with eating regimen to loss more weight. Patient Reported Progress Worse PT-OP-D Balance Start: 09/29/18 08:55 Freq: Status: Active Protocol: Document 09/29/18 17:30 EA (Rec: 09/30/18 08:10 EA [id number]) OP-PT Balance Assessment Sitting Balance Static Sitting Balance Ability Normal Sanchez Fall Scale Copyright Permission PT-OP-F Manual Assessment Start: 09/29/18 08:55 Freq: Status: Active Protocol: Document 09/29/18 17:30 EA (Rec: 09/30/18 08:10 EA [id number]) Manual Assessments Soft Tissue Assessment Soft Tissue Mobility Assessment Tightness to both calves, B quads, ITB, hip E-Rotators, hip flexors Joint Mobility Assessment Joint Mobility Assessment hypomobility to both TC joint PT-OP-G Mobility & Gait Start: 09/29/18 08:55 Freq: Status: Active Protocol: Document 09/29/18 17:30 EA (Rec: 09/30/18 08:10 EA [id number]) OP Gait Assessment Gait Gait Assistance Required: Independent Gait Deviations General Gait Pattern Decreased Stride Length Decreased Feet Clearance Wide Based Gait Comments Gait Comments Waddling gait with no push off , and wide base. Stair Climbing Evaluation Comments Stair Climbing Comments Step to with rails support PT-OP-J Posture/Palpation/Skin Start: 09/29/18 08:55 Freq: Status: Active Protocol: Document 09/29/18 17:30 EA (Rec: 09/30/18 08:10 EA [id number]) Palpation Assessment Location One Palpation Location Both lateral patellar facets with more in the left Palpation Findings Tenderness Palpation Details Grade 2/4 at left lateral knee and right upper gluteals and SI joint Skin Assessment Edema Assessment Bilateral Ankle Edema Type Non-Pitting Edema Degree 1+ Subjective Edema Description Tightness Comments Cellulitis to left leg Circumference Measurement 1 Location malleolus, both Measurement (Centimeters) 37 PT-OP-K Range of Motion Start: 09/29/18 08:55 Freq: Status: Active Protocol: Document 09/29/18 17:00 EA (Rec: 09/30/18 15:00 EA [id number]) Knee Goniometric Range of Motion Knee ROM Limitations Knee ROM Limitations Soft Tissue Tightness Pain Swelling Comments Both knee flexion-extension: 125 to 5 extension Ankle and Foot Goniometric Range of Motion Ankle and Foot Left Active Testing Position Sitting Dorsiflexion with Knee Flexed 5 Plantarflexion 40 Inversion 20 Eversion 10 Right Active Testing Position Sitting Dorsiflexion with Knee Flexed 5 Plantarflexion 40 Inversion 20 Eversion 10 Ankle and Foot ROM Limitations ROM Limitations Soft Tissue Tightness Muscle Weakness Pain PT-OP-L Special Tests Start: 09/29/18 08:55 Freq: Status: Active Protocol: Document 09/29/18 17:30 EA (Rec: 09/30/18 08:10 EA [id number]) Special Tests Knee Special Tests Edilson's Test Test Results + both Patellar Grind Test Test Results + both Varus- 25 Degrees Test Results - Valgus- 25 Degrees Test Results - Silvio's Sign Test Results + both PT-OP-M Strength Start: 09/29/18 08:55 Freq: Status: Active Protocol: Document 09/29/18 17:30 EA (Rec: 09/30/18 08:10 EA [id number]) Hip Strength Hip Manual Muscle Testing Right Flexion (L2) 4- Good- Extension (S1) 4- Good- Abduction 4- Good- Adduction 4- Good- External Rotation 4 Good Internal Rotation 4 Good Left Flexion (L2) 4- Good- Extension (S1) 4- Good- Abduction 4- Good- Adduction 4- Good- External Rotation 4 Good Internal Rotation 4 Good Knee Strength Knee Manual Muscle Testing Right Flexion (S2) 4 Good Extension (L3) 4- Good- Left Flexion (S2) 4+ Good+ Extension (L3) 5 Normal Ankle/Foot Strength Ankle and Foot Manual Muscle Testing Left Dorsiflexion (L4) 4+ Good+ Plantarflexion (S1) 4+ Good+ Inversion 4+ Good+ Eversion (S1) 4+ Good+ PT-OP-Q Treatments Start: 09/29/18 08:55 Freq: Status: Active Protocol: Document 10/12/18 09:29 EA (Rec: 10/12/18 09:35 EA [id number]) Cardio Equipment Recumbent Stepper (Sci-Fit) Duration (Minutes) 15 Resistance 2 Other 10 mins earlier on her regular sched Gym Equipment Cable Column (Body Solid) Hip Adduction Resistance 4 cords Reps/Time x 15 reps x 2 Hip Abduction Resistance 4cords Reps/Time x 15 reps x 2 Shuttle Recovery Unilateral Squats Resistance 3.5 cords Reps/Time x 20 reps x 2 Bilateral Squats Resistance 6 cords Reps/Time 15 reps x 2 Therapeutic Exercises Supine Exercises 1 Supine Exercise Name Hamstrings, quads stretch Reps/Minutes x15SH x 2 reps Standing Exercises 1 Standing Exercise Name DB shoulder front/side and shoulder press Resistance 2# Reps/Minutes x 15 reps Other Exercises 2 Other Exercise Name T-ball wall squat Reps/Minutes x 10 reps Comments knee bent up to tolerable range 1 Other Exercise Name calves stretch: the DELIA Reps/Minutes x 15SH x 2 reps PT-OP-R Modalities Start: 09/29/18 08:55 Freq: Status: Active Protocol: Document 10/12/18 09:29 EA (Rec: 10/12/18 09:35 EA [id number]) Electric Stimulation Electric Stimulation Interferential Current (IFC) Body Location both quads Duration (Minutes) 15 Intensity 15 Combined With Heat/Cold Cold Pack PT-OP-T Assessment and Plan Start: 09/29/18 08:55 Freq: Status: Active Protocol: Document 10/12/18 09:29 EA (Rec: 10/12/18 09:35 EA [id number]) Physical Therapy Assessment Assessment Summary Assessment Pt shows improved exercises tolerance and both knee are feeling much improved except with wall squat full body weight which crepitus is pronounced. Advised patient to cont. increasing low impact activities. Physical Therapy Plan Next Visit Focus/Plan Next Note Type Treatment Note Next Visit Plan Provide HEP, strengthening, modalities for pain.
--- NOTE | 2018-10-28 09:38 | PT.OTN ---
Current Diagnoses Pain in right knee (10/28/18) Pain in left knee (10/28/18) Pain in right ankle and joints of right foot (10/28/18) Pain in left ankle and joints of left foot (10/28/18) Low back pain (10/28/18) Physical Therapy Treatment Note PT-OP-A Visit Information Start: 09/29/18 08:55 Freq: Status: Active Protocol: Document 10/28/18 09:11 EA (Rec: 10/28/18 09:34 EA [id number]) Out-Patient Physical Therapy Visit Information Visit Information Visit Type Treatment Note Visit Start Time 08:15 Visit Stop Time 09:00 Total Visit Minutes 45 Visit Number 4 PT-OP-B Current Condition Start: 09/29/18 08:55 Freq: Status: Active Protocol: Document 09/29/18 17:35 EA (Rec: 10/04/18 07:46 EA [id number]) Current Condition History of Current Condition Onset Date Chronic, ~ 5 years ago Current Complaints Both knees and ankle aching pain and hip joint LOM History of Current Condition Patient reports multiple years of choronic joint pain to both knees and ankle with no history of previous injury. She reports gradual onset which she feels both LE's swelling and pain is less upon waking up in the morning and gradually builds up late afternoon after work. She has been taking OTC pain meds to managed pain. She reports that symptoms are on and off. She mentioned that she has lost 20 lbs of BW through walking and being active all day with the combination of good but not excellenet diet. She reports that she wants to go back to previous water aerobics exercises, hoever has been bothering by cellulitis. 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 Prior Treatments and Tests NO formal PT or treament in the past Recent X-rays to B knees and ankle MRI to lumbar region 04/2018 Future Testing and Treatments Planned None reported Treatment Goals Patient/Caregiver Goals 1. Wants to navigate stairs with normal alternating steps ability 2. Be able to walk > 3 blocks with good speed 3. 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 Baseline Function- Recreation/Hobbies Walking daily Current Functional Impairments (Reported) Functional Limitations- ADL's Independent Functional Limitations- Mobility/Gait Limited to less than 2 blocks with very slow az and waddling gait Functional Limitations- Work/School 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 She reports consistent with guidelines of healthy weight loss. PT-OP-D Balance Start: 09/29/18 08:55 Freq: Status: Active Protocol: Document 09/29/18 17:30 EA (Rec: 09/30/18 08:10 EA [id number]) OP-PT Balance Assessment Sitting Balance Static Sitting Balance Ability Normal Sanchez Fall Scale Copyright Permission PT-OP-F Manual Assessment Start: 09/29/18 08:55 Freq: Status: Active Protocol: Document 09/29/18 17:30 EA (Rec: 09/30/18 08:10 EA [id number]) Manual Assessments Soft Tissue Assessment Soft Tissue Mobility Assessment Tightness to both calves, B quads, ITB, hip E-Rotators, hip flexors Joint Mobility Assessment Joint Mobility Assessment hypomobility to both TC joint PT-OP-G Mobility & Gait Start: 09/29/18 08:55 Freq: Status: Active Protocol: Document 09/29/18 17:30 EA (Rec: 09/30/18 08:10 EA [id number]) OP Gait Assessment Gait Gait Assistance Required: Independent Gait Deviations General Gait Pattern Decreased Stride Length, Decreased Feet Clearance,Wide Based Gait Comments Gait Comments Waddling gait with no push off , and wide base. Stair Climbing Evaluation Comments Stair Climbing Comments Step to with rails support PT-OP-J Posture/Palpation/Skin Start: 09/29/18 08:55 Freq: Status: Active Protocol: Document 09/29/18 17:30 EA (Rec: 09/30/18 08:10 EA [id number]) Palpation Assessment Location One Palpation Location Both lateral patellar facets with more in the left Palpation Findings Tenderness Palpation Details Grade 2/4 at left lateral knee and right upper gluteals and SI joint Skin Assessment Edema Assessment Bilateral Ankle Edema Type Non-Pitting Edema Degree 1+ Subjective Edema Description Tightness Comments Cellulitis to left leg Circumference Measurement 1 Location malleolus, both Measurement (Centimeters) 37 PT-OP-K Range of Motion Start: 09/29/18 08:55 Freq: Status: Active Protocol: Document 09/29/18 17:00 EA (Rec: 09/30/18 15:00 EA [id number]) Knee Goniometric Range of Motion Knee ROM Limitations Knee ROM Limitations Soft Tissue Tightness,Pain, Swelling Comments Both knee flexion-extension: 125 to 5 extension Ankle and Foot Goniometric Range of Motion Ankle and Foot Left Active Testing Position Sitting Dorsiflexion with Knee Flexed 5 Plantarflexion 40 Inversion 20 Eversion 10 Right Active Testing Position Sitting Dorsiflexion with Knee Flexed 5 Plantarflexion 40 Inversion 20 Eversion 10 Ankle and Foot ROM Limitations ROM Limitations Soft Tissue Tightness,Muscle Weakness,Pain PT-OP-L Special Tests Start: 09/29/18 08:55 Freq: Status: Active Protocol: Document 09/29/18 17:30 EA (Rec: 09/30/18 08:10 EA [id number]) Special Tests Knee Special Tests Edilson's Test Test Results + both Patellar Grind Test Test Results + both Varus- 25 Degrees Test Results - Valgus- 25 Degrees Test Results - Silvio's Sign Test Results + both PT-OP-M Strength Start: 09/29/18 08:55 Freq: Status: Active Protocol: Document 09/29/18 17:30 EA (Rec: 09/30/18 08:10 EA [id number]) Hip Strength Hip Manual Muscle Testing Right Flexion (L2) 4- Good- Extension (S1) 4- Good- Abduction 4- Good- Adduction 4- Good- External Rotation 4 Good Internal Rotation 4 Good Left Flexion (L2) 4- Good- Extension (S1) 4- Good- Abduction 4- Good- Adduction 4- Good- External Rotation 4 Good Internal Rotation 4 Good Knee Strength Knee Manual Muscle Testing Right Flexion (S2) 4 Good Extension (L3) 4- Good- Left Flexion (S2) 4+ Good+ Extension (L3) 5 Normal Ankle/Foot Strength Ankle and Foot Manual Muscle Testing Left Dorsiflexion (L4) 4+ Good+ Plantarflexion (S1) 4+ Good+ Inversion 4+ Good+ Eversion (S1) 4+ Good+ PT-OP-Q Treatments Start: 09/29/18 08:55 Freq: Status: Active Protocol: Document 10/28/18 09:11 EA (Rec: 10/28/18 09:34 EA [id number]) Gym Equipment Cable Column (Body Solid) Hip Adduction Resistance 4 cords Reps/Time x 15 reps x 2 Hip Abduction Resistance 4cords Reps/Time x 15 reps x 2 Shuttle Recovery Bilateral Heel Raises Resistance 2 cords Reps/Time x 15 reps x 2 Unilateral Squats Resistance 3.5 cords Reps/Time 15 reps Bilateral Squats Resistance 6 cords Reps/Time 15 reps x 1 Therapeutic Exercises Supine Exercises 2 Supine Exercise Name Ankle joint DF/EV/INV Resistance Lv1 Reps/Minutes 10 reps x 1 1 Supine Exercise Name Hamstrings, quads stretch Reps/Minutes x15SH x 2 reps Standing Exercises 1 Standing Exercise Name DB shoulder front/side and shoulder press Resistance 2# Reps/Minutes x 15 reps Other Exercises 1 Other Exercise Name calves stretch: the DELIA Reps/Minutes x 15SH x 2 reps Self-Care/Home Management Treatment Education Patient Education Home Exercise Program,Joint Protection Other Education re-discussed safe weight loss process. Discussed ankle ROM and stretchinng exercises PT-OP-R Modalities Start: 09/29/18 08:55 Freq: Status: Active Protocol: Document 10/28/18 09:11 EA (Rec: 10/28/18 09:34 EA [id number]) Hot Pack/Cold Pack Treatment Cold Pack Location both knee, right ankle Patient Position Supine Treatment Duration (minutes) 15 Patient Tolerance Good PT-OP-T Assessment and Plan Start: 09/29/18 08:55 Freq: Status: Active Protocol: Document 10/28/18 09:11 EA (Rec: 10/28/18 09:34 EA [id number]) Physical Therapy Assessment Assessment Summary Assessment Patient was very emotional after ankle resistance exercises; states she needs to focus on strengthening her ankles. Patient understands HEP and agreed to comply. She is fully motivated to loss weight after discussing the benefit of losing weight to her current conditions. Patient would cont. to benefit with skilled PT focusing on the whole approach rather than just the pain to both knees and ankle. Physical Therapy Plan Next Visit Focus/Plan Next Note Type Treatment Note Next Visit Plan Review HEP, strengthening, continue education on safe weight loss goals.
--- NOTE | 2018-11-07 19:53 | PT.OTN ---
Current Diagnoses Pain in right knee (11/03/18) Pain in left knee (11/03/18) Pain in right ankle and joints of right foot (11/03/18) Pain in left ankle and joints of left foot (11/03/18) Low back pain (11/03/18) Physical Therapy Treatment Note PT-OP-A Visit Information Start: 09/29/18 08:55 Freq: Status: Active Protocol: Document 11/03/18 10:00 [facility] (Rec: 11/07/18 19:53 [facility] [email or web address]) Out-Patient Physical Therapy Visit Information Visit Information Visit Type Treatment Note Visit Start Time 10:00 Visit Stop Time 10:45 Total Visit Minutes 45 Visit Number 5 PT-OP-B Current Condition Start: 09/29/18 08:55 Freq: Status: Active Protocol: Document 09/29/18 17:35 EA (Rec: 10/04/18 07:46 EA [id number]) Current Condition History of Current Condition Onset Date Chronic, ~ 5 years ago Current Complaints Both knees and ankle aching pain and hip joint LOM History of Current Condition Patient reports multiple years of choronic joint pain to both knees and ankle with no history of previous injury. She reports gradual onset which she feels both LE's swelling and pain is less upon waking up in the morning and gradually builds up late afternoon after work. She has been taking OTC pain meds to managed pain. She reports that symptoms are on and off. She mentioned that she has lost 20 lbs of BW through walking and being active all day with the combination of good but not excellenet diet. She reports that she wants to go back to previous water aerobics exercises, hoever has been bothering by cellulitis. 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 Prior Treatments and Tests NO formal PT or treament in the past Recent X-rays to B knees and ankle MRI to lumbar region 04/2018 Future Testing and Treatments Planned None reported Treatment Goals Patient/Caregiver Goals 1. Wants to navigate stairs with normal alternating steps ability 2. Be able to walk > 3 blocks with good speed 3. 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 Baseline Function- Recreation/Hobbies Walking daily Current Functional Impairments (Reported) Functional Limitations- ADL's Independent Functional Limitations- Mobility/Gait Limited to less than 2 blocks with very slow az and waddling gait Functional Limitations- Work/School 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 She is continuing to try to lose weight. She finds it difficult to fit her exercises into her busy schedule PT-OP-D Balance Start: 09/29/18 08:55 Freq: Status: Active Protocol: Document 09/29/18 17:30 EA (Rec: 09/30/18 08:10 EA [id number]) OP-PT Balance Assessment Sitting Balance Static Sitting Balance Ability Normal Sanchez Fall Scale Copyright Permission PT-OP-F Manual Assessment Start: 09/29/18 08:55 Freq: Status: Active Protocol: Document 09/29/18 17:30 EA (Rec: 09/30/18 08:10 EA [id number]) Manual Assessments Soft Tissue Assessment Soft Tissue Mobility Assessment Tightness to both calves, B quads, ITB, hip E-Rotators, hip flexors Joint Mobility Assessment Joint Mobility Assessment hypomobility to both TC joint PT-OP-G Mobility & Gait Start: 09/29/18 08:55 Freq: Status: Active Protocol: Document 09/29/18 17:30 EA (Rec: 09/30/18 08:10 EA [id number]) OP Gait Assessment Gait Gait Assistance Required: Independent Gait Deviations General Gait Pattern Decreased Stride Length, Decreased Feet Clearance,Wide Based Gait Comments Gait Comments Waddling gait with no push off , and wide base. Stair Climbing Evaluation Comments Stair Climbing Comments Step to with rails support PT-OP-J Posture/Palpation/Skin Start: 09/29/18 08:55 Freq: Status: Active Protocol: Document 09/29/18 17:30 EA (Rec: 09/30/18 08:10 EA [id number]) Palpation Assessment Location One Palpation Location Both lateral patellar facets with more in the left Palpation Findings Tenderness Palpation Details Grade 2/4 at left lateral knee and right upper gluteals and SI joint Skin Assessment Edema Assessment Bilateral Ankle Edema Type Non-Pitting Edema Degree 1+ Subjective Edema Description Tightness Comments Cellulitis to left leg Circumference Measurement 1 Location malleolus, both Measurement (Centimeters) 37 PT-OP-K Range of Motion Start: 09/29/18 08:55 Freq: Status: Active Protocol: Document 09/29/18 17:00 EA (Rec: 09/30/18 15:00 EA [id number]) Knee Goniometric Range of Motion Knee ROM Limitations Knee ROM Limitations Soft Tissue Tightness,Pain, Swelling Comments Both knee flexion-extension: 125 to 5 extension Ankle and Foot Goniometric Range of Motion Ankle and Foot Left Active Testing Position Sitting Dorsiflexion with Knee Flexed 5 Plantarflexion 40 Inversion 20 Eversion 10 Right Active Testing Position Sitting Dorsiflexion with Knee Flexed 5 Plantarflexion 40 Inversion 20 Eversion 10 Ankle and Foot ROM Limitations ROM Limitations Soft Tissue Tightness,Muscle Weakness,Pain PT-OP-L Special Tests Start: 09/29/18 08:55 Freq: Status: Active Protocol: Document 09/29/18 17:30 EA (Rec: 09/30/18 08:10 EA [id number]) Special Tests Knee Special Tests Edilson's Test Test Results + both Patellar Grind Test Test Results + both Varus- 25 Degrees Test Results - Valgus- 25 Degrees Test Results - Silvio's Sign Test Results + both PT-OP-M Strength Start: 09/29/18 08:55 Freq: Status: Active Protocol: Document 09/29/18 17:30 EA (Rec: 09/30/18 08:10 EA [id number]) Hip Strength Hip Manual Muscle Testing Right Flexion (L2) 4- Good- Extension (S1) 4- Good- Abduction 4- Good- Adduction 4- Good- External Rotation 4 Good Internal Rotation 4 Good Left Flexion (L2) 4- Good- Extension (S1) 4- Good- Abduction 4- Good- Adduction 4- Good- External Rotation 4 Good Internal Rotation 4 Good Knee Strength Knee Manual Muscle Testing Right Flexion (S2) 4 Good Extension (L3) 4- Good- Left Flexion (S2) 4+ Good+ Extension (L3) 5 Normal Ankle/Foot Strength Ankle and Foot Manual Muscle Testing Left Dorsiflexion (L4) 4+ Good+ Plantarflexion (S1) 4+ Good+ Inversion 4+ Good+ Eversion (S1) 4+ Good+ PT-OP-Q Treatments Start: 09/29/18 08:55 Freq: Status: Active Protocol: Document 11/03/18 10:00 [facility] (Rec: 11/07/18 19:53 [facility] [id number]) Cardio Equipment Recumbent Stepper (Sci-Fit) Duration (Minutes) 6 Resistance 2 Gym Equipment Cable Column (Body Solid) Hip Adduction Resistance 4 cords Reps/Time x 15 reps x 2 Hip Abduction Resistance 4cords Reps/Time x 15 reps x 2 Shuttle Recovery Bilateral Heel Raises Resistance 2 cords Reps/Time x 15 reps x 2 Unilateral Squats Resistance 3.5 cords Reps/Time 15 reps Bilateral Squats Resistance 6 cords Reps/Time 15 reps x 1 Therapeutic Exercises Supine Exercises 2 Supine Exercise Name Ankle joint DF/EV/INV Resistance Lv1 Reps/Minutes 10 reps x 1 1 Supine Exercise Name Hamstrings, quads stretch Reps/Minutes x15SH x 2 reps Other Exercises 1 Other Exercise Name calves stretch: the DELIA Reps/Minutes x 15SH x 2 reps PT-OP-R Modalities Start: 09/29/18 08:55 Freq: Status: Active Protocol: Document 11/03/18 10:00 [facility] (Rec: 11/07/18 19:53 [facility] [id number]) Electric Stimulation Electric Stimulation Interferential Current (IFC) Body Location IFC right ankle with ICE Comments ice to B knees PT-OP-T Assessment and Plan Start: 09/29/18 08:55 Freq: Status: Active Protocol: Document 11/03/18 10:00 [facility] (Rec: 11/07/18 19:53 [facility] [email or web address]) Physical Therapy Assessment Assessment Summary Assessment good tolerance today for ther ex. 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 Physical Therapy Plan Frequency and Duration Frequency of Treatment 2x/Week Duration of Treatment 8 wks Plan of Care Start Date 09/29/18 Plan of Care End Date 11/24/18 Therapeutic Interventions Therapeutic Interventions Gait Training,Home Exercise Program,Joint Mobilizations, Lymphedema Management,Manual Therapy,Patient/Caregiver Education,Self-Care/Home Management,Soft Tissue Mobilization,Taping, Therapeutic Exercises Next Visit Focus/Plan Next Note Type Treatment Note Next Visit Plan continue working with Mirela on her home program and how to incorporate exercises into her busy life
--- NOTE | 2018-11-19 08:57 | PT.OTN ---
Current Diagnoses Pain in right knee (11/19/18) Pain in left knee (11/19/18) Pain in right ankle and joints of right foot (11/19/18) Pain in left ankle and joints of left foot (11/19/18) Low back pain (11/19/18) Physical Therapy Treatment Note PT-OP-A Visit Information Start: 09/29/18 08:55 Freq: Status: Active Protocol: Document 11/19/18 08:16 LRN (Rec: 11/19/18 08:55 LRN [id number]) Out-Patient Physical Therapy Visit Information Visit Information Visit Type Treatment Note Visit Start Time 08:17 Visit Stop Time 08:56 Total Visit Minutes 39 Visit Number 6 PT-OP-B Current Condition Start: 09/29/18 08:55 Freq: Status: Active Protocol: Document 09/29/18 17:35 EA (Rec: 10/04/18 07:46 EA [id number]) Current Condition History of Current Condition Onset Date Chronic, ~ 5 years ago Current Complaints Both knees and ankle aching pain and hip joint LOM History of Current Condition Patient reports multiple years of choronic joint pain to both knees and ankle with no history of previous injury. She reports gradual onset which she feels both LE's swelling and pain is less upon waking up in the morning and gradually builds up late afternoon after work. She has been taking OTC pain meds to managed pain. She reports that symptoms are on and off. She mentioned that she has lost 20 lbs of BW through walking and being active all day with the combination of good but not excellenet diet. She reports that she wants to go back to previous water aerobics exercises, hoever has been bothering by cellulitis. 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 Prior Treatments and Tests NO formal PT or treament in the past Recent X-rays to B knees and ankle MRI to lumbar region 04/2018 Future Testing and Treatments Planned None reported Treatment Goals Patient/Caregiver Goals 1. Wants to navigate stairs with normal alternating steps ability 2. Be able to walk > 3 blocks with good speed 3. 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 Baseline Function- Recreation/Hobbies Walking daily Current Functional Impairments (Reported) Functional Limitations- ADL's Independent Functional Limitations- Mobility/Gait Limited to less than 2 blocks with very slow az and waddling gait Functional Limitations- Work/School 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 R knee hurts worse than L side. Took Advil this morning. Has lost 15# since start of therapy. Weight today 274#. Able to amb 2nd part of 1st set of stairs with alternating gait, but can't do 1st and 1/2 of 1st part of stairs and 2nd set of stairs (more narrow) with reciprocal gait. Patient Reported Progress Improving PT-OP-D Balance Start: 09/29/18 08:55 Freq: Status: Active Protocol: Document 09/29/18 17:30 EA (Rec: 09/30/18 08:10 EA [id number]) OP-PT Balance Assessment Sitting Balance Static Sitting Balance Ability Normal Sanchez Fall Scale Copyright Permission PT-OP-F Manual Assessment Start: 09/29/18 08:55 Freq: Status: Active Protocol: Document 09/29/18 17:30 EA (Rec: 09/30/18 08:10 EA [id number]) Manual Assessments Soft Tissue Assessment Soft Tissue Mobility Assessment Tightness to both calves, B quads, ITB, hip E-Rotators, hip flexors Joint Mobility Assessment Joint Mobility Assessment hypomobility to both TC joint PT-OP-G Mobility & Gait Start: 09/29/18 08:55 Freq: Status: Active Protocol: Document 09/29/18 17:30 EA (Rec: 09/30/18 08:10 EA [id number]) OP Gait Assessment Gait Gait Assistance Required: Independent Gait Deviations General Gait Pattern Decreased Stride Length, Decreased Feet Clearance,Wide Based Gait Comments Gait Comments Waddling gait with no push off , and wide base. Stair Climbing Evaluation Comments Stair Climbing Comments Step to with rails support PT-OP-J Posture/Palpation/Skin Start: 09/29/18 08:55 Freq: Status: Active Protocol: Document 09/29/18 17:30 EA (Rec: 09/30/18 08:10 EA [id number]) Palpation Assessment Location One Palpation Location Both lateral patellar facets with more in the left Palpation Findings Tenderness Palpation Details Grade 2/4 at left lateral knee and right upper gluteals and SI joint Skin Assessment Edema Assessment Bilateral Ankle Edema Type Non-Pitting Edema Degree 1+ Subjective Edema Description Tightness Comments Cellulitis to left leg Circumference Measurement 1 Location malleolus, both Measurement (Centimeters) 37 PT-OP-K Range of Motion Start: 09/29/18 08:55 Freq: Status: Active Protocol: Document 09/29/18 17:00 EA (Rec: 09/30/18 15:00 EA [id number]) Knee Goniometric Range of Motion Knee ROM Limitations Knee ROM Limitations Soft Tissue Tightness,Pain, Swelling Comments Both knee flexion-extension: 125 to 5 extension Ankle and Foot Goniometric Range of Motion Ankle and Foot Left Active Testing Position Sitting Dorsiflexion with Knee Flexed 5 Plantarflexion 40 Inversion 20 Eversion 10 Right Active Testing Position Sitting Dorsiflexion with Knee Flexed 5 Plantarflexion 40 Inversion 20 Eversion 10 Ankle and Foot ROM Limitations ROM Limitations Soft Tissue Tightness,Muscle Weakness,Pain PT-OP-L Special Tests Start: 09/29/18 08:55 Freq: Status: Active Protocol: Document 09/29/18 17:30 EA (Rec: 09/30/18 08:10 EA [id number]) Special Tests Knee Special Tests Edilson's Test Test Results + both Patellar Grind Test Test Results + both Varus- 25 Degrees Test Results - Valgus- 25 Degrees Test Results - Silvio's Sign Test Results + both PT-OP-M Strength Start: 09/29/18 08:55 Freq: Status: Active Protocol: Document 09/29/18 17:30 EA (Rec: 09/30/18 08:10 EA [id number]) Hip Strength Hip Manual Muscle Testing Right Flexion (L2) 4- Good- Extension (S1) 4- Good- Abduction 4- Good- Adduction 4- Good- External Rotation 4 Good Internal Rotation 4 Good Left Flexion (L2) 4- Good- Extension (S1) 4- Good- Abduction 4- Good- Adduction 4- Good- External Rotation 4 Good Internal Rotation 4 Good Knee Strength Knee Manual Muscle Testing Right Flexion (S2) 4 Good Extension (L3) 4- Good- Left Flexion (S2) 4+ Good+ Extension (L3) 5 Normal Ankle/Foot Strength Ankle and Foot Manual Muscle Testing Left Dorsiflexion (L4) 4+ Good+ Plantarflexion (S1) 4+ Good+ Inversion 4+ Good+ Eversion (S1) 4+ Good+ PT-OP-Q Treatments Start: 09/29/18 08:55 Freq: Status: Active Protocol: Document 11/19/18 08:16 LRN (Rec: 11/19/18 08:55 LRN [id number]) Cardio Equipment Recumbent Stepper (Sci-Fit) Duration (Minutes) 7 Resistance 2 Seat Position 11 Gym Equipment Cable Column (Body Solid) Hip Adduction Resistance 4 cords Reps/Time x 15 reps x 3 Hip Abduction Resistance 4cords Reps/Time x 15 reps x 3 Therapeutic Exercises Other Exercises Heel Raises Other Exercise Name Toes at 10, 12, 2, & ending 10 O-Clock Ankle DF on DELIA Other Exercise Name Ankle DF Equipment Used DELIA, Stair railing Reps/Minutes 15x, 5x 2 Other Exercise Name T-ball wall squat 1 Other Exercise Name calves stretch: the DELIA Equipment Used DELIA Reps/Minutes 60 sec PT-OP-R Modalities Start: 09/29/18 08:55 Freq: Status: Active Protocol: Document 11/03/18 10:00 [facility] (Rec: 11/07/18 19:53 AMH [email or web address]) Electric Stimulation Electric Stimulation Interferential Current (IFC) Body Location IFC right ankle with ICE Comments ice to B knees PT-OP-T Assessment and Plan Start: 09/29/18 08:55 Freq: Status: Active Protocol: Document 11/19/18 08:16 LRN (Rec: 11/19/18 08:55 LRN [id number]) Physical Therapy Assessment Assessment Summary Assessment Good tolerance to increased ex reps and new standing ankle exercises. Pt may need handouts for standing ex's next visit. Physical Therapy Plan Frequency and Duration Frequency of Treatment 2x/Week Duration of Treatment 8 wks Plan of Care Start Date 09/29/18 Plan of Care End Date 11/24/18 Next Visit Focus/Plan Next Note Type Treatment Note Next Visit Plan Review gastroc stretch f/b active ankle DF & 3 position PF ex. Consider adding TM to next visit. Continue working with Mirela on her home program and how to incorporate exercises into her busy life.
--- NOTE | 2018-11-29 09:19 | PT.OTN ---
Current Diagnoses Pain in right knee (11/24/18) Pain in left knee (11/24/18) Pain in right ankle and joints of right foot (11/24/18) Pain in left ankle and joints of left foot (11/24/18) Low back pain (11/24/18) Physical Therapy Treatment Note PT-OP-A Visit Information Start: 09/29/18 08:55 Freq: Status: Active Protocol: Document 11/24/18 10:45 AMH (Rec: 11/29/18 09:18 [facility] [email or web address]) Out-Patient Physical Therapy Visit Information Visit Information Visit Type Progress Note Visit Start Time 10:45 Visit Stop Time 11:30 Total Visit Minutes 45 Visit Number 7 PT-OP-B Current Condition Start: 09/29/18 08:55 Freq: Status: Active Protocol: Document 09/29/18 17:35 EA (Rec: 10/04/18 07:46 EA [id number]) Current Condition History of Current Condition Onset Date Chronic, ~ 5 years ago Current Complaints Both knees and ankle aching pain and hip joint LOM History of Current Condition Patient reports multiple years of choronic joint pain to both knees and ankle with no history of previous injury. She reports gradual onset which she feels both LE's swelling and pain is less upon waking up in the morning and gradually builds up late afternoon after work. She has been taking OTC pain meds to managed pain. She reports that symptoms are on and off. She mentioned that she has lost 20 lbs of BW through walking and being active all day with the combination of good but not excellenet diet. She reports that she wants to go back to previous water aerobics exercises, hoever has been bothering by cellulitis. 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 Prior Treatments and Tests NO formal PT or treament in the past Recent X-rays to B knees and ankle MRI to lumbar region 04/2018 Future Testing and Treatments Planned None reported Treatment Goals Patient/Caregiver Goals 1. Wants to navigate stairs with normal alternating steps ability 2. Be able to walk > 3 blocks with good speed 3. 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 Baseline Function- Recreation/Hobbies Walking daily Current Functional Impairments (Reported) Functional Limitations- ADL's Independent Functional Limitations- Mobility/Gait Limited to less than 2 blocks with very slow az and waddling gait Functional Limitations- Work/School 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 due to pain on both knees and ankle Functional Limitations- Recreation/ Unable to walk more than 3 Hobbies blocks Personal Factors Other Personal Factors That May Effect Left leg cellulitis with Therapy/Recovery active treatment, Controlled HTN, Obesity PT-OP-C Subjective Start: 09/29/18 08:55 Freq: Status: Active Protocol: Document 11/24/18 10:45 AMH (Rec: 11/29/18 09:18 AM[facility] [email or web address]) OP-PT Subjective Patient Comments Patient Comments Pt reports she is feeling a little stronger and able to do stairs a little easier now PT-OP-D Balance Start: 09/29/18 08:55 Freq: Status: Active Protocol: Document 09/29/18 17:30 EA (Rec: 09/30/18 08:10 EA [id number]) OP-PT Balance Assessment Sitting Balance Static Sitting Balance Ability Normal Sanchez Fall Scale Copyright Permission PT-OP-F Manual Assessment Start: 09/29/18 08:55 Freq: Status: Active Protocol: Document 09/29/18 17:30 EA (Rec: 09/30/18 08:10 EA [id number]) Manual Assessments Soft Tissue Assessment Soft Tissue Mobility Assessment Tightness to both calves, B quads, ITB, hip E-Rotators, hip flexors Joint Mobility Assessment Joint Mobility Assessment hypomobility to both TC joint PT-OP-G Mobility & Gait Start: 09/29/18 08:55 Freq: Status: Active Protocol: Document 09/29/18 17:30 EA (Rec: 09/30/18 08:10 EA [id number]) OP Gait Assessment Gait Gait Assistance Required: Independent Gait Deviations General Gait Pattern Decreased Stride Length, Decreased Feet Clearance,Wide Based Gait Comments Gait Comments Waddling gait with no push off , and wide base. Stair Climbing Evaluation Comments Stair Climbing Comments Step to with rails support PT-OP-J Posture/Palpation/Skin Start: 09/29/18 08:55 Freq: Status: Active Protocol: Document 09/29/18 17:30 EA (Rec: 09/30/18 08:10 EA [id number]) Palpation Assessment Location One Palpation Location Both lateral patellar facets with more in the left Palpation Findings Tenderness Palpation Details Grade 2/4 at left lateral knee and right upper gluteals and SI joint Skin Assessment Edema Assessment Bilateral Ankle Edema Type Non-Pitting Edema Degree 1+ Subjective Edema Description Tightness Comments Cellulitis to left leg Circumference Measurement 1 Location malleolus, both Measurement (Centimeters) 37 PT-OP-K Range of Motion Start: 09/29/18 08:55 Freq: Status: Active Protocol: Document 09/29/18 17:00 EA (Rec: 09/30/18 15:00 EA [id number]) Knee Goniometric Range of Motion Knee ROM Limitations Knee ROM Limitations Soft Tissue Tightness,Pain, Swelling Comments Both knee flexion-extension: 125 to 5 extension Ankle and Foot Goniometric Range of Motion Ankle and Foot Left Active Testing Position Sitting Dorsiflexion with Knee Flexed 5 Plantarflexion 40 Inversion 20 Eversion 10 Right Active Testing Position Sitting Dorsiflexion with Knee Flexed 5 Plantarflexion 40 Inversion 20 Eversion 10 Ankle and Foot ROM Limitations ROM Limitations Soft Tissue Tightness,Muscle Weakness,Pain PT-OP-L Special Tests Start: 09/29/18 08:55 Freq: Status: Active Protocol: Document 09/29/18 17:30 EA (Rec: 09/30/18 08:10 EA [id number]) Special Tests Knee Special Tests Edilson's Test Test Results + both Patellar Grind Test Test Results + both Varus- 25 Degrees Test Results - Valgus- 25 Degrees Test Results - Silvio's Sign Test Results + both PT-OP-M Strength Start: 09/29/18 08:55 Freq: Status: Active Protocol: Document 09/29/18 17:30 EA (Rec: 09/30/18 08:10 EA [id number]) Hip Strength Hip Manual Muscle Testing Right Flexion (L2) 4- Good- Extension (S1) 4- Good- Abduction 4- Good- Adduction 4- Good- External Rotation 4 Good Internal Rotation 4 Good Left Flexion (L2) 4- Good- Extension (S1) 4- Good- Abduction 4- Good- Adduction 4- Good- External Rotation 4 Good Internal Rotation 4 Good Knee Strength Knee Manual Muscle Testing Right Flexion (S2) 4 Good Extension (L3) 4- Good- Left Flexion (S2) 4+ Good+ Extension (L3) 5 Normal Ankle/Foot Strength Ankle and Foot Manual Muscle Testing Left Dorsiflexion (L4) 4+ Good+ Plantarflexion (S1) 4+ Good+ Inversion 4+ Good+ Eversion (S1) 4+ Good+ PT-OP-Q Treatments Start: 09/29/18 08:55 Freq: Status: Active Protocol: Document 11/24/18 10:45 AMH (Rec: 11/29/18 09:18 [facility] [email or web address]) Cardio Equipment Recumbent Stepper (Sci-Fit) Duration (Minutes) 7 Resistance 2 Seat Position 11 Gym Equipment Cable Column (Body Solid) Hip Adduction Resistance 4 cords Reps/Time x 15 reps x 3 Hip Abduction Resistance 4cords Reps/Time x 15 reps x 3 Shuttle Recovery Bilateral Heel Raises Resistance 2 cords Reps/Time x 15 reps x 2 Unilateral Squats Resistance 3.5 cords Reps/Time 15 reps Bilateral Squats Resistance 6 cords Reps/Time 15 reps x 1 Therapeutic Exercises Other Exercises 4 Other Exercise Name standing marches and hip abduction Reps/Minutes 2 x 10 reps 3 Other Exercise Name standing squats sit-stand Reps/Minutes 2 x 10 Heel Raises Other Exercise Name Toes at 10, 12, 2, & ending 10 O-Clock Ankle DF on DELIA Other Exercise Name Ankle DF Equipment Used DELIA, Stair railing Reps/Minutes 15x, 5x 1 Other Exercise Name calves stretch: the DELIA Equipment Used DELIA Reps/Minutes 60 sec PT-OP-R Modalities Start: 09/29/18 08:55 Freq: Status: Active Protocol: Document 11/24/18 10:45 AMH (Rec: 11/29/18 09:19 [facility] [email or web address]) Electric Stimulation Electric Stimulation Interferential Current (IFC) Body Location IFC right ankle with ICE Comments ice to B knees PT-OP-T Assessment and Plan Start: 09/29/18 08:55 Freq: Status: Active Protocol: Document 11/24/18 10:45 AMH (Rec: 11/29/18 09:18 [facility] [email or web address]) Physical Therapy Assessment Goals Four Impairment Step to gait on regular stairs Plaster Mixer Goal (LTG) Patient will use her apartment stairs with alternating feet with no increase of symptoms. GOOD PROGRESS Three Impairment Impaired distance amb Plaster Mixer Goal (LTG) Patient will amb more than a mile without difficulty SOME PROGRESS LTG Duration 5 wks Two Impairment LEFS scoer 40/80 [facility] Goal (LTG) LEFS score of more than 50/80 to enhance quality of life LTG Duration 5 wks One Impairment No HEP In place Plaster Mixer Goal (LTG) Patient will exhibit independent HEP GOOD PROGRESS BUT NEEDS REMINDERS OF HOME EXERCISES Assessment Summary Assessment Mirela is improving tolerance for ex, able to do standing sit-stand today without pain. She is noting that stairs are easier to do now and she is starting to incorporate her exercises into her routine. Pt given a handout of all of her home exercise today. I worked with her on standing exercises that she can do at work. She has 2 visits left in PT and will then be discharged to a [facility] Physical Therapy Plan Frequency and Duration Frequency of Treatment 2x/Week Duration of Treatment 8 wks Plan of Care Start Date 11/24/18 Plan of Care End Date 01/24/19 Therapeutic Interventions Therapeutic Interventions Gait Training,Home Exercise Program,Joint Mobilizations, Lymphedema Management,Manual Therapy,Patient/Caregiver Education,Self-Care/Home Management,Soft Tissue Mobilization,Taping, Therapeutic Exercises Next Visit Focus/Plan Next Note Type Treatment Note Next Visit Plan Continue to emphasize HEP with these last 2 visits. Incorporate exercises that Mirela can do standing at work.
--- NOTE | 2018-11-29 09:19 | PT.OPPOC ---
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 GOOD PROGRESS Three Impairment Impaired distance amb Customer Relations Advisor Goal (LTG) Patient will amb more than a mile without difficulty SOME PROGRESS LTG Duration 5 wks Two Impairment LEFS scoer 40/80 Customer Relations Advisor Goal (LTG) LEFS score of more than 50/80 to enhance quality of life LTG Duration 5 wks One Impairment No HEP In place Usp Goal (LTG) Patient will exhibit independent HEP GOOD PROGRESS BUT NEEDS REMINDERS OF HOME EXERCISES Assessment Summary Assessment Mirela is improving tolerance for ex, able to do standing sit-stand today without pain. She is noting that stairs are easier to do now and she is starting to incorporate her exercises into her routine. Pt given a handout of all of her home exercise today. I worked with her on standing exercises that she can do at work. She has 2 visits left in PT and will then be discharged to a [facility] Physical Therapy Plan Frequency and Duration Frequency of Treatment 2x/Week Duration of Treatment 8 wks Plan of Care Start Date 11/24/18 Plan of Care End Date 01/24/19 Therapeutic Interventions Therapeutic Interventions Gait Training,Home Exercise Program,Joint Mobilizations, Lymphedema Management,Manual Therapy,Patient/Caregiver Education,Self-Care/Home Management,Soft Tissue Mobilization,Taping, Therapeutic Exercises Next Visit Focus/Plan Next Note Type Treatment Note Next Visit Plan Continue to emphasize HEP with these last 2 visits. Incorporate exercises that Mirela can do standing at work. Plan of Care Dates Plan of Care Start Date 11/24/18 Plan of Care End Date 01/24/19
--- NOTE | 2018-12-02 14:47 | PT.OTN ---
Current Diagnoses Pain in right knee (12/02/18) Pain in left knee (12/02/18) Pain in right ankle and joints of right foot (12/02/18) Pain in left ankle and joints of left foot (12/02/18) Low back pain (12/02/18) Physical Therapy Treatment Note PT-OP-A Visit Information Start: 09/29/18 08:55 Freq: Status: Active Protocol: Document 12/02/18 08:15 LRN (Rec: 12/02/18 09:03 LRN [id number]) Out-Patient Physical Therapy Visit Information Visit Information Visit Type Progress Note Visit Start Time 08:15 Visit Stop Time 09:07 Total Visit Minutes 52 Visit Number 8 Number of HUNTING AND FISHING GUIDE Visits 0 Evaluation Information Evaluation Date 09/29/18 Precautions Precautions Left leg cellulitis PT-OP-B Current Condition Start: 09/29/18 08:55 Freq: Status: Active Protocol: Document 09/29/18 17:35 EA (Rec: 10/04/18 07:46 EA [id number]) Current Condition History of Current Condition Onset Date Chronic, ~ 5 years ago Current Complaints Both knees and ankle aching pain and hip joint LOM History of Current Condition Patient reports multiple years of choronic joint pain to both knees and ankle with no history of previous injury. She reports gradual onset which she feels both LE's swelling and pain is less upon waking up in the morning and gradually builds up late afternoon after work. She has been taking OTC pain meds to managed pain. She reports that symptoms are on and off. She mentioned that she has lost 20 lbs of BW through walking and being active all day with the combination of good but not excellenet diet. She reports that she wants to go back to previous water aerobics exercises, hoever has been bothering by cellulitis. 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 Prior Treatments and Tests NO formal PT or treament in the past Recent X-rays to B knees and ankle MRI to lumbar region 04/2018 Future Testing and Treatments Planned None reported Treatment Goals Patient/Caregiver Goals 1. Wants to navigate stairs with normal alternating steps ability 2. Be able to walk > 3 blocks with good speed 3. 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 Baseline Function- Recreation/Hobbies Walking daily Current Functional Impairments (Reported) Functional Limitations- ADL's Independent Functional Limitations- Mobility/Gait Limited to less than 2 blocks with very slow az and waddling gait Functional Limitations- Work/School 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 Able to walk 50% alternate legs on stairs at home as long as she has a railing & more often that used to can walk without a limp. Part of a day now vs a couple hours. Patient Reported Progress Improving PT-OP-D Balance Start: 09/29/18 08:55 Freq: Status: Active Protocol: Document 09/29/18 17:30 EA (Rec: 09/30/18 08:10 EA [id number]) OP-PT Balance Assessment Sitting Balance Static Sitting Balance Ability Normal Sanchez Fall Scale Copyright Permission PT-OP-F Manual Assessment Start: 09/29/18 08:55 Freq: Status: Active Protocol: Document 09/29/18 17:30 EA (Rec: 09/30/18 08:10 EA [id number]) Manual Assessments Soft Tissue Assessment Soft Tissue Mobility Assessment Tightness to both calves, B quads, ITB, hip E-Rotators, hip flexors Joint Mobility Assessment Joint Mobility Assessment hypomobility to both TC joint PT-OP-G Mobility & Gait Start: 09/29/18 08:55 Freq: Status: Active Protocol: Document 09/29/18 17:30 EA (Rec: 09/30/18 08:10 EA [id number]) OP Gait Assessment Gait Gait Assistance Required: Independent Gait Deviations General Gait Pattern Decreased Stride Length, Decreased Feet Clearance,Wide Based Gait Comments Gait Comments Waddling gait with no push off , and wide base. Stair Climbing Evaluation Comments Stair Climbing Comments Step to with rails support PT-OP-J Posture/Palpation/Skin Start: 09/29/18 08:55 Freq: Status: Active Protocol: Document 09/29/18 17:30 EA (Rec: 09/30/18 08:10 EA [id number]) Palpation Assessment Location One Palpation Location Both lateral patellar facets with more in the left Palpation Findings Tenderness Palpation Details Grade 2/4 at left lateral knee and right upper gluteals and SI joint Skin Assessment Edema Assessment Bilateral Ankle Edema Type Non-Pitting Edema Degree 1+ Subjective Edema Description Tightness Comments Cellulitis to left leg Circumference Measurement 1 Location malleolus, both Measurement (Centimeters) 37 PT-OP-K Range of Motion Start: 09/29/18 08:55 Freq: Status: Active Protocol: Document 09/29/18 17:00 EA (Rec: 09/30/18 15:00 EA [id number]) Knee Goniometric Range of Motion Knee ROM Limitations Knee ROM Limitations Soft Tissue Tightness,Pain, Swelling Comments Both knee flexion-extension: 125 to 5 extension Ankle and Foot Goniometric Range of Motion Ankle and Foot Left Active Testing Position Sitting Dorsiflexion with Knee Flexed 5 Plantarflexion 40 Inversion 20 Eversion 10 Right Active Testing Position Sitting Dorsiflexion with Knee Flexed 5 Plantarflexion 40 Inversion 20 Eversion 10 Ankle and Foot ROM Limitations ROM Limitations Soft Tissue Tightness,Muscle Weakness,Pain PT-OP-L Special Tests Start: 09/29/18 08:55 Freq: Status: Active Protocol: Document 09/29/18 17:30 EA (Rec: 09/30/18 08:10 EA [id number]) Special Tests Knee Special Tests Edilson's Test Test Results + both Patellar Grind Test Test Results + both Varus- 25 Degrees Test Results - Valgus- 25 Degrees Test Results - Silvio's Sign Test Results + both PT-OP-M Strength Start: 09/29/18 08:55 Freq: Status: Active Protocol: Document 09/29/18 17:30 EA (Rec: 09/30/18 08:10 EA [id number]) Hip Strength Hip Manual Muscle Testing Right Flexion (L2) 4- Good- Extension (S1) 4- Good- Abduction 4- Good- Adduction 4- Good- External Rotation 4 Good Internal Rotation 4 Good Left Flexion (L2) 4- Good- Extension (S1) 4- Good- Abduction 4- Good- Adduction 4- Good- External Rotation 4 Good Internal Rotation 4 Good Knee Strength Knee Manual Muscle Testing Right Flexion (S2) 4 Good Extension (L3) 4- Good- Left Flexion (S2) 4+ Good+ Extension (L3) 5 Normal Ankle/Foot Strength Ankle and Foot Manual Muscle Testing Left Dorsiflexion (L4) 4+ Good+ Plantarflexion (S1) 4+ Good+ Inversion 4+ Good+ Eversion (S1) 4+ Good+ PT-OP-Q Treatments Start: 09/29/18 08:55 Freq: Status: Active Protocol: Document 12/02/18 08:15 LRN (Rec: 12/02/18 09:03 LRN [id number]) Gym Equipment Therapeutic Ball Sitting Clockwork Exercise Details Sitting Lg Green Ball for clockwork Ball Size/Color Green Therapeutic Exercises Other Exercises Core ex Other Exercise Name Hip lifts, shifts, circles Hip Ext Other Exercise Name Hip Ext Reps/Minutes 10 x each Toe Raises Other Exercise Name Ankle DF: Toes fwd, inward, outward Reps/Minutes 10 x each 4 Other Exercise Name standing marches and hip abduction Reps/Minutes 2 x 10 reps Comments SLS R is worse than L. 3 Other Exercise Name standing squats sit-stand Reps/Minutes 2 x 10 Heel Raises Other Exercise Name Toes at 10, 12, 2, & ending 10 O-Clock Ankle DF on DELIA Other Exercise Name Ankle DF stretch f/b active stretch while on DELIA Equipment Used DELIA, Stair railing 1 Other Exercise Name calves stretch: the DELIA Equipment Used DELIA Reps/Minutes 60 sec PT-OP-R Modalities Start: 09/29/18 08:55 Freq: Status: Active Protocol: Document 12/02/18 08:15 LRN (Rec: 12/02/18 09:03 LRN [id number]) Electric Stimulation Electric Stimulation Pre Mod Body Location R ankle, lateral side Duration (Minutes) 10 Intensity 48 Combined With Heat/Cold Cold Pack Comments Cold pack at ankle and knees Hot Pack/Cold Pack Treatment Cold Pack Location both knee, right ankle Patient Position Supine Treatment Duration (minutes) 10 Patient Tolerance Good PT-OP-T Assessment and Plan Start: 09/29/18 08:55 Freq: Status: Active Protocol: Document 12/02/18 08:15 LRN (Rec: 12/02/18 09:03 LRN [id number]) Physical Therapy Assessment Assessment Summary Assessment Stairs and gait easier, but no change in weight loss. Pt required T-Ball work on core in order to learn in standing. Further review for standing core ex needed. Physical Therapy Plan Frequency and Duration Frequency of Treatment 2x/Week Duration of Treatment 8 wks Plan of Care Start Date 11/24/18 Plan of Care End Date 01/24/19 Next Visit Focus/Plan Next Note Type Discharge Summary Next Visit Plan Continue to emphasize HEP with the last visit. Incorporate exercises that Mirela can do standing at work. DC to HEP/ Work ex program 1-2 visits.
--- NOTE | 2018-12-14 15:53 | PT.OTN ---
Current Diagnoses Pain in right knee (12/14/18) Pain in left knee (12/14/18) Pain in right ankle and joints of right foot (12/14/18) Pain in left ankle and joints of left foot (12/14/18) Low back pain (12/14/18) Physical Therapy Treatment Note PT-OP-A Visit Information Start: 09/29/18 08:55 Freq: Status: Active Protocol: Document 12/14/18 09:12 LRN (Rec: 12/14/18 09:52 LRN [id number]) Out-Patient Physical Therapy Visit Information Visit Information Visit Type Treatment Note Visit Start Time 09:12 Visit Stop Time 09:49 Total Visit Minutes 37 Visit Number 9 Number of INVESTIGATIVE ANALYST Visits 0 Evaluation Information Evaluation Date 09/29/18 Precautions Precautions Left leg cellulitis PT-OP-B Current Condition Start: 09/29/18 08:55 Freq: Status: Active Protocol: Document 09/29/18 17:35 EA (Rec: 10/04/18 07:46 EA [id number]) Current Condition History of Current Condition Onset Date Chronic, ~ 5 years ago Current Complaints Both knees and ankle aching pain and hip joint LOM History of Current Condition Patient reports multiple years of choronic joint pain to both knees and ankle with no history of previous injury. She reports gradual onset which she feels both LE's swelling and pain is less upon waking up in the morning and gradually builds up late afternoon after work. She has been taking OTC pain meds to managed pain. She reports that symptoms are on and off. She mentioned that she has lost 20 lbs of BW through walking and being active all day with the combination of good but not excellenet diet. She reports that she wants to go back to previous water aerobics exercises, hoever has been bothering by cellulitis. 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 Prior Treatments and Tests NO formal PT or treament in the past Recent X-rays to B knees and ankle MRI to lumbar region 04/2018 Future Testing and Treatments Planned None reported Treatment Goals Patient/Caregiver Goals 1. Wants to navigate stairs with normal alternating steps ability 2. Be able to walk > 3 blocks with good speed 3. 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 Baseline Function- Recreation/Hobbies Walking daily Current Functional Impairments (Reported) Functional Limitations- ADL's Independent Functional Limitations- Mobility/Gait Limited to less than 2 blocks with very slow az and waddling gait Functional Limitations- Work/School 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 Mild to moderate difficulty walking a mile in the mornings . States she is doing her HEP . Today is a difficult day because stiff and can't do a normal gait and step. Patient Questionnaires Lower Extremity Functional Scale LEFS Score 57 LEFS Impairment 20 to 39% Impaired (Score 48- 62) PT-OP-D Balance Start: 09/29/18 08:55 Freq: Status: Active Protocol: Document 09/29/18 17:30 EA (Rec: 09/30/18 08:10 EA [id number]) OP-PT Balance Assessment Sitting Balance Static Sitting Balance Ability Normal Sanchez Fall Scale Copyright Permission PT-OP-F Manual Assessment Start: 09/29/18 08:55 Freq: Status: Active Protocol: Document 09/29/18 17:30 EA (Rec: 09/30/18 08:10 EA [id number]) Manual Assessments Soft Tissue Assessment Soft Tissue Mobility Assessment Tightness to both calves, B quads, ITB, hip E-Rotators, hip flexors Joint Mobility Assessment Joint Mobility Assessment hypomobility to both TC joint PT-OP-G Mobility & Gait Start: 09/29/18 08:55 Freq: Status: Active Protocol: Document 09/29/18 17:30 EA (Rec: 08/01/19 08:10 EA [id number]) OP Gait Assessment Gait Gait Assistance Required: Independent Gait Deviations General Gait Pattern Decreased Stride Length, Decreased Feet Clearance,Wide Based Gait Comments Gait Comments Waddling gait with no push off , and wide base. Stair Climbing Evaluation Comments Stair Climbing Comments Step to with rails support PT-OP-J Posture/Palpation/Skin Start: 09/29/18 08:55 Freq: Status: Active Protocol: Document 09/29/18 17:30 EA (Rec: 09/30/18 08:10 EA [id number]) Palpation Assessment Location One Palpation Location Both lateral patellar facets with more in the left Palpation Findings Tenderness Palpation Details Grade 2/4 at left lateral knee and right upper gluteals and SI joint Skin Assessment Edema Assessment Bilateral Ankle Edema Type Non-Pitting Edema Degree 1+ Subjective Edema Description Tightness Comments Cellulitis to left leg Circumference Measurement 1 Location malleolus, both Measurement (Centimeters) 37 PT-OP-K Range of Motion Start: 09/29/18 08:55 Freq: Status: Active Protocol: Document 09/29/18 17:00 EA (Rec: 09/30/18 15:00 EA [id number]) Knee Goniometric Range of Motion Knee ROM Limitations Knee ROM Limitations Soft Tissue Tightness,Pain, Swelling Comments Both knee flexion-extension: 125 to 5 extension Ankle and Foot Goniometric Range of Motion Ankle and Foot Left Active Testing Position Sitting Dorsiflexion with Knee Flexed 5 Plantarflexion 40 Inversion 20 Eversion 10 Right Active Testing Position Sitting Dorsiflexion with Knee Flexed 5 Plantarflexion 40 Inversion 20 Eversion 10 Ankle and Foot ROM Limitations ROM Limitations Soft Tissue Tightness,Muscle Weakness,Pain PT-OP-L Special Tests Start: 09/29/18 08:55 Freq: Status: Active Protocol: Document 09/29/18 17:30 EA (Rec: 09/30/18 08:10 EA [id number]) Special Tests Knee Special Tests Edilson's Test Test Results + both Patellar Grind Test Test Results + both Varus- 25 Degrees Test Results - Valgus- 25 Degrees Test Results - Silvio's Sign Test Results + both PT-OP-M Strength Start: 09/29/18 08:55 Freq: Status: Active Protocol: Document 09/29/18 17:30 EA (Rec: 09/30/18 08:10 EA [id number]) Hip Strength Hip Manual Muscle Testing Right Flexion (L2) 4- Good- Extension (S1) 4- Good- Abduction 4- Good- Adduction 4- Good- External Rotation 4 Good Internal Rotation 4 Good Left Flexion (L2) 4- Good- Extension (S1) 4- Good- Abduction 4- Good- Adduction 4- Good- External Rotation 4 Good Internal Rotation 4 Good Knee Strength Knee Manual Muscle Testing Right Flexion (S2) 4 Good Extension (L3) 4- Good- Left Flexion (S2) 4+ Good+ Extension (L3) 5 Normal Ankle/Foot Strength Ankle and Foot Manual Muscle Testing Left Dorsiflexion (L4) 4+ Good+ Plantarflexion (S1) 4+ Good+ Inversion 4+ Good+ Eversion (S1) 4+ Good+ PT-OP-Q Treatments Start: 09/29/18 08:55 Freq: Status: Active Protocol: Document 12/14/18 09:12 LRN (Rec: 12/14/18 09:52 LRN [id number]) Therapeutic Exercises Supine Exercises 1 Supine Exercise Name Hamstrings, quads stretch Standing Exercises Ankle DF stretch Standing Exercise Name Gastroc stretch Side bilateral Equipment Used DELIA Reps/Minutes 2' Trunk rot w/T-Band Standing Exercise Name Trunk rot Side bilateral Equipment Used T-Band Lev 4 Trunk gaurav w/T-Band Standing Exercise Name Sidestepping T-Band at different levels (chest, abdomen) Side bilateral Equipment Used T-Band Lev 4 Reps/Minutes 10x each Comments Extra time for training Self-Care/Home Management Treatment Education Patient Education Home Exercise Program Activities Self-Care/Home Management Activities Issued & reviewed HEP: T-Band standing core strengthening ( lateral trunk & rot) & Hamstring/neural stretch. Issued extra long Lev 4 T-Band for standing trunk ex's. PT-OP-R Modalities Start: 09/29/18 08:55 Freq: Status: Active Protocol: Document 12/14/18 09:12 LRN (Rec: 12/14/18 09:52 LRN [id number]) Hot Pack/Cold Pack Treatment Cold Pack Location right ankle Patient Position Supine Treatment Duration (minutes) 10 Patient Tolerance Good PT-OP-T Assessment and Plan Start: 09/29/18 08:55 Freq: Status: Active Protocol: Document 12/14/18 09:12 LRN (Rec: 12/14/18 09:52 LRN [id number]) Physical Therapy Assessment Goals Four Impairment Step to gait on regular stairs Group Home Goal (LTG) Patient will use her apartment stairs with alternating feet with no increase of symptoms. GOOD PROGRESS LTG Duration 12/14/18 2/3rds progress towards goal. Three Impairment Impaired distance amb Speeder Operator Goal (LTG) Patient will amb more than a mile without difficulty SOME PROGRESS LTG Duration 5 wks 12/14/18: Can walk 1 mile w/mild>mod difficulty Two Impairment LEFS score 40/80 Group Home Goal (LTG) LEFS score of more than 50/80 to enhance quality of life LTG Duration 5 wks (12/14/18: GOAL MET) One Impairment No HEP In place Group Home Goal (LTG) Patient will exhibit independent HEP GOOD PROGRESS BUT NEEDS REMINDERS OF HOME EXERCISES LTG Duration 12/14/18 GOAL MET Assessment Summary Assessment Pt has made really good progress in therapy. She has a HEP consistent for her progress thus far. She has improved in function per improved LEFS score. She is able to ambulate a mile with mild to moderate difficulty and can now use a normal gait on the stairs and can walk 2/ 3rds of the way up/down her stairs to get into her apartment. The pt could benefit from further skilled physical therapy to improve her LE strength and stability of her legs, but due to insurance benefit limits she is choosing to be put on hold for 30 days before deciding on continuing therapy or discharging. Physical Therapy Plan Frequency and Duration Frequency of Treatment 2x/Week Duration of Treatment 8 wks Plan of Care Start Date 11/24/18 Plan of Care End Date 01/24/19 Next Visit Focus/Plan Next Note Type Discharge Summary Next Visit Plan Hold discharge for 30 days for pt to decide on financial situation of continuing therapy (self pay) or discharging. If pt returns, emphasis is on self care exercises that she can incorporate . Incorporate at work while standing.
== END 2018-12-15 12:56 ==
LOC: PHYS 09:00
PROVIDERS: PCP Physician Assistant; Visit Provider Physician Assistant
DX: M54.5 Low back pain (principal); M25.561 Pain in right knee; M25.562 Pain in left knee; M25.571 Pain in right ankle and joints of right foot; M25.572 Pain in left ankle and joints of left foot
CPT/HCPCS: 97010; 97014; 97032; 97110; 97162; 97535; G0283

== ENCOUNTER → 2019-06-07 09:34 | Outpatient (CLI) | payer OTHER, MEDICAID, SELFPAY ==
[2018-06-12 23:55] VITALS: BMI 50.6
== END ==
PROVIDERS: PCP Physician Assistant; Visit Provider Physician Assistant
DX: J02.9 Acute pharyngitis, unspecified (principal)
CPT/HCPCS: 87070; 87147

== ENCOUNTER → 2019-08-29 15:23 | Outpatient (CLI) | payer OTHER, MEDICAID, SELFPAY ==
[2018-06-12 23:55] VITALS: BMI 50.6
== END ==
PROVIDERS: PCP Physician Assistant; Visit Provider Physician Assistant
DX: R30.0 Dysuria (principal)
CPT/HCPCS: 87077; 87086; 87186

== ENCOUNTER → 2019-11-23 16:47 | Outpatient (CLI) | payer OTHER, MEDICAID, SELFPAY ==
[2018-06-12 23:55] VITALS: BMI 50.6
[2019-11-23 16:53] LABS: RBC Urine None Seen (0-5/HPF)
[2019-11-23 17:48] LABS: Appearance Urine UA CLEAR; Bilirubin Urine UA NEGATIVE (NEGATIVE); Color Urine UA YELLOW; Glucose Urine UA NEGATIVE (Negative); Ketones Urine UA NEGATIVE (NEGATIVE); Leukocyte Esterase Urine UA NEGATIVE (NEGATIVE); Nitrite Urine UA NEGATIVE (Negative); Occult Blood Urine UA NEGATIVE (Negative); Protein Urine UA NEGATIVE (Negative); Specific Gravity Urine UA <=1.005 (1.000-1.035); Urobilinogen Urine UA 0.2 E.U./dL (0.2)
[2019-11-23 17:58] LABS: Hemoglobin A1C% w Est Avg Glu 5.4 % (4.0-6.0)
[2019-11-23 18:01] LABS: pH Urine UA 6.5 (4.5-8.0)
[2019-11-23 18:02] LABS: Squamous Epithelial Cell Urine 1-5 /HPF (0-5/HPF); WBC Urine 10-30/HPF (0-5/HPF)
[2019-11-23 18:03] LABS: Amorphous Sediment Urine 1+; Bacteria Urine Moderate (10-30); Culture Indicated Urine Specimen Cultured
[2019-11-23 18:20] LABS: Alanine Aminotransferase 34 IU/L (<35); Albumin 4.1 g/dL (3.5-5.0); Albumin Globulin Ratio 1.1 (1.0-2.8); Alkaline Phosphatase 102 U/L (38-126); Aspartate Aminotransferase 32 IU/L (14-36); BUN Creatinine Ratio 25.7 (6-22); Bilirubin Total 0.4 mg/dL (0.2-1.3); Blood Urea Nitrogen 19 mg/dL (7-17); Calcium 9.8 mg/dL (8.4-10.2); Carbon Dioxide 29 mmol/L (22-32); Chloride 103 mmol/L (98-107); Estimated Glomerular Filt Rate > 60.0 mL/min (>60); Globulin 3.7 g/dL (1.7-4.1); Glucose 93 mg/dL (70-100); HEMOLYSIS < 15 (0-50); Sodium 139 mmol/L (137-145); Total Protein 7.8 g/dL (6.3-8.2)
[2019-11-23 18:22] LABS: Creatinine Urine Random 16.9 mg/dL
[2019-11-23 18:38] LABS: Microalbumin Urine Random < 0.6 mg/dL (0-1.6)
[2019-11-23 18:50] LABS: TSH w/ Reflex to FT4 4.26 uIU/mL (0.47-4.68)
[2019-11-24 16:48] LABS: Hep C Virus Ab w/Reflex Quant NEGATIVE s/c (NEGATIVE)
== END ==
PROVIDERS: PCP Family Medicine; Referring Provider Family Medicine; Visit Provider Family Medicine
DX: Z00.01 Encounter for general adult medical examination with abnormal findings (principal); N30.01 Acute cystitis with hematuria; E03.9 Hypothyroidism, unspecified; E66.9 Obesity, unspecified; I10 Essential (primary) hypertension
CPT/HCPCS: 36415; 80053; 81001; 82043; 82570; 83036; 84443; 86803; 87077; 87086; 87186

== ENCOUNTER → 2019-12-10 15:38 | Outpatient (CLI) | payer OTHER, MEDICAID, SELFPAY ==
[2018-06-12 23:55] VITALS: BMI 50.6
[2019-12-12 08:00] LABS: COVID19 Sendout Not Detected (Not Detect)
== END ==
PROVIDERS: PCP Family Medicine; Visit Provider Physician Assistant
DX: Z01.812 Encounter for preprocedural laboratory examination (principal)
CPT/HCPCS: 87635

== ENCOUNTER → 2020-03-20 14:19 | Outpatient (CLI) | payer OTHER, MEDICAID, SELFPAY ==
[2018-06-12 23:55] VITALS: BMI 50.6
--- NOTE | 2020-03-20 14:40 | DI.RAD.S_ITS ---
PROCEDURE: XR CHEST 2V INDICATIONS: cough TECHNIQUE: 2 views of the chest were acquired. COMPARISON: [facility], CR, XR CHEST 2V, 03/19/2018, 11:39. FINDINGS: Surgical changes and devices: None. Lungs and pleura: Lungs are clear. No pleural effusions or pneumothorax. Mediastinum: Mediastinal contours are normal. Heart size is normal. Bones and chest wall: No suspicious bony abnormalities. Soft tissues appear unremarkable. IMPRESSION: Normal for age, source of current cough symptoms is not seen. Dictated by: Yves Alfonso M.D. on 03/20/2020 at 15:22 Approved by: Yves Alfonso M.D. on 03/20/2020 at 15:22
[2020-03-20 14:42] LABS: COVID19 -Nasal RAPID POSITIVE (Negative)
== END ==
PROVIDERS: PCP Family Medicine; Visit Provider Nurse Practitioner Family
DX: U07.1 COVID-19 (principal); R05 Cough
CPT/HCPCS: 71046; 87635

== ENCOUNTER → 2020-04-04 11:09 | Outpatient (CLI) | payer OTHER, MEDICAID, SELFPAY ==
[2018-06-12 23:55] VITALS: BMI 50.6
[2020-04-04 13:16] LABS: COVID19 -Nasal RAPID Negative (Negative)
== END ==
PROVIDERS: PCP Family Medicine; Visit Provider Physician Assistant
DX: Z20.822 Contact with and (suspected) exposure to COVID-19 (principal)
CPT/HCPCS: 87635

== ENCOUNTER → 2020-04-23 09:47 | Outpatient (CLI) | payer OTHER, MEDICAID, SELFPAY ==
[2018-06-12 23:55] VITALS: BMI 50.6
[2020-04-23 14:15] LABS: COVID19 -Nasal RAPID Negative (Negative)
== END ==
PROVIDERS: PCP Family Medicine; Visit Provider Family Medicine Sleep Medicine
DX: Z20.822 Contact with and (suspected) exposure to COVID-19 (principal); G47.33 Obstructive sleep apnea (adult) (pediatric)
CPT/HCPCS: 87635; 95811

== ENCOUNTER → 2020-06-22 10:59 | Outpatient (CLI) | payer OTHER, MEDICAID, SELFPAY ==
[2018-06-12 23:55] VITALS: BMI 50.6
[2020-06-22] MEDS: COVID-19 VACC #1, MRNA(MOD) 100 MCG/0.5 ML VIAL IM (11:16)
== END ==
PROVIDERS: PCP Family Medicine; Visit Provider Internal Medicine
DX: Z23 Encounter for immunization (principal)
CPT/HCPCS: 0011A; 91301

== ENCOUNTER → 2020-07-20 10:10 | Outpatient (CLI) | payer OTHER, MEDICAID, SELFPAY ==
[2018-06-12 23:55] VITALS: BMI 50.6
[2020-07-20] MEDS: COVID-19 VACC #2, MRNA(MOD) 100 MCG/0.5 ML VIAL IM (10:17)
== END ==
PROVIDERS: PCP Family Medicine; Visit Provider Internal Medicine
DX: Z23 Encounter for immunization (principal)
CPT/HCPCS: 0012A; 91301

== ENCOUNTER 2020-08-04 14:29 | Emergency (ER) | payer OTHER, MEDICAID, SELFPAY ==
[2018-06-12 23:55] VITALS: BMI 50.6
[2020-08-04 14:30] VITALS: BMI 48.6
--- NOTE | 2020-08-04 14:39 | DI.RAD.S_ITS ---
PROCEDURE: XR CHEST 1V INDICATIONS: chest pain TECHNIQUE: One view of the chest was acquired. COMPARISON: [facility], CR, XR CHEST 2V, 03/20/2020, 14:46. [facility], CR, XR CHEST 2V, 03/19/2018, 11:39. FINDINGS: Surgical changes and devices: None. Lungs and pleura: Lungs are clear. No pleural effusions or pneumothorax. Mediastinum: Mediastinal contours appear normal. Heart size is normal. Bones and chest wall: No suspicious bony lesions. Overlying soft tissues appear unremarkable. IMPRESSION: Normal for age, source of current chest pain symptoms is not seen. Dictated by: Yves Alfonso M.D. on 08/04/2020 at 15:11 Approved by: Yves Alfonso M.D. on 08/04/2020 at 15:11
[2020-08-04 15:11] LABS: Alanine Aminotransferase 57 IU/L (<35); Albumin 4.6 g/dL (3.5-5.0); Albumin Globulin Ratio 1.2 (1.0-2.8); Alkaline Phosphatase 119 U/L (38-126); Aspartate Aminotransferase 51 IU/L (14-36); BUN Creatinine Ratio 21.4 (6-22); Bilirubin Total 0.5 mg/dL (0.2-1.3); Blood Urea Nitrogen 15 mg/dL (7-17); Calcium 10.3 mg/dL (8.4-10.2); Carbon Dioxide 25 mmol/L (22-32); Chloride 103 mmol/L (98-107); Creatine Kinase 221 U/L (30-135); Estimated Glomerular Filt Rate > 60.0 mL/min (>60); Glucose 100 mg/dL (70-100); HEMOLYSIS < 15 (0-50); Lipase 97 U/L (23-300); Magnesium 1.9 mg/dL (1.6-2.3); Potassium 3.6 mmol/L (3.4-5.1); Sodium 138 mmol/L (137-145); Total Protein 8.6 g/dL (6.3-8.2)
[2020-08-04 15:15] VITALS: BP 192/108; PULSE 68; RESP 20; TEMP 36.8; O2SAT 98
[2020-08-04 15:23] LABS: Troponin I < 0.012 ng/mL (0.01-0.034)
--- NOTE | 2020-08-04 15:24 | PC.NURSE ---
pt states she works at the [employer]. was picking up a heavy box and felt a sharp pain in her chest that started to radiate up into her jaw. pain has resolved and lasted minutes and states she started to feel anxious and lightheaded. on arrival, AAOx3, HR 67 NSR, lungs clear, obese, h/o HTN and BP 198/108 at this time takes atenolol. skin PWD. Ambulatory.
[2020-08-04 15:25] LABS: Add Manual Diff / Slide Review NO; Basophils Absolute Auto 0 /uL (0-100); Basophils Percent Auto 0.6 % (0-2); Eosinophils Absolute Auto 200 /uL (0-450); Eosinophils Percent Auto 2.2 % (2-4); Hematocrit 41.9 % (36-46); Lymphocytes Absolute Auto 2300 /uL (1100-4500); Lymphocytes Percent Auto 32.6 % (25-40); Mean Corpuscular HGB Conc 33.4 % (30-36); Mean Corpuscular Hemoglobin 28.7 PG (26-34); Monocytes Absolute Auto 700 /uL (0-900); Monocytes Percent Auto 9.8 % (3-14); Neutrophils Absolute Auto 3900 /uL (1500-7000); Neutrophils Percent Auto 54.8 % (50-75); Platelet Count 206 X10^3/uL (150-400); Red Blood Cell Count 4.88 X10^6/uL (4.0-5.2); White Blood Cell Count 7.1 X10^3/uL (4.5-11.0)
[2020-08-04 15:27] LABS: CKMB % Relative Index 1.1 % (1.5-5.0); Creatine Kinase MB 2.46 ng/mL (<2.37)
--- NOTE | 2020-08-04 15:53 | ED_ITS ---
HPI - Chest Pain General Chief Complaint: Chest Pain Stated Complaint: chest pain Time Seen by Provider: 08/04/20 15:19 Source: patient Mode of arrival: Ambulatory Limitations: no limitations History of Present Illness HPI narrative: Patient is a 55-year-old female with a history of hypothyroidism who is here for evaluation of an episode that occurred with prior to arrival here in the emergency department. She states that she was working at the [employer]. She was lifting up to heavy totes of objects and twisting at the time. She states she had an onset of pain in her jaw. States that was both sides. She then developed some chest discomfort. She thinks that the whole episode lasted minutes. It was a fairly sudden onset but gradually improved. She states that she then became anxious about the situation. Because of the anxiety she is unsure whether not the symptoms became better worse with pa lpation or movement or breathing. States she did not think that her heart was beating fast at the time. At the time my evaluation she was symptom-free Related Data Home Medications Medication Instructions Recorded Confirmed ibuprofen 200 mg tablet 600 mg PO Q8-10H PRN 06/10/18 04/18/20 Naproxen 200 mg 2 tab PO .QDAY PRN 08/16/18 04/18/20 omega-3 fatty acids PO TID 11/23/19 02/08/20 Previous Rx's Medication Instructions Recorded terbinafine HCl 250 mg tablet 250 mg PO DAILY #84 tab 02/08/20 atenolol 50 mg tablet See Rx Instructions .ROUTE 07/26/20 .COMPLEX #90 tab levothyroxine 200 mcg tablet 200 mcg PO DAILY #90 tab 07/26/20 Allergies Allergy/AdvReac Type Severity Reaction Status Date / Time metoclopramide AdvReac Severe Verified 02/08/20 14:31 NERVOUS/AGITATION AND SUICIDAL THOUGHTS Review of Systems Constitutional Constitutional: Denies fever(s) Cardiovascular Cardiovascular: Reports chest pain and Denies dyspnea Respiratory Respiratory: Denies dyspnea Gastrointestinal Gastrointestinal: Denies abdominal pain, Denies nausea and Denies vomiting Genitourinary Genitourinary: Reports system reviewed and no additional complaints, except as documented Musculoskeletal Musculoskeletal: Reports system reviewed and no additional complaints, except as documented Integumentary/Breasts Skin/Breast: Denies rash Neurologic Neurologic: Reports system reviewed and no additional complaints, except as documented Hematologic/Lymphatic On Anticoagulants: No Allergic/Immunologic Allergic/Immunologic: Reports system reviewed and no additional complaints, except as documented Patient History Medical History Bilateral primary osteoarthritis of knee Cough Excessive daytime sleepiness HTN (hypertension) Hypothyroidism 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 Morbid obesity with body mass index (BMI) of 50.0 to 59.9 in adult Nocturnal hypoxemia Obstructive sleep apnea, adult Polycystic ovary syndrome Snoring UTI (urinary tract infection) Surgical History History of bilateral salpingo-oophorectomy (BSO) (05/11/17) History of third molar tooth extraction Status post adenoidectomy Status post eye surgery Status post laparoscopic cholecystectomy Status post laparoscopic supracervical hysterectomy (05/11/17) Status post surgery (08/08/13) Family History Family/Other Adopted Social History household members: none Smoking Status: Current some day smoker Tobacco: How many years used: 4 second hand exposure: No alcohol intake: current substance use type: does not use Smoking Status: Current some day smoker alcohol intake frequency: a few times a week Substance Use Type: does not use Exam Initial Vital Signs Initial Vital Signs: Vital Signs Temperature 98.2 F 08/04/20 15:15 Pulse Rate 68 08/04/20 15:15 Respiratory Rate 20 08/04/20 15:15 Blood Pressure 192/108 H 08/04/20 15:15 Pulse Oximetry 98 08/04/20 15:15 Const General: cooperative and comfortable Limitations: mental status not altered HENMT Head: normal to inspection and normocephalic Resp Effort & Inspection: normal respiratory effort Auscultation: clear to auscultation bilaterally Cardio Rate: regular rate Rhythm: regular rhythm GI Inspection: non-distended Palpation: soft Skin Lesions: no lesions Rashes: no rashes Neuro General: patient alert and patient awake Cognition: normal cognition Speech: speech normal Extrem General: capillary refill normal Psych Appearance: grossly normal and well kempt Scores HEART Score Heart Score history: Slightly Suspicious Heart Score EKG: Normal Heart Score Age: 45-64 years old Heart Score risk factors: No known risk factors Heart Score troponin: < or = to normal limit Heart Score Total: 1 Course Orders Ordered: ED Orders 08/04/20 14:39 XR chest 1V Stat EKG-12 Lead Stat 08/04/20 14:55 Complete Blood Count AUTO DIFF Stat Comprehensive Metabolic Panel Stat Lipase Stat Magnesium Stat Troponin & CK Cardiac Panel Stat 08/04/20 17:03 Troponin & CK Cardiac Panel Stat Vital Signs Vital signs: Vital Signs - 8 hr 08/04/20 15:15 Temperature 98.2 F Pulse Rate 68 Respiratory Rate 20 Blood Pressure 192/108 H Pulse Oximetry 98 MDM - Chest Pain Lab Data Attestation: I reviewed the patient's lab results. Result diagrams: 08/04/20 14:55 08/04/20 14:55 Labs: Lab Results 08/04/20 08/04/20 08/04/20 Range/Units 14:55 14:55 17:03 WBC 7.1 (4.5-11.0) X10^3/uL RBC 4.88 (4.0-5.2) X10^6/uL Hgb 14.0 (12.0-16.0) g/dL Hct 41.9 (36-46) % MCV 86.0 (80-100) fL MCH 28.7 (26-34) PG MCHC 33.4 (30-36) % RDW 14.0 (11.6-14.8) % Plt Count 206 (150-400) X10^3/uL Neut % (Auto) 54.8 (50-75) % Lymph % (Auto) 32.6 (25-40) % [place] % (Auto) 9.8 (3-14) % Eos % (Auto) 2.2 (2-4) % Baso % (Auto) 0.6 (0-2) % Neut # (Auto) 3900 (7020-7069) /uL Lymph # (Auto) 2300 (5213-7227) /uL [place] # (Auto) 700 (0-900) /uL Eos # (Auto) 200 (0-450) /uL Baso # (Auto) 0 (0-100) /uL Sodium 138 (137-145) mmol/L Potassium 3.6 (3.4-5.1) mmol/L Chloride 103 (98-107) mmol/L Carbon Dioxide 25 (22-32) mmol/L BUN 15 (7-17) mg/dL Creatinine 0.70 (0.52-1.04) mg/dL Estimated GFR > 60.0 (>60) mL/min BUN/Creatinine Ratio 21.4 (6-22) Glucose 100 (70-100) mg/dL Calcium 10.3 H (8.4-10.2) mg/dL Magnesium 1.9 (1.6-2.3) mg/dL Total Bilirubin 0.5 (0.2-1.3) mg/dL AST 51 H (14-36) IU/L ALT 57 H (<35) IU/L Alkaline Phosphatase 119 (38-126) U/L Total Creatine Kinase 221 H 212 H (30-135) U/L CK-MB (CK-2) 2.46 H 2.38 H (<2.37) ng/mL CK-MB (CK-2) Rel Index 1.1 L 1.1 L (1.5-5.0) % Troponin I < 0.012 < 0.012 (0.01-0.034) ng/mL Total Protein 8.6 H (6.3-8.2) g/dL Albumin 4.6 (3.5-5.0) g/dL Globulin 4.0 (1.7-4.1) g/dL Albumin/Globulin Ratio 1.2 (1.0-2.8) Lipase 97 (23-300) U/L Imaging Data Chest x-ray: Radiologist's Impression: [address] [id number] ReportSigned Patient: Mirela Alvarez [facility]#: [id number]: 1965Acct:[id number]/Sex: 55 / FDate of Service: 08/04/20Loc: EDAccession Number: [id number] Procedure: XR chest 1V Ordering Provider: Debra Crocker D.O. PROCEDURE: XR CHEST 1V INDICATIONS: chest pain TECHNIQUE: One view of the chest was acquired. COMPARISON: [facility], CR, XR CHEST 2V, 03/20/2020, 14:46. [facility], CR, XR CHEST 2V, 03/19/2018, 11:39. FINDINGS: Surgical changes and devices: None. Lungs and pleura: Lungs are clear. No pleural effusions or pneumothorax. Mediastinum: Mediastinal contours appear normal. Heart size is normal. Bones and chest wall: No suspicious bony lesions. Overlying soft tissues appear unremarkable. IMPRESSION: Normal for age, source of current chest pain symptoms is not seen. Dictated by: Yves Alfonso M.D. on 08/04/2020 at 15:11 Approved by: Yves Alfonso M.D. on 08/04/2020 at 15:11 ECG Data Attestation: I personally reviewed and interpreted this ECG as follows: Prior ECG tracings: not available for review Interpretation: Sinus rhythm Ventricular rate is 72 Normal QRS Normal QTC One PVC No ST T wave changes MDM Narrative Medical decision making narrative: Patient is a low risk heart score. Chest x- ray is unremarkable. EKG unremarkable. Troponins negative x2. Low suspicion for ACS given her presentation today however she was given instructions to contact her primary doctor for follow-up to discuss further risk stratification. She was given return precautions and follow-up instructions. She expressed understanding and agreement. Discharge Plan Departure Patient Disposition: Home Clinical Impression: Atypical chest pain Instructions: DI for Atypical Chest Pain Activity Restrictions/Additional Instructions: Your workup here in the emergency department to evaluate your heart in your lungs is very reassuring. Despite this I do recommend that you contact your primary doctor for a follow-up. Continue all of your medications as directed and please return to the emergency department for any new or worsening symptoms Prescriptions: No Action ibuprofen [Ibuprofen IB] 200 mg tablet 600 mg PO Q8-10H PRN (Reason: fever / pain) RF: 0 atenolol 50 mg tablet See Rx Instructions .ROUTE .COMPLEX Qty: 90 RF: 0 levothyroxine 200 mcg tablet 200 mcg PO DAILY Qty: 90 RF: 2 omega-3 fatty acids PO TID RF: 0 Naproxen 200 mg 2 tab PO .QDAY PRNRF: 0 terbinafine HCl 250 mg tablet 250 mg PO DAILY Qty: 84 RF: 0 Referrals: Gómez Juarez MD [Primary Care Provider] -
[2020-08-04 16:10] VITALS: PULSE 67; O2SAT 95
[2020-08-04 16:12] VITALS: BP 152/78; PULSE 64; O2SAT 98
[2020-08-04 16:30] VITALS: BP 138/68; PULSE 67; RESP 17; O2SAT 99
[2020-08-04 17:28] LABS: Creatine Kinase 212 U/L (30-135)
[2020-08-04 17:40] LABS: Troponin I < 0.012 ng/mL (0.01-0.034)
[2020-08-04 17:43] LABS: CKMB % Relative Index 1.1 % (1.5-5.0); Creatine Kinase MB 2.38 ng/mL (<2.37)
[2020-08-04 18:17] VITALS: PULSE 66; O2SAT 95
[2020-08-04 18:18] VITALS: BP 149/95; PULSE 63; RESP 16; O2SAT 96
== END 2020-08-04 18:32 | disposition home or self-care (01) ==
PROVIDERS: Emergency Medicine; Emergency Provider Emergency Medicine; PCP Family Medicine
DX: R07.89 Other chest pain (principal)
CPT/HCPCS: 36415; 71045; 80053; 82550; 82553; 83690; 83735; 84484; 85025; 93005; 99284

== ENCOUNTER → 2020-08-08 15:19 | Outpatient (CLI) | payer OTHER, MEDICAID, SELFPAY ==
[2018-06-12 23:55] VITALS: BMI 50.6
[2020-08-08 17:38] LABS: TSH w/ Reflex to FT4 4.23 uIU/mL (0.47-4.68)
== END ==
PROVIDERS: PCP Family Medicine; Referring Provider Family Medicine; Visit Provider Family Medicine
DX: E03.9 Hypothyroidism, unspecified (principal)
CPT/HCPCS: 36415; 84443

== ENCOUNTER 2020-08-11 09:00 | Emergency (ER) | payer OTHER, MEDICAID, SELFPAY ==
[2018-06-12 23:55] VITALS: BMI 50.6
[2020-08-11] VITALS (7 sets, daily range): BP systolic 127–157; BP diastolic 64–77; PULSE 71–89; RESP 24; TEMP 37.2; O2SAT 95–99
--- NOTE | 2020-08-11 09:04 | ED_ITS ---
HPI - Skin/Abscess/Foreign Bdy General Chief complaint: Skin/Abscess/Foreign Body Stated complaint: cellulitis Time Seen by Provider: 08/11/20 09:04 Source: patient Mode of arrival: Ambulatory Limitations: no limitations History of Present Illness HPI narrative: 55-year-old female nonsmoker with history of hypertension hypothyroid as well as previous experiences with cellulitis presents with a chief complaint of a hot sensation particularly in her left lower extremity subjective fever and rigors last night. She states she feels this way when she gets cellulitis in her lower extremities. She states that the source previously had been cracks in the bottom of her feet and she is concerned that this is the case today. She denies any dizziness, weakness or lightheadedness. She denies any runny nose, sore throat, cough or chest pain. She denies any abdominal pain, dysuria, frequency or urgency. MD complaint: other Onset (ago): hour(s) Tetanus up to date: yes Location: LLE Severity: mild Quality: burning and aching Pain Consistency: constant Relieving factors: none Exacerbating factors: movement Context: none Associated symptoms: fever, chills and rigors Treatments prior to arrival: none Related Data Home Medications Medication Instructions Recorded Confirmed ibuprofen 200 mg tablet 600 mg PO Q8-10H PRN 06/10/18 08/08/20 Naproxen 200 mg 2 tab PO .QDAY PRN 08/16/18 08/08/20 omega-3 fatty acids PO TID 11/23/19 08/08/20 Previous Rx's Medication Instructions Recorded terbinafine HCl 250 mg tablet 250 mg PO DAILY #84 tab 02/08/20 atenolol 50 mg tablet See Rx Instructions .ROUTE 07/26/20 .COMPLEX #90 tab levothyroxine 200 mcg tablet 200 mcg PO DAILY #90 tab 07/26/20 Allergies Allergy/AdvReac Type Severity Reaction Status Date / Time metoclopramide AdvReac Severe Verified 08/11/20 09:16 NERVOUS/AGITATION AND SUICIDAL THOUGHTS Review of Systems Constitutional Constitutional: Reports chills, Denies fatigue, Reports fever(s), Denies frequent falls, Denies lethargy and Denies weakness Eyes Eyes: Denies change in vision, Denies eye discharge, Denies irritation and Denies loss of vision ENT Ears, Nose, Mouth, and Throat: Denies change in voice, Denies dizziness, Denies neck pain, Denies sore throat and Denies throat swelling Cardiovascular Cardiovascular: Denies chest pain, Denies irregular heart rhythm, Denies lightheadedness, Denies palpitations, Denies dyspnea, Denies dyspnea on exertion and Denies orthopnea Respiratory Respiratory: Denies cough, Denies dyspnea, Denies dyspnea on exertion and Denies wheezing Gastrointestinal Gastrointestinal: Denies abdominal pain, Denies change in bowel habits, Denies diarrhea, Denies nausea and Denies vomiting Musculoskeletal Musculoskeletal: Denies neck pain and Denies numbness Comments: LLE warmth, mild pain Integumentary/Breasts Skin/Breast: Denies pruritus, Denies erythema, Denies rash and Denies wounds Neurologic Neurologic: Denies behavioral changes, Denies confusion, Denies dizziness, Denies frequent falls, Denies loss of vision, Denies numbness and Denies weakness Psychiatric Psychiatric: Denies anxiety, Denies behavioral changes, Denies confusion, Denies depression, Denies homicidal ideation and Denies suicidal ideation Endocrine Endocrine: Denies fatigue, Denies flushing and Denies palpitations Hematologic/Lymphatic Hematologic/Lymphatic: Denies easy bruising Allergic/Immunologic Allergic/Immunologic: Denies urticaria, Denies throat swelling and Denies wheezing Patient History Medical History Bilateral primary osteoarthritis of knee Cough Excessive daytime sleepiness HTN (hypertension) Hypothyroidism 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 Mass of left wrist Morbid obesity with body mass index (BMI) of 50.0 to 59.9 in adult Nocturnal hypoxemia Obstructive sleep apnea, adult Polycystic ovary syndrome Snoring UTI (urinary tract infection) Surgical History History of bilateral salpingo-oophorectomy (BSO) (05/11/17) History of third molar tooth extraction Status post adenoidectomy Status post eye surgery Status post laparoscopic cholecystectomy Status post laparoscopic supracervical hysterectomy (05/11/17) Status post surgery (08/08/13) Family History Family/Other Adopted Social History household members: none Smoking Status: Current some day smoker Tobacco: How many years used: 4 second hand exposure: No alcohol intake: current substance use type: does not use Smoking Status: Current some day smoker alcohol intake frequency: a few times a week Substance Use Type: does not use Exam Narrative Exam Narrative: GENERAL: [55] year old patient appears stated age. Well- developed patient, in mild distress. HEAD: Atraumatic. Normocephalic. EYES: Pupils equal round and reactive. Extraocular motions intact. No scleral icterus. No injection or drainage. ENT: Nose without bleeding, purulent drainage. Throat without erythema, tonsillar hypertrophy or exudate. Airway patent. NECK: Trachea midline. Non tender CARDIOVASCULAR: Regular rate and rhythm without murmurs, gallops, or rubs. RESPIRATORY: Clear to auscultation. Breath sounds equal bilaterally. No wheezes, rales, or rhonchi. GASTROINTESTINAL: Abdomen soft, non-tender, nondistended. EXTREMITIES: Bilateral lower extremities with evidence of chronic venous stasis left lower extremity perhaps a bit warm to the touch. No obvious erythema BACK: Nontender without deformity or crepitance. No flank tenderness. NEURO: AOx3. SKIN: No rash or erythema of visible areas Initial Vital Signs Initial Vital Signs: Vital Signs Temperature 98.9 F 08/11/20 09:14 Pulse Rate 89 08/11/20 09:14 Respiratory Rate 24 08/11/20 09:14 Blood Pressure 157/77 H 08/11/20 09:14 Pulse Oximetry 98 08/11/20 09:14 Course Orders Ordered: ED Orders 08/11/20 09:35 Blood Culture Stat Complete Blood Count AUTO DIFF Stat Comprehensive Metabolic Panel Stat Lactate (Lactic Acid) Stat Sodium Chloride (Normal Saline 0.9%) 1,000 mls @ 125 mls/hr IV CONT HERMANN Vital Signs Vital signs: Vital Signs - 8 hr 08/11/20 09:14 Temperature 98.9 F Pulse Rate 89 Respiratory Rate 24 Blood Pressure 157/77 H Pulse Oximetry 98 MDM - Skin/Abscess/Foreign Bdy Lab Data Result diagrams: 08/11/20 09:35 08/11/20 09:35 Discharge Plan Departure Prescriptions: No Action ibuprofen [Ibuprofen IB] 200 mg tablet 600 mg PO Q8-10H PRN (Reason: fever / pain) RF: 0 atenolol 50 mg tablet See Rx Instructions .ROUTE .COMPLEX Qty: 90 RF: 0 levothyroxine 200 mcg tablet 200 mcg PO DAILY Qty: 90 RF: 2 omega-3 fatty acids PO TID RF: 0 Naproxen 200 mg 2 tab PO .QDAY PRNRF: 0 terbinafine HCl 250 mg tablet 250 mg PO DAILY Qty: 84 RF: 0
[2020-08-11 09:44] LABS: Add Manual Diff / Slide Review NO; Basophils Absolute Auto 100 /uL (0-100); Basophils Percent Auto 0.4 % (0-2); Eosinophils Absolute Auto 0 /uL (0-450); Eosinophils Percent Auto 0.1 % (2-4); Hematocrit 40.3 % (36-46); Hemoglobin 13.4 g/dL (12.0-16.0); Lymphocytes Absolute Auto 1200 /uL (1100-4500); Lymphocytes Percent Auto 7.1 % (25-40); Mean Corpuscular HGB Conc 33.3 % (30-36); Mean Corpuscular Hemoglobin 28.6 PG (26-34); Monocytes Absolute Auto 1000 /uL (0-900); Monocytes Percent Auto 5.6 % (3-14); Neutrophils Absolute Auto 14900 /uL (1500-7000); Neutrophils Percent Auto 86.8 % (50-75); Platelet Count 168 X10^3/uL (150-400); Red Blood Cell Count 4.69 X10^6/uL (4.0-5.2); Red Cell Distribution Width 14.2 % (11.6-14.8); White Blood Cell Count 17.2 X10^3/uL (4.5-11.0)
[2020-08-11] MEDS: SODIUM CHLORIDE 0.9% 1,000 ML 125 ML IV (09:48)
[2020-08-11 09:57] LABS: Alanine Aminotransferase 42 IU/L (<35); Albumin 4.4 g/dL (3.5-5.0); Albumin Globulin Ratio 1.2 (1.0-2.8); Alkaline Phosphatase 92 U/L (38-126); Aspartate Aminotransferase 38 IU/L (14-36); BUN Creatinine Ratio 18.6 (6-22); Bilirubin Total 0.8 mg/dL (0.2-1.3); Blood Urea Nitrogen 13 mg/dL (7-17); Calcium 9.8 mg/dL (8.4-10.2); Carbon Dioxide 30 mmol/L (22-32); Chloride 101 mmol/L (98-107); Estimated Glomerular Filt Rate > 60.0 mL/min (>60); Globulin 3.8 g/dL (1.7-4.1); Glucose 113 mg/dL (70-100); HEMOLYSIS < 15 (0-50); Lactate (Lactic Acid) 1.8 mmol/L (0.7-2.1); Sodium 137 mmol/L (137-145); Total Protein 8.2 g/dL (6.3-8.2)
--- NOTE | 2020-08-11 09:57 | DI.US.S_ITS ---
PROCEDURE: US PERIPH VENOUS LOW EXTREM LT INDICATIONS: PAIN, REDNESS, SWELLING TECHNIQUE: Real-time imaging, as well as color and pulse Doppler interrogation, were performed of the lower extremity deep veins from the inguinal ligament to the popliteal fossa. COMPARISON: None. FINDINGS: The common femoral, femoral and popliteal veins are normally compressible, and free of intraluminal thrombus. Color and pulse Doppler demonstrate normal phasic intraluminal flow. There is normal augmentation response to distal compression maneuver. Note is made of soft tissue edema involving the calf and ankle. IMPRESSION: Negative for deep venous thrombosis. Dictated by: Demetri Garcia M.D. on 08/11/2020 at 9:57 Approved by: Demetri Garcia M.D. on 08/11/2020 at 9:58
[2020-08-11 10:00] LABS: Bacteria Urine None Seen; RBC Urine None Seen (0-5/HPF); WBC Urine None Seen (0-5/HPF)
[2020-08-11 10:01] LABS: Appearance Urine UA CLEAR; Bilirubin Urine UA NEGATIVE (NEGATIVE); Color Urine UA YELLOW; Glucose Urine UA NEGATIVE (Negative); Ketones Urine UA NEGATIVE (NEGATIVE); Leukocyte Esterase Urine UA NEGATIVE (NEGATIVE); Nitrite Urine UA NEGATIVE (Negative); Occult Blood Urine UA NEGATIVE (Negative); Protein Urine UA NEGATIVE (Negative); Specific Gravity Urine UA <=1.005 (1.000-1.035); Urobilinogen Urine UA 0.2 E.U./dL (0.2)
[2020-08-11 10:04] LABS: pH Urine UA 6.5 (4.5-8.0)
[2020-08-11 10:06] LABS: Culture Indicated Urine Cult Not Indicated; Urine Comments Microscopic Normal
--- NOTE | 2020-08-15 15:04 | PC.NURSE ---
late entry, 1100 am ivf of normal saline stopped.
== END 2020-08-11 11:15 | disposition home or self-care (01) ==
PROVIDERS: Emergency Provider Emergency Medicine; PCP Family Medicine
DX: L03.116 Cellulitis of left lower limb (principal); R50.9 Fever, unspecified
CPT/HCPCS: 36415; 80053; 81001; 83605; 85025; 87040; 93971; 96360; 99284

== ENCOUNTER 2020-08-12 14:30 | Emergency (ER) | payer OTHER, MEDICAID, SELFPAY ==
[2018-06-12 23:55] VITALS: BMI 50.6
[2020-08-12 14:36] VITALS: BP 164/89; PULSE 80; RESP 20; TEMP 36.4; O2SAT 96
--- NOTE | 2020-08-12 14:48 | ED.SKABFB ---
HPI - Skin/Abscess/Foreign Bdy General Chief complaint: Skin/Abscess/Foreign Body Stated complaint: cellulitis in right leg getting worse Time Seen by Provider: 08/12/20 14:43 Source: patient Mode of arrival: Ambulatory Limitations: no limitations History of Present Illness HPI narrative: Patient is a 55-year-old female who presents with right lower extremity cellulitis seen and evaluated here yesterday and started on doxycycline. She says of for 2 days she has had rigors and sweats. Yesterday she was found to have leukocytosis of 17,000. She has taken 3 doses of doxycycline and says that the erythema has spread and she also is noticing it a little bit on her left lower leg as well. She denies any pain. MD complaint: rash Location: RLE Related Data Home Medications Medication Instructions Recorded Confirmed atenolol 50 mg PO DAILY 08/11/20 08/11/20 Previous Rx's Medication Instructions Recorded levothyroxine 200 mcg tablet 200 mcg PO DAILY #90 tab 07/26/20 doxycycline hyclate 100 mg PO BID #20 tab 08/11/20 Allergies Allergy/AdvReac Type Severity Reaction Status Date / Time metoclopramide AdvReac Severe Verified 08/11/20 09:16 NERVOUS/AGITATION AND SUICIDAL THOUGHTS Review of Systems Review of Systems Narrative: GENERAL: Denies chills, fatigue, malaise, fever, sweats, travel HEENT: Denies sinus pain, ear pain, sore throat, difficulty swallowing, neck pain RESPIRATORY: Denies dyspnea, cough, wheezing, hemoptysis, sputum. CARDIOVASCULAR: Denies chest pain, palpitations, orthopnea, edema GASTROINTESTINAL: Denies nausea, vomiting, abdominal pain, diarrhea, constipation, melena. : Denies dysuria, frequency, incontinence, hematuria, urinary retention, flank pain. MUSCULOSKELETAL: Denies weakness, joint pain, or bony pain SKIN: See HPI NEUROLOGIC: Denies weakness, dizziness, headache, numbness, change in speech, confusion PSYCHIATRIC: No concerning psychosocial issues. 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 Mass of left wrist Morbid obesity with body mass index (BMI) of 50.0 to 59.9 in adult Nocturnal hypoxemia Obstructive sleep apnea, adult Polycystic ovary syndrome Snoring UTI (urinary tract infection) Surgical History History of bilateral salpingo-oophorectomy (BSO) (05/11/17) History of third molar tooth extraction Status post adenoidectomy Status post eye surgery Status post laparoscopic cholecystectomy Status post laparoscopic supracervical hysterectomy (05/11/17) Status post surgery (08/08/13) Family History Family/Other Adopted Social History household members: none Smoking Status: Current some day smoker Tobacco: How many years used: 4 second hand exposure: No alcohol intake: current substance use type: does not use Smoking Status: Current some day smoker alcohol intake frequency: a few times a week Substance Use Type: does not use Exam Initial Vital Signs Initial Vital Signs: Vital Signs Temperature 97.6 F 08/12/20 14:36 Pulse Rate 80 08/12/20 14:36 Respiratory Rate 20 08/12/20 14:36 Blood Pressure 164/89 H 08/12/20 14:36 Pulse Oximetry 96 08/12/20 14:36 GENERAL: Alert 55-year-old female HEENT: Head atraumatic,EOMI, pupils reactive, face symmetric, moist mucous membranes CARDIOVASCULAR: Regular rate and rhythm without murmurs, rubs or gallops. RESPIRATORY: Breath sounds equal bilaterally, no wheezes rales or rhonchi. ABDOMEN: Soft, nontender. Normoactive bowel sounds all 4 quadrants. No guarding or rebound. EXTREMITIES: Normal range of motion, no clubbing or edema. Neurovascularly intact NEUROLOGICAL: Alert and oriented x4.Normal gait and speech. SKIN: Right lower extremity erythema chronic a cellulitis also noted to the just inferior the knee no significant erythema appreciated on the left Course Orders Ordered: ED Orders 08/12/20 14:50 Blood Culture Stat Complete Blood Count AUTO DIFF Stat Comprehensive Metabolic Panel Stat Lactate (Lactic Acid) Stat Procalcitonin Stat Vital Signs Vital signs: Vital Signs - 8 hr 08/12/20 14:36 Temperature 97.6 F Pulse Rate 80 Respiratory Rate 20 Blood Pressure 164/89 H Pulse Oximetry 96 MDM - Skin/Abscess/Foreign Bdy Lab Data Attestation: I reviewed the patient's lab results. Result diagrams: 08/12/20 14:50 08/12/20 14:50 Labs: Lab Results 08/12/20 08/12/20 08/12/20 Range/Units 14:50 14:50 14:50 WBC 6.3 D (4.5-11.0) X10^3/uL RBC 4.59 (4.0-5.2) X10^6/uL Hgb 13.1 (12.0-16.0) g/dL Hct 39.7 (36-46) % MCV 86.4 (80-100) fL MCH 28.6 (26-34) PG MCHC 33.1 (30-36) % RDW 14.4 (11.6-14.8) % Plt Count 157 (150-400) X10^3/uL Neut % (Auto) 60.2 D (50-75) % Lymph % (Auto) 24.8 L (25-40) % [place] % (Auto) 12.3 (3-14) % Eos % (Auto) 2.4 (2-4) % Baso % (Auto) 0.3 (0-2) % Neut # (Auto) 3800 (8483-4078) /uL Lymph # (Auto) 1600 (0019-6756) /uL [place] # (Auto) 800 (0-900) /uL Eos # (Auto) 100 (0-450) /uL Baso # (Auto) 0 (0-100) /uL Sodium 138 (137-145) mmol/L Potassium 3.8 (3.4-5.1) mmol/L Chloride 101 (98-107) mmol/L Carbon Dioxide 29 (22-32) mmol/L BUN 15 (7-17) mg/dL Creatinine 0.75 (0.52-1.04) mg/dL Estimated GFR > 60.0 (>60) mL/min BUN/Creatinine Ratio 20.0 (6-22) Glucose 117 H (70-100) mg/dL Lactate 1.2 (0.7-2.1) mmol/L Calcium 9.8 (8.4-10.2) mg/dL Total Bilirubin 0.6 (0.2-1.3) mg/dL AST 46 H (14-36) IU/L ALT 46 H (<35) IU/L Alkaline Phosphatase 96 (38-126) U/L Total Protein 8.2 (6.3-8.2) g/dL Albumin 4.4 (3.5-5.0) g/dL Globulin 3.8 (1.7-4.1) g/dL Albumin/Globulin Ratio 1.2 (1.0-2.8) Procalcitonin (<0.5) ng/mL 08/12/20 Range/Units 14:50 WBC (4.5-11.0) X10^3/uL RBC (4.0-5.2) X10^6/uL Hgb (12.0-16.0) g/dL Hct (36-46) % MCV (80-100) fL MCH (26-34) PG MCHC (30-36) % RDW (11.6-14.8) % Plt Count (150-400) X10^3/uL Neut % (Auto) (50-75) % Lymph % (Auto) (25-40) % [place] % (Auto) (3-14) % Eos % (Auto) (2-4) % Baso % (Auto) (0-2) % Neut # (Auto) (9112-2848) /uL Lymph # (Auto) (8275-8693) /uL [place] # (Auto) (0-900) /uL Eos # (Auto) (0-450) /uL Baso # (Auto) (0-100) /uL Sodium (137-145) mmol/L Potassium (3.4-5.1) mmol/L Chloride (98-107) mmol/L Carbon Dioxide (22-32) mmol/L BUN (7-17) mg/dL Creatinine (0.52-1.04) mg/dL Estimated GFR (>60) mL/min BUN/Creatinine Ratio (6-22) Glucose (70-100) mg/dL Lactate (0.7-2.1) mmol/L Calcium (8.4-10.2) mg/dL Total Bilirubin (0.2-1.3) mg/dL AST (14-36) IU/L ALT (<35) IU/L Alkaline Phosphatase (38-126) U/L Total Protein (6.3-8.2) g/dL Albumin (3.5-5.0) g/dL Globulin (1.7-4.1) g/dL Albumin/Globulin Ratio (1.0-2.8) Procalcitonin 0.29 (<0.5) ng/mL MDM Narrative Medical decision making narrative: Blood work overall looks significantly better. At this time I recommend she continue taking doxycycline for at least a few more days to see if she notices any improvement I do not feel she has taking it long enough. She overall is afebrile and is not septic. Discharge Plan Departure Patient Disposition: Home Clinical Impression: Cellulitis Qualifiers: Site of cellulitis: extremity Site of cellulitis of extremity: lower extremity Laterality: right Qualified Code(s): L03.115 - Cellulitis of right lower limb Instructions: DI for Cellulitis -- Adult Activity Restrictions/Additional Instructions: *You have been diagnosed with right leg cellulitis *What to do: At this time please continue taking your antibiotics as previously prescribed. His your numbers look significantly better I suspect that the redness will start to improve in the next 24-48 hours *Continue to take medications as directed Tylenol 650 mg every 4-6 hours if needed for mild to moderate pain or fever Motrin 600 mg every 6 hours if needed for neac-tw-cddeovfy fever or pain *Follow up with your primary care provider in 2-3 days *Return to ER if you should have increasing redness persistent fever generalized weakness or any new, worsening or concerning symptoms Prescriptions: No Action levothyroxine 200 mcg tablet 200 mcg PO DAILY Qty: 90 RF: 2 atenolol 50 mg tablet 50 mg PO DAILY RF: 0 doxycycline hyclate 100 mg tablet 100 mg PO BID Qty: 20 RF: 0 Referrals: Gómez Juarez MD [Primary Care Provider] -
[2020-08-12 15:12] LABS: Add Manual Diff / Slide Review NO; Basophils Absolute Auto 0 /uL (0-100); Basophils Percent Auto 0.3 % (0-2); Eosinophils Absolute Auto 100 /uL (0-450); Eosinophils Percent Auto 2.4 % (2-4); Hematocrit 39.7 % (36-46); Hemoglobin 13.1 g/dL (12.0-16.0); Lymphocytes Absolute Auto 1600 /uL (1100-4500); Lymphocytes Percent Auto 24.8 % (25-40); Mean Corpuscular HGB Conc 33.1 % (30-36); Mean Corpuscular Hemoglobin 28.6 PG (26-34); Mean Corpuscular Volume 86.4 fL (80-100); Monocytes Absolute Auto 800 /uL (0-900); Monocytes Percent Auto 12.3 % (3-14); Neutrophils Absolute Auto 3800 /uL (1500-7000); Neutrophils Percent Auto 60.2 % (50-75); Platelet Count 157 X10^3/uL (150-400); Red Blood Cell Count 4.59 X10^6/uL (4.0-5.2); Red Cell Distribution Width 14.4 % (11.6-14.8); White Blood Cell Count 6.3 X10^3/uL (4.5-11.0)
[2020-08-12 15:18] LABS: Alanine Aminotransferase 46 IU/L (<35); Albumin 4.4 g/dL (3.5-5.0); Albumin Globulin Ratio 1.2 (1.0-2.8); Alkaline Phosphatase 96 U/L (38-126); Aspartate Aminotransferase 46 IU/L (14-36); Bilirubin Total 0.6 mg/dL (0.2-1.3); Blood Urea Nitrogen 15 mg/dL (7-17); Calcium 9.8 mg/dL (8.4-10.2); Carbon Dioxide 29 mmol/L (22-32); Chloride 101 mmol/L (98-107); Estimated Glomerular Filt Rate > 60.0 mL/min (>60); Globulin 3.8 g/dL (1.7-4.1); Glucose 117 mg/dL (70-100); HEMOLYSIS < 15 (0-50); Lactate (Lactic Acid) 1.2 mmol/L (0.7-2.1); Potassium 3.8 mmol/L (3.4-5.1); Sodium 138 mmol/L (137-145); Total Protein 8.2 g/dL (6.3-8.2)
[2020-08-12 15:35] LABS: Procalcitonin 0.29 ng/mL (<0.5)
[2020-08-12 16:36] VITALS: BP 156/78; PULSE 80; RESP 17
== END 2020-08-12 16:38 | disposition home or self-care (01) ==
PROVIDERS: Emergency Provider Emergency Medicine; PCP Family Medicine
DX: L03.115 Cellulitis of right lower limb (principal)
CPT/HCPCS: 36415; 80053; 83605; 84145; 85025; 87040; 99283

== ENCOUNTER → 2020-08-23 14:22 | Outpatient (CLI) | payer OTHER, MEDICAID, SELFPAY ==
[2018-06-12 23:55] VITALS: BMI 50.6
--- NOTE | 2020-08-23 14:27 | DI.US.S_ITS ---
PROCEDURE: US EXTREMITY NONVASC UPPER LT INDICATIONS: LEFT WRIST LUMP TECHNIQUE: Real-time scanning was performed of the left wrist , with image documentation. COMPARISON: [facility], , US EXTREMITY NONVASC LOWER RT, 06/09/2018, 15:47. FINDINGS: Focused ultrasound examination involving left lateral wrist shows no soft tissue mass or fluid collection. IMPRESSION: No abnormality is seen in left lateral wrist at the site of reported palpable lump. Dictated by: Diaz Burris M.D. on 08/23/2020 at 15:23 Approved by: Diaz Burris M.D. on 08/23/2020 at 15:45
== END ==
PROVIDERS: PCP Family Medicine; Referring Provider Family Medicine; Visit Provider Family Medicine
DX: R22.32 Localized swelling, mass and lump, left upper limb (principal)
CPT/HCPCS: 76882

== ENCOUNTER 2020-09-02 09:01 | Emergency (ER) | payer OTHER, MEDICAID, SELFPAY ==
[2018-06-12 23:55] VITALS: BMI 50.6
[2020-09-02 09:20] VITALS: BP 132/62; PULSE 68; RESP 18; TEMP 37.7; O2SAT 98
--- NOTE | 2020-09-02 09:24 | ED.SKABFB ---
HPI - Skin/Abscess/Foreign Bdy General Chief complaint: Skin/Abscess/Foreign Body Stated complaint: cellulitis Time Seen by Provider: 09/02/20 09:11 History of Present Illness HPI narrative: Female with history of chronic venous stasis and recent cellulitis she initially was diagnosed with cellulitis on August 11 placed on doxycycline for 10 days. She said symptoms improved significantly and she has been off of antibiotics for about 1 week. She actually has seen her primary care provider for blistering of her feet. She is having Swelling And redness in her right leg started yesterday. She has low-grade fever here of 100. Related Data Home Medications Medication Instructions Recorded Confirmed atenolol 50 mg tablet 50 mg PO DAILY 08/11/20 08/13/20 Previous Rx's Medication Instructions Recorded levothyroxine 200 mcg tablet 200 mcg PO DAILY #90 tab 07/26/20 doxycycline hyclate 100 mg tablet 100 mg PO BID #20 tab 08/11/20 triamcinolone acetonide 0.1 % 1 applic TOPICAL BID PRN #80 g 08/13/20 topical ointment cephalexin 500 mg capsule 500 mg PO TID 10 Days #30 cap 09/02/20 Allergies Allergy/AdvReac Type Severity Reaction Status Date / Time metoclopramide AdvReac Severe Verified 09/02/20 09:42 NERVOUS/AGITATION AND SUICIDAL THOUGHTS Review of Systems Review of Systems Narrative: GENERAL: Denies chills, fatigue, malaise, fever, sweats, travel HEENT: Denies sinus pain, ear pain, sore throat, difficulty swallowing, neck pain RESPIRATORY: Denies dyspnea, cough, wheezing, hemoptysis, sputum. CARDIOVASCULAR: Denies chest pain, palpitations, orthopnea, edema GASTROINTESTINAL: Denies nausea, vomiting, abdominal pain, diarrhea, constipation, melena. : Denies dysuria, frequency, incontinence, hematuria, urinary retention, flank pain. MUSCULOSKELETAL: Denies weakness, joint pain, or bony pain SKIN: See HPI NEUROLOGIC: Denies weakness, dizziness, headache, numbness, change in speech, confusion PSYCHIATRIC: No concerning psychosocial issues. 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 Mass of left wrist Morbid obesity with body mass index (BMI) of 50.0 to 59.9 in adult Nocturnal hypoxemia Obstructive sleep apnea, adult Polycystic ovary syndrome Snoring UTI (urinary tract infection) Surgical History History of bilateral salpingo-oophorectomy (BSO) (05/11/17) History of third molar tooth extraction Status post adenoidectomy Status post eye surgery Status post laparoscopic cholecystectomy Status post laparoscopic supracervical hysterectomy (05/11/17) Status post surgery (08/08/13) Family History Family/Other Adopted Social History household members: none Smoking Status: Current some day smoker Tobacco: How many years used: 4 second hand exposure: No alcohol intake: current substance use type: does not use Smoking Status: Current some day smoker alcohol intake frequency: a few times a week Substance Use Type: does not use Exam Initial Vital Signs Initial Vital Signs: Vital Signs Temperature 100 F H 09/02/20 09:20 Pulse Rate 68 09/02/20 09:20 Respiratory Rate 18 09/02/20 09:20 Blood Pressure 132/62 09/02/20 09:20 Pulse Oximetry 98 09/02/20 09:20 GENERAL: Well-appearing, well-nourished and in no acute distress. HEENT: Head atraumatic,EOMI, pupils reactive, face symmetric, moist mucous membranes CARDIOVASCULAR: Regular rate and rhythm without murmurs, rubs or gallops. RESPIRATORY: Breath sounds equal bilaterally, no wheezes rales or rhonchi. ABDOMEN: Soft, nontender. Normoactive bowel sounds all 4 quadrants. No guarding or rebound. EXTREMITIES: Normal range of motion, no clubbing or edema. Neurovascularly intact NEUROLOGICAL: Alert and oriented x4.Normal gait and speech. SKIN: Chronic venous stasis right lower extremity is is slightly erythematous not circumferential does not go above the knee or involve the foot. Distal pedal pulse is intact Course Orders Ordered: ED Orders 09/02/20 11:10 Complete Blood Count AUTO DIFF Stat Comprehensive Metabolic Panel Stat Lactate (Lactic Acid) Stat Procalcitonin Stat Vital Signs Vital signs: Vital Signs - 8 hr 09/02/20 12:28 Temperature 100.0 F H Pulse Rate 68 Respiratory Rate 18 Blood Pressure 135/72 Pulse Oximetry 98 MDM - Skin/Abscess/Foreign Bdy Lab Data Result diagrams: 09/02/20 11:10 09/02/20 11:10 Labs: Lab Results 09/02/20 09/02/20 09/02/20 Range/Units 11:10 11:10 11:10 WBC 14.7 H (4.5-11.0) X10^3/uL RBC 4.87 (4.0-5.2) X10^6/uL Hgb 13.9 (12.0-16.0) g/dL Hct 42.3 (36-46) % MCV 87.0 (80-100) fL MCH 28.7 (26-34) PG MCHC 32.9 (30-36) % RDW 14.5 (11.6-14.8) % Plt Count 165 (150-400) X10^3/uL Neut % (Auto) 87.2 H (50-75) % Lymph % (Auto) 7.5 L (25-40) % [place] % (Auto) 4.9 (3-14) % Eos % (Auto) 0.1 L (2-4) % Baso % (Auto) 0.3 (0-2) % Neut # (Auto) 02954 H (7417-4122) /uL Lymph # (Auto) 1100 (0886-1975) /uL [place] # (Auto) 700 (0-900) /uL Eos # (Auto) 0 (0-450) /uL Baso # (Auto) 0 (0-100) /uL Sodium 137 (137-145) mmol/L Potassium 4.1 (3.4-5.1) mmol/L Chloride 100 (98-107) mmol/L Carbon Dioxide 28 (22-32) mmol/L BUN 11 (7-17) mg/dL Creatinine 0.74 (0.52-1.04) mg/dL Estimated GFR > 60.0 (>60) mL/min BUN/Creatinine Ratio 14.9 (6-22) Glucose 103 H (70-100) mg/dL Lactate 1.9 (0.7-2.1) mmol/L Calcium 10.0 (8.4-10.2) mg/dL Total Bilirubin 1.0 (0.2-1.3) mg/dL AST 39 H (14-36) IU/L ALT 44 H (<35) IU/L Alkaline Phosphatase 101 (38-126) U/L Total Protein 8.7 H (6.3-8.2) g/dL Albumin 4.7 (3.5-5.0) g/dL Globulin 4.0 (1.7-4.1) g/dL Albumin/Globulin Ratio 1.2 (1.0-2.8) Procalcitonin (<0.5) ng/mL 09/02/20 Range/Units 11:10 WBC (4.5-11.0) X10^3/uL RBC (4.0-5.2) X10^6/uL Hgb (12.0-16.0) g/dL Hct (36-46) % MCV (80-100) fL MCH (26-34) PG MCHC (30-36) % RDW (11.6-14.8) % Plt Count (150-400) X10^3/uL Neut % (Auto) (50-75) % Lymph % (Auto) (25-40) % [place] % (Auto) (3-14) % Eos % (Auto) (2-4) % Baso % (Auto) (0-2) % Neut # (Auto) (0259-0512) /uL Lymph # (Auto) (6270-8550) /uL [place] # (Auto) (0-900) /uL Eos # (Auto) (0-450) /uL Baso # (Auto) (0-100) /uL Sodium (137-145) mmol/L Potassium (3.4-5.1) mmol/L Chloride (98-107) mmol/L Carbon Dioxide (22-32) mmol/L BUN (7-17) mg/dL Creatinine (0.52-1.04) mg/dL Estimated GFR (>60) mL/min BUN/Creatinine Ratio (6-22) Glucose (70-100) mg/dL Lactate (0.7-2.1) mmol/L Calcium (8.4-10.2) mg/dL Total Bilirubin (0.2-1.3) mg/dL AST (14-36) IU/L ALT (<35) IU/L Alkaline Phosphatase (38-126) U/L Total Protein (6.3-8.2) g/dL Albumin (3.5-5.0) g/dL Globulin (1.7-4.1) g/dL Albumin/Globulin Ratio (1.0-2.8) Procalcitonin 0.14 (<0.5) ng/mL MDM Narrative Medical decision making narrative: Patient does have obvious erythema her right leg a leukocytosis of 14 mild elevation in procalcitonin. At this time patient's blood pressure and heart rate appear within normal limits and she does not appear ill. Despite this being her 2nd attack I think she can still be treated as an outpatient. She is reliable and is quite concerned about cellulitis and sepsis and will return emergency department if needed. Beds are also quite short and would be difficult to admit. She has previously been on Keflex and had a good response. Concern with doxycycline with peeling of palms and soles of feet. Discharge Plan Departure Patient Disposition: Home Clinical Impression: Cellulitis Qualifiers: Site of cellulitis: extremity Site of cellulitis of extremity: lower extremity Laterality: right Qualified Code(s): L03.115 - Cellulitis of right lower limb Instructions: DI for Cellulitis -- Adult Activity Restrictions/Additional Instructions: *You have been diagnosed with cellulitis right leg *What to do: At this time blood work and exam are overall reassuring. However please monitor closely for any worsening redness or symptoms. *Continue to take medications as directed Keflex 500 mg 3 times a day x 10 days---> sENT TO [facility] *Follow up with your primary care provider in 2-3 days *Return to ER if you should have increasing redness, confusion, pain, nausea or vomiting, swelling or any new, worsening or concerning symptoms Prescriptions: New cephalexin 500 mg capsule 500 mg PO TID 10 Days Qty: 30 RF: 0 No Action levothyroxine 200 mcg tablet 200 mcg PO DAILY Qty: 90 RF: 2 triamcinolone acetonide 0.1 % ointment 1 applic topical BID PRN (Reason: skin dryness, dermatitis) Qty: 80 RF: 0 atenolol 50 mg tablet 50 mg PO DAILY RF: 0 doxycycline hyclate 100 mg tablet 100 mg PO BID Qty: 20 RF: 0 Referrals: Gómez Juarez MD [Primary Care Provider] -
[2020-09-02 11:22] LABS: Add Manual Diff / Slide Review NO; Basophils Absolute Auto 0 /uL (0-100); Basophils Percent Auto 0.3 % (0-2); Eosinophils Absolute Auto 0 /uL (0-450); Eosinophils Percent Auto 0.1 % (2-4); Hematocrit 42.3 % (36-46); Hemoglobin 13.9 g/dL (12.0-16.0); Lymphocytes Absolute Auto 1100 /uL (1100-4500); Lymphocytes Percent Auto 7.5 % (25-40); Mean Corpuscular HGB Conc 32.9 % (30-36); Mean Corpuscular Hemoglobin 28.7 PG (26-34); Monocytes Absolute Auto 700 /uL (0-900); Monocytes Percent Auto 4.9 % (3-14); Neutrophils Absolute Auto 12800 /uL (1500-7000); Neutrophils Percent Auto 87.2 % (50-75); Platelet Count 165 X10^3/uL (150-400); Red Blood Cell Count 4.87 X10^6/uL (4.0-5.2); Red Cell Distribution Width 14.5 % (11.6-14.8); White Blood Cell Count 14.7 X10^3/uL (4.5-11.0)
[2020-09-02 11:34] LABS: Lactate (Lactic Acid) 1.9 mmol/L (0.7-2.1)
[2020-09-02 11:35] LABS: Alanine Aminotransferase 44 IU/L (<35); Albumin 4.7 g/dL (3.5-5.0); Albumin Globulin Ratio 1.2 (1.0-2.8); Alkaline Phosphatase 101 U/L (38-126); Aspartate Aminotransferase 39 IU/L (14-36); BUN Creatinine Ratio 14.9 (6-22); Blood Urea Nitrogen 11 mg/dL (7-17); Carbon Dioxide 28 mmol/L (22-32); Chloride 100 mmol/L (98-107); Estimated Glomerular Filt Rate > 60.0 mL/min (>60); Glucose 103 mg/dL (70-100); HEMOLYSIS < 15 (0-50); Potassium 4.1 mmol/L (3.4-5.1); Sodium 137 mmol/L (137-145); Total Protein 8.7 g/dL (6.3-8.2)
[2020-09-02 11:51] LABS: Procalcitonin 0.14 ng/mL (<0.5)
[2020-09-02 12:28] VITALS: BP 135/72; PULSE 68; RESP 18; TEMP 37.8; O2SAT 98
== END 2020-09-02 12:28 | disposition home or self-care (01) ==
PROVIDERS: Emergency Provider Emergency Medicine; PCP Family Medicine
DX: L03.115 Cellulitis of right lower limb (principal)
CPT/HCPCS: 36415; 80053; 83605; 84145; 85025; 99281; 99283

== ENCOUNTER → 2020-09-24 08:31 | Outpatient (CLI) | payer OTHER, MEDICAID, SELFPAY ==
[2018-06-12 23:55] VITALS: BMI 50.6
--- NOTE | 2020-09-25 09:06 | PM.TREADMILL ---
Cardiac Stress Test Report Referral & Results Date Patient Seen: 09/25/20 Time Patient Seen: 09:00 Requesting provider: Gómez Juarez Indication: Chest discomfort Rest ECG: NSR Procedure Note: Today following both written and verbal informed consent the patient was exercised according to a standard Wang protocol patient went for a total of 5 minutes achieving a maximum heart rate of 152 maximum systolic blood pressure of 208. This is approximately 7.0 METs. Exercise was terminated at this point because of fatigue. Patient was also given Cardiolite through a previously started Hep-Lock IV by the collections technician approximately 1 minute prior to the cessation of exercise. Hypertensive at baseline. Exaggerated hemodynamic response to exercise. Marked exercise intolerance (FA I +25% on active scale). No EKG changes. No signs or symptoms of angina. Impression: Intermediate probability for ischemia. Will await perfusion imaging. Please note: Actual ECG tracings can be found in the PACS system.
--- NOTE | 2020-09-25 18:21 | DI.NM.S_ITS ---
DATE OF SERVICE: PROCEDURE: Exercise perfusion study. DATE OF STUDY: 09/25/2020 INDICATIONS: Chest pain with underlying hypertension. RADIOPHARMACEUTICAL: 27.0 millicurie technetium-99m Myoview IV was injected at stress and 26.7 millicurie technetium-99m Myoview IV was injected at rest. CARDIAC STRESS: The patient underwent exercise perfusion study under the supervision of an attending staff. The patient walked on Wang protocol for 5 minutes and 01 seconds, achieved 93 percent of target heart rate. Baseline blood pressure 172/102 and peak blood pressure 208/108. The patient was hypertensive at baseline. Achieved functional aerobic impairment of positive 25% and 7 METs of workload. She felt fatigued. Baseline EKG revealed sinus rhythm. During stress, no convincing ischemic changes seen. No significant arrhythmias seen. There was enhanced chronotropic response. RAW DATA: There was significant breast shadow seen. GATED STUDY: Resting LV ejection fraction 74% and stress LV ejection fraction 75 percent without any obvious wall motion abnormalities. Resting end-diastolic volume 127 mL. TID ratio 1.17 which is within normal limits. Lung/heart ratio 0.49, which is abnormal. PERFUSION SCAN: Stress supine, resting supine and stress prone images were compared to each other. Stress supine and resting supine images revealed moderate-size, mild to moderately decreased perfusion of anterior wall extending into the anterior apex, as well as mildly decreased perfusion of base to mid inferior wall which got significantly improved during prone images. There was no convincing ischemia or infarction pattern seen during stress prone images. CONCLUSION: I will call this study likely a normal myocardial perfusion study with evidence of breast tissue attenuation artifact as well as diaphragmatic tissue attenuation artifact which got significantly improved during prone images. Diminished exercise tolerance. Functional aerobic impairment positive 25 percent. Baseline hypertensive. Enhanced chronotropic response. No obvious ischemic changes or arrhythmias. Normal TID ratio. However, lung heart ratio is abnormal. Please get a 2D echo to make sure there is no diastolic dysfunction or valvular pathology. Mirela Alvarez - DEMETRIA/sudeep/deja doc#: [id number]/job#: [id number] dd: 09/25/2020 17:26:00 dt: 09/25/2020 18:06:00 DICTATING MD/COPIES TO: Aurelia Obregon MD COPIES MNE: KELLIE;
== END ==
PROVIDERS: PCP Family Medicine; Referring Provider Family Medicine; Visit Provider Family Medicine
DX: R07.89 Other chest pain (principal); E78.2 Mixed hyperlipidemia
CPT/HCPCS: 78452; 93016; 93017; 93018; A9502

== ENCOUNTER → 2020-09-24 10:02 | Outpatient (CLI) | payer OTHER, MEDICAID, SELFPAY ==
[2018-06-12 23:55] VITALS: BMI 50.6
[2020-09-24 11:50] LABS: COVID19 -Nasal RAPID Negative (Negative)
== END ==
PROVIDERS: PCP Family Medicine; Visit Provider Physician Assistant
DX: Z01.812 Encounter for preprocedural laboratory examination (principal); Z20.822 Contact with and (suspected) exposure to COVID-19
CPT/HCPCS: 87635

== ENCOUNTER → 2020-10-01 10:02 | Outpatient (CLI) | payer OTHER, MEDICAID, SELFPAY ==
[2018-06-12 23:55] VITALS: BMI 50.6
--- NOTE | 2020-10-01 10:03 | DI.ECHO.S_ITS ---
[place] [facility] +---------+ : : [address] : : : : [id number] : : : : Phone: [phone]+ Echocardiogram Report + + :Name: HANNAH OWEN Study Date: 10/01/2020 Height: 65 in : :[facility] ReadingLocation: Weight: 300 lb : : Gender: Female BSA: 2.4 m2 : :: 1965 Age: 55 yrs BP: 184/101 mmHg: :Reason For Study: GENERAL EXAM : :Ordering Physician: DAMON, : :COCO Performed By: Abraham Diallo : :Referring: COCO JOSE : + + Interpretation Summary Normal both left and right ventricle size and function. The ejection fraction is 60-65%. Both atria are normal in size. No valvular abnormality. The ascending aorta is mildly enlarged (3.7 cm). Procedure: A two-dimensional transthoracic echocardiogram with color flow and Doppler was performed. The study quality was technically adequate. There is no prior echocardiogram noted for this patient. The patient was in sinus rhythm with heart rates between 54-62 bpm during the exam. Left Ventricle: The left ventricle is normal in size and wall thickness. Left ventricular systolic function is normal. The ejection fraction is estimated to be 60-65%. There are no focal wall motion abnormalities. Diastolic parameters suggest probable normal left ventricular diastolic function and normal filling pressures. Right Ventricle: The right ventricle is normal in size and function. Atria: Both atria are normal in size. There is no Doppler evidence for an interatrial shunt. Mitral Valve: The mitral valve is normal in structure and function. There is no mitral regurgitation noted. Aortic Valve: The aortic valve is normal in structure and function. No aortic regurgitation is present. Tricuspid Valve: The tricuspid valve is normal in structure and function. There is a trace or physiologic amount of tricuspid regurgitation. Pulmonary artery pressures cannot be estimated because of the lack of a measurable TR jet velocity but the IVC suggests a CVP of around 3 mmHg. Pulmonic Valve: The pulmonic valve is normal in structure and function. There is a trace or physiologic amount of pulmonic regurgitation. Great Vessels: The aortic root is normal size. The ascending aorta is mildly enlarged. The IVC is of normal diameter and collapses greater than 50% with a sniff. This suggests a low right atrial pressure of 3 mm Hg. Pericardium/ Pleura There is no pericardial effusion. There is no pleural effusion. MMode/2D Measurements & Calculations LVIDd: 5.0 cm LVOT diam: 2.1 cm LVIDs: 3.5 cm Ao root diam: 3.2 cm FS: 30.0 % asc Aorta Diam: 3.7 cm IVSd: 0.90 cm LVPWd: 0.90 cm LV sheppard. diameter/BSA (cm/m^2): 2.1 LV sys. diameter/BSA (cm/m^2): 1.5 LA dimension: 4.0 cm RA long axis: 4.8 cm LA A2 area: 21.3 cm2 LA A4 area: 21.6 cm2 LA length (vol): 5.6 cm LA vol: 69.2 ml LA vol index: 29.5 ml/m2 TAPSE_phl: 2.7 cm RVIDd/LVIDd_phl: 0.62 Doppler Measurements & Calculations Ao V2 max: 175.0 cm/sec LVOT Max Pepe: 181.0 cm/sec Ao V2 mean: 120.0 cm/sec LV V1 max P.1 mmHg Ao max P.0 mmHg LV V1 VTI: 40.4 cm Ao mean P.0 mmHg PEPITO(I,D): 3.6 cm2 Ao V2 VTI: 38.6 cm PEPITO(V,D): 3.6 cm2 sev ratio: 1.0 PEPITO indexed to BSA (cm^2/m^2): 1.5 MV E max pepe: 118.0 cm/sec PA V2 max: 99.0 cm/sec MV A max pepe: 84.8 cm/sec PA V2 mean: 79.0 cm/sec MV E/A: 1.4 PA mean P.0 mmHg Med Peak E' Pepe: 9.3 cm/sec PA pr(Accel): 21.9 mmHg E/E' med: 12.7 Lat Peak E' Pepe: 10.3 cm/sec E/E' lat: 11.5 E/e' average: 12.1 MV dec time: 0.22 sec SV(LVOT): 139.9 ml AV VR_phl: 1.0 PEPITO(VTI)/BSA_phl: 1.5 MV P1/2t-pr_phl: 65.0 msec Electronically signed by: Rachelle Powell on Reading Physician:10/02/2020 12:19 PM
== END ==
PROVIDERS: PCP Family Medicine; Referring Provider Family Medicine; Visit Provider Family Medicine
DX: I77.89 Other specified disorders of arteries and arterioles (principal); R68.89 Other general symptoms and signs
CPT/HCPCS: 93306

== ENCOUNTER → 2020-11-30 11:17 | Outpatient (CLI) | payer OTHER, MEDICAID, SELFPAY ==
[2018-06-12 23:55] VITALS: BMI 50.6
[2020-11-30 14:56] LABS: COVID19 -Nasal RAPID Negative (Negative)
== END ==
PROVIDERS: PCP Family Medicine; Visit Provider Physician Assistant
DX: Z20.822 Contact with and (suspected) exposure to COVID-19 (principal); R05.9 Cough, unspecified
CPT/HCPCS: 87635

== ENCOUNTER → 2021-01-30 11:37 | Outpatient (CLI) | payer OTHER, MEDICAID, SELFPAY ==
[2020-12-04 13:24] VITALS: BMI 50.6
[2021-01-30 13:27] LABS: COVID19 -Nasal RAPID Negative (Negative)
== END ==
PROVIDERS: PCP Family Medicine; Visit Provider Physician Assistant
DX: R09.81 Nasal congestion (principal); R09.89 Other specified symptoms and signs involving the circulatory and respiratory systems
CPT/HCPCS: 87635

== ENCOUNTER → 2021-04-22 07:27 | Outpatient (CLI) | payer OTHER, MEDICAID, SELFPAY ==
[2020-12-04 13:24] VITALS: BMI 50.6
[2021-04-22 07:58] LABS: Add Manual Diff / Slide Review NO; Basophils Absolute Auto 0 /uL (0-100); Basophils Percent Auto 0.2 % (0-2); Eosinophils Absolute Auto 200 /uL (0-450); Eosinophils Percent Auto 2.9 % (2-4); Hematocrit 40.2 % (36-46); Hemoglobin 13.4 g/dL (12.0-16.0); Lymphocytes Absolute Auto 1700 /uL (1100-4500); Lymphocytes Percent Auto 27.6 % (25-40); Mean Corpuscular HGB Conc 33.2 % (30-36); Mean Corpuscular Hemoglobin 28.6 PG (26-34); Mean Corpuscular Volume 86.1 fL (80-100); Monocytes Absolute Auto 600 /uL (0-900); Monocytes Percent Auto 10.2 % (3-14); Neutrophils Absolute Auto 3600 /uL (1500-7000); Neutrophils Percent Auto 59.1 % (50-75); Platelet Count 176 X10^3/uL (150-400); Red Blood Cell Count 4.67 X10^6/uL (4.0-5.2); White Blood Cell Count 6.1 X10^3/uL (4.5-11.0)
[2021-04-22 08:13] LABS: Alanine Aminotransferase 40 IU/L (<35); Albumin 4.4 g/dL (3.5-5.0); Albumin Globulin Ratio 1.2 (1.0-2.8); Alkaline Phosphatase 108 U/L (38-126); Aspartate Aminotransferase 39 IU/L (14-36); BUN Creatinine Ratio 23.9 (6-22); Bilirubin Total 0.4 mg/dL (0.2-1.3); Blood Urea Nitrogen 17 mg/dL (7-17); Calcium 9.5 mg/dL (8.4-10.2); Carbon Dioxide 28 mmol/L (22-32); Chloride 106 mmol/L (98-107); Cholesterol 246 mg/dL (140-199); Estimated Glomerular Filt Rate > 60.0 mL/min (>60); Globulin 3.6 g/dL (1.7-4.1); Glucose 101 mg/dL (70-100); HDL Cholesterol 48 mg/dL (40-60); HEMOLYSIS < 15 (0-50); LDL Cholesterol Calculated 157 mg/dL (<100); Potassium 4.1 mmol/L (3.4-5.1); Sodium 138 mmol/L (137-145); Triglycerides 203 mg/dL (35-150)
[2021-04-22 08:42] LABS: TSH w/ Reflex to FT4 2.91 uIU/mL (0.47-4.68)
[2021-04-22 09:42] LABS: Microalbumi Creatinin Ratio Ur 22.7 ug/mg CR (<30); Microalbumin Urine Random 1.8 mg/dL (0-1.6)
== END ==
PROVIDERS: PCP Family Medicine; Referring Provider Family Medicine; Visit Provider Family Medicine
DX: E78.2 Mixed hyperlipidemia (principal); I10 Essential (primary) hypertension; B35.1 Tinea unguium
CPT/HCPCS: 36415; 80053; 80061; 82043; 82570; 84443; 85025

== ENCOUNTER → 2021-08-30 08:34 | Outpatient (CLI) | payer OTHER, MEDICAID, SELFPAY ==
[2020-12-04 13:24] VITALS: BMI 50.6
--- NOTE | 2021-08-30 08:37 | DI.RAD.S_ITS ---
PROCEDURE: XR ANKLE RT MIN 3V INDICATIONS: bilateral ankle pain TECHNIQUE: 3 views of the ankle were acquired. COMPARISON: [facility], CR, XR ANKLE LT MIN 3V, 08/30/2021, 8:25. [facility], CR, XR ANKLE RT MIN 3V, 08/24/2018, 15:36. FINDINGS: Bones: No acute fractures or dislocations. Suspect old distal tibial fibula syndesmotic injury. Ankle mortise is normally aligned. No suspicious bony lesions. Moderate degenerative joint disease at the subtalar joint and talonavicular joint. 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 Calcaneal spurring. Soft tissues: No tibiotalar joint effusion. Achilles tendon appears normal. Marked soft tissue swelling. IMPRESSION: 1. No acute osseous abnormalities. If clinical symptoms persist or clinical suspicion for pathology is high, a repeat examination in 7-10 days, or advanced imaging such as CT or MRI is suggested for further evaluation. 2. Moderate degenerative joint disease. 3. Large os trigonum. 4. Calcaneal spurring. 5. Marked soft tissue swelling. Dictated by: Roshan Dee M.D. on 09/03/2021 at 17:16 Approved by: Roshan Dee M.D. on 09/04/2021 at 10:57
--- NOTE | 2021-08-30 08:37 | DI.RAD.S_ITS ---
PROCEDURE: XR KNEE LT 3V INDICATIONS: bilateral knee pain TECHNIQUE: 3 views of the knee were acquired. COMPARISON: None. FINDINGS: Bones: No fractures or dislocations. No suspicious bony lesions. Moderate to severe medial patellofemoral compartment osteoarthritis. Moderate lateral compartment osteoarthritis. Soft tissues: No joint effusion. No suspicious soft tissue calcifications. IMPRESSION: Left knee tricompartmental osteoarthritis. Dictated by: Dania Rico MD, PhD on 08/30/2021 at 14:51 Approved by: Dania Rico MD, PhD on 08/30/2021 at 14:57
--- NOTE | 2021-08-30 08:37 | DI.RAD.S_ITS ---
PROCEDURE: XR KNEE RT 3V INDICATIONS: bilateral knee pain TECHNIQUE: 3 views of the knee were acquired. COMPARISON: None. FINDINGS: Bones: No fractures or dislocations. No suspicious bony lesions. Severe patellofemoral compartment osteoarthritis. Moderate medial compartment osteoarthritis. Mild lateral compartment osteoarthritis. Soft tissues: No joint effusion. No suspicious soft tissue calcifications. IMPRESSION: Right knee tricompartmental osteoarthritis. Dictated by: Dania Rico MD, PhD on 08/30/2021 at 14:57 Approved by: Dania Rico MD, PhD on 08/30/2021 at 14:57
--- NOTE | 2021-08-30 08:37 | DI.RAD.S_ITS ---
PROCEDURE: XR ANKLE LT MIN 3V INDICATIONS: bilateral ankle pain TECHNIQUE: 3 views of the ankle were acquired. COMPARISON: [facility], CR, XR ANKLE RT MIN 3V, 08/24/2018, 15:36. [facility], CR, XR ANKLE LT MIN 3V, 08/24/2018, 15:34. FINDINGS: Bones: No fractures or dislocations. Ankle mortise is normally aligned. No suspicious bony lesions. A plantar calcaneal spur is present. Degenerative changes of the ankle are present. Soft tissues: Possible tibiotalar joint effusion. IMPRESSION: No acute fracture visualized. If clinical suspicion for an acute fracture persists, follow-up radiographs and/or CT may be helpful. Dictated by: Harris Grande M.D. on 08/30/2021 at 17:42 Approved by: Harris Grande M.D. on 08/30/2021 at 17:46
== END ==
PROVIDERS: PCP Family Medicine; Referring Provider Family Medicine; Visit Provider Family Medicine
DX: M25.571 Pain in right ankle and joints of right foot (principal); M25.572 Pain in left ankle and joints of left foot; M17.0 Bilateral primary osteoarthritis of knee; M77.31 Calcaneal spur, right foot; M79.89 Other specified soft tissue disorders
CPT/HCPCS: 73562; 73610

== ENCOUNTER → 2022-03-21 12:28 | Outpatient (CLI) | payer OTHER, MEDICAID, SELFPAY ==
[2020-12-04 13:24] VITALS: BMI 50.6
[2022-03-21 13:48] LABS: Add Manual Diff / Slide Review NO; Basophils Absolute Auto 0 /uL (0-100); Basophils Percent Auto 0.5 % (0-2); Eosinophils Absolute Auto 100 /uL (0-450); Eosinophils Percent Auto 2.1 % (2-4); Hematocrit 42.1 % (36-46); Hemoglobin 13.9 g/dL (12.0-16.0); Lymphocytes Absolute Auto 2000 /uL (1100-4500); Lymphocytes Percent Auto 30.1 % (25-40); Mean Corpuscular HGB Conc 33.1 % (30-36); Mean Corpuscular Hemoglobin 28.8 PG (26-34); Mean Corpuscular Volume 86.8 fL (80-100); Monocytes Absolute Auto 600 /uL (0-900); Monocytes Percent Auto 9.1 % (3-14); Neutrophils Absolute Auto 3900 /uL (1500-7000); Neutrophils Percent Auto 58.2 % (50-75); Platelet Count 165 X10^3/uL (150-400); Red Blood Cell Count 4.84 X10^6/uL (4.0-5.2); Red Cell Distribution Width 14.3 % (11.6-14.8); White Blood Cell Count 6.7 X10^3/uL (4.5-11.0)
[2022-03-21 13:59] LABS: Alanine Aminotransferase 34 IU/L (<35); Alkaline Phosphatase 106 U/L (38-126); Aspartate Aminotransferase 29 IU/L (14-36); Bilirubin Total 0.5 mg/dL (0.2-1.3); Blood Urea Nitrogen 18 mg/dL (7-17); Calcium 9.9 mg/dL (8.4-10.2); Carbon Dioxide 30 mmol/L (22-32); Chloride 103 mmol/L (98-107); Estimated Glomerular Filt Rate > 60 mL/min (>60); Glucose 87 mg/dL (70-100); HEMOLYSIS < 15 (0-50); Potassium 4.4 mmol/L (3.4-5.1); Sodium 140 mmol/L (137-145); Total Protein 8.2 g/dL (6.3-8.2)
[2022-03-21 15:12] LABS: TSH w/ Reflex to FT4 1.12 uIU/mL (0.47-4.68)
[2022-03-21 19:52] LABS: Albumin 4.4 g/dL (3.5-5.0); Albumin Globulin Ratio 1.2 (1.0-2.8); Globulin 3.8 g/dL (1.7-4.1)
== END ==
PROVIDERS: PCP Family Medicine; Referring Provider Family Medicine; Visit Provider Family Medicine
DX: E03.9 Hypothyroidism, unspecified (principal); E78.2 Mixed hyperlipidemia; I10 Essential (primary) hypertension; R61 Generalized hyperhidrosis; R74.8 Abnormal levels of other serum enzymes
CPT/HCPCS: 36415; 80053; 84443; 85025

== ENCOUNTER 2022-05-16 13:59 | Day surgery (SDC) | payer OTHER, MEDICAID, SELFPAY ==
[2020-12-04 13:24] VITALS: BMI 50.6
[2022-05-16 14:17] VITALS: BMI 46.7
[2022-05-16 14:21] VITALS: BP 157/91; PULSE 74; RESP 12; TEMP 36.2; O2SAT 97
[2022-05-16] MEDS: LACTATED RINGERS 1,000 ML 42 ML IV (14:23)
--- NOTE | 2022-05-16 15:29 | PM.HP.1 ---
History of Present Illness History of Present Illness Date Patient Seen: 05/16/22 Time Patient Seen: 15:29 Chief complaint: [facility] [place] Narrative: Colon cancer screening, adopted and does not know family history. NO symptoms, has a new, small, hard nodule near her anus that doesn't drain. 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 Mass of left wrist Morbid obesity with body mass index (BMI) of 50.0 to 59.9 in adult Nocturnal hypoxemia Obstructive sleep apnea, adult Polycystic ovary syndrome Snoring UTI (urinary tract infection) Surgical History History of bilateral salpingo-oophorectomy (BSO) (05/11/17) History of third molar tooth extraction Status post adenoidectomy Status post eye surgery Status post laparoscopic cholecystectomy Status post laparoscopic supracervical hysterectomy (05/11/17) Status post surgery (08/08/13) Family & Social History Family History Family/Other Adopted Social History: household members none Tobacco & Substance use: Smoking Status Former smoker alcohol intake current alcohol intake frequency a few times a week Substance Use Type does not use Meds Home Medications and Allergies Home Medications Medication Instructions Recorded Confirmed Type ibuprofen 200 mg tablet (Advil) 600 mg PO DAILY PRN Pain (Scale 09/17/20 05/16/22 History Score 1-3) fluticasone propionate 50 1 spray intranasal DAILY 01/17/21 05/16/22 History mcg/actuation nasal spray,suspension (Flonase Allergy Relief) Parking Permit... #1 ea 08/29/21 01/07/22 Rx cholecalciferol (vitamin D3) 50 50 mcg PO DAILY 01/07/22 05/16/22 History mcg (2,000 unit) capsule mecobalamin (vitamin B12) 1,000 1,000 mcg PO DAILY 01/07/22 05/16/22 History mcg chewable tablet levothyroxine 200 mcg tablet See Rx Instructions .Route 12/05/22 03/17/23 Rx .COMPLEX #90 tabs atenolol 50 mg tablet See Rx Instructions .Route 02/25/22 05/16/22 Rx .COMPLEX #120 tabs peg 3350-electrolytes 236 240 ml PO Q10M #4,000 mL 04/30/22 05/16/22 Rx gram-22.74 gram-6.74 gram-5.86 gram solution (Golytely) Allergies Allergy/AdvReac Type Severity Reaction Status Date / Time metoclopramide AdvReac Severe Verified 05/16/22 14:15 NERVOUS/AGITATION AND SUICIDAL THOUGHTS doxycycline AdvReac Unknown itching Verified 05/16/22 14:15 palms and feet Review of Systems Review of Systems ROS: Yes All systems reviewed with the patient and are negative except as otherwise documented Exam Vital Signs (past 8 hours): - 05/16/22 14:21 Temperature 97.2 F L Pulse Rate 74 Respiratory Rate 12 Blood Pressure 157/91 H Pulse Oximetry 97 Oxygen Delivery Method Room Air Oxygen Delivery Method Room Air Const General: cooperative and healthy appearing Nutritional Appearance: obese HENMT Head: normocephalic and atraumatic Face and sinus: normal facial exam Eyes General: appearance normal, both eyes and all related structures Sclera: sclerae normal Neck Neck: trachea midline Resp Effort & Inspection: normal respiratory effort and able to speak in complete sentences Cardio Rate: regular rate Rhythm: regular rhythm GI Palpation: soft Skin General: turgor normal Neuro General: patient alert, patient awake and patient oriented x3 Cognition: normal cognition Psych Mental Status: mental status grossly normal Judgment: judgment good Assessment & Plan Assessment & Plan narrative: Colonoscopy for colon cancer screening under MAC Time Spent With Patient Time with patient: less than 30 minutes Critical Care time: I spent a total of [] minutes of critical care time on this patient's care today; this time is exclusive of procedural time.
--- NOTE | 2022-05-16 15:32 | PM.OP.COLON ---
Operative Date/Time/Diagnoses Date of procedure: 05/16/22 Time of procedure: 15:32 Pre-op diagnosis: colon cancer screening Post-op diagnosis: same Procedure & Clinicians Indications: Colon cancer screening Surgeon: Nae Haney Procedure Notes SCOAP/Timeout: Done Procedure in detail: Preop diagnosis: Colon cancer screening Postop diagnosis: Same Operative procedure: Colonoscopy under MAC Surgeon: Petra Haney MD Findings: The nodule at approximately 6 o'clock position perianal is an inclusion cyst that is not infected. Otherwise small verma colonic diverticuli, no polyps Procedure: Patient placed in a lateral position. Perianal area was examined and rectal exam was performed. Rectal exam shows normal tone no masses. Scope inserted into the rectum and advanced to the ileocecal valve with minimal difficulty. Insufflation and extraction of the scope including retroflex in the rectum had the above findings. Impression: Perianal nodule is a benign inclusion cyst. Patient has small diverticuli throughout her colon. No polyps Plan: Repeat colonoscopy in 10 years unless otherwise indicated by change in clinical condition Findings: divertiulosis Specimen(s): none sent Complications: none Impression: Verma diverticulosis. Small perianal inclusion cyst 2 mm in size, not infected Post-procedure Recommendations: Colonoscopy in 10 years Follow up: as needed Disposition: PACU
[2022-05-16 15:51] VITALS: BP 127/71; PULSE 70; RESP 16; TEMP 36.4; O2SAT 96
[2022-05-16 15:57] VITALS: BP 128/72; PULSE 66; RESP 12; O2SAT 97
[2022-05-16 16:01] VITALS: BP 136/78; PULSE 65; RESP 14; O2SAT 99
[2022-05-16 16:07] VITALS: BP 136/90; PULSE 67; RESP 16; TEMP 36.3; O2SAT 97
[2022-05-16 16:11] VITALS: BP 143/87; PULSE 71; RESP 16; O2SAT 99
== END 2022-05-16 16:32 | disposition home or self-care (01) ==
PROVIDERS: PCP Family Medicine; Referring Provider Surgery; Visit Provider Surgery
PROC: 0DJD8ZZ Inspection of Lower Intestinal Tract, Via Natural or Artificial Opening Endoscopic (ICD-10-PCS; CPT 45378; principal; 2022-05-16 15:45)
DX: Z12.11 Encounter for screening for malignant neoplasm of colon (principal); K57.30 Diverticulosis of large intestine without perforation or abscess without bleeding; L72.0 Epidermal cyst
CPT/HCPCS: 45378; J2704

== ENCOUNTER → 2022-11-10 07:56 | Outpatient (CLI) | payer OTHER, MEDICAID, SELFPAY ==
[2020-12-04 13:24] VITALS: BMI 50.6
[2022-11-10 09:28] LABS: Cholesterol 289 mg/dL (140-199); HDL Cholesterol 50 mg/dL (40-60); LDL Cholesterol Calculated 195 mg/dL (<100); Triglycerides 218 mg/dL (35-150)
[2022-11-10 11:54] LABS: Creatinine Urine Random 19.7 mg/dL
[2022-11-10 12:00] LABS: Microalbumin Urine Random < 0.6 mg/dL (0-1.6)
[2022-11-10 17:11] LABS: HIV 1 & 2 Ab/Ag 4th Gen Combo NEGATIVE (NEGATIVE)
== END ==
PROVIDERS: PCP Family Medicine; Referring Provider Family Medicine; Visit Provider Family Medicine
DX: E78.2 Mixed hyperlipidemia; I10 Essential (primary) hypertension; Z11.3 Encounter for screening for infections with a predominantly sexual mode of transmission
CPT/HCPCS: 36415; 80061; 82043; 82570; 87389

== ENCOUNTER → 2023-11-14 08:17 | Outpatient (CLI) | payer BC, SELFPAY ==
[2020-12-04 13:24] VITALS: BMI 50.6
[2023-11-14 10:28] LABS: Cholesterol 276 mg/dL (140-199); HDL Cholesterol 72 mg/dL (40-60); LDL Cholesterol Calculated 169 mg/dL (<100); Triglycerides 175 mg/dL (35-150)
[2023-11-15 08:12] LABS: Apolipoprotein B 133 mg/dL (<90)
== END ==
PROVIDERS: PCP Family Medicine; Referring Provider Family Medicine; Visit Provider Family Medicine
DX: I10 Essential (primary) hypertension (principal); E78.2 Mixed hyperlipidemia; E03.9 Hypothyroidism, unspecified
CPT/HCPCS: 36415; 80061; 82172; 83695

== ENCOUNTER 2024-05-27 17:22 | Emergency (ER) | payer BC, SELFPAY ==
[2020-12-04 13:24] VITALS: BMI 50.6
[2024-05-27 17:27] VITALS: BP 143/78; PULSE 70; RESP 16; TEMP 36.8; O2SAT 96; BMI 48.2
[2024-05-27 20:16] VITALS: BP 160/82; PULSE 67; RESP 16; O2SAT 99
--- NOTE | 2024-05-27 20:28 | ED.WOUNDLAC ---
HPI - Wound/Laceration General Chief Complaint: Wound/Laceration Stated Complaint: sent by [facility], infected wound Time Seen by Provider: 05/27/24 19:45 Source: patient Mode of arrival: Ambulatory History of Present Illness HPI narrative: 59-year-old woman with a history of chronic edema, chronic venous stasis changes, hypertension hyperlipidemia recent wound to the right outer calf that look like it was a flap type laceration with skin flap used as a biologic bandage. Small 5 0 absorbable guts 2 sutures are still in place. Has been approximately 2 weeks, she had somebody look at the wound today and was concerned that it might be increasingly red and becoming infected. She has had difficulty with lower extremity cellulitis in the past and wanted to be evaluated to avoid complications this time. No fevers no increasing pain. She has not had luck with compression socks in the past. She does elevate the leg, she has been doing all the appropriate wound care she has not having any difficulty with walking Related Data Home Medications Medication Instructions Recorded Confirmed fluticasone propionate 50 1 spray intranasal DAILY 01/17/21 01/04/24 mcg/actuation nasal spray,suspension (Flonase Allergy Relief) cholecalciferol (vitamin D3) 50 50 mcg PO DAILY 01/07/22 01/04/24 mcg (2,000 unit) capsule mecobalamin (vitamin B12) 1,000 1,000 mcg PO DAILY 01/07/22 01/04/24 mcg chewable tablet Previous Rx's Medication Instructions Recorded Parking Permit... #1 ea 08/29/21 rosuvastatin 5 mg tablet 5 mg PO DAILY #90 tabs 11/24/23 meloxicam 15 mg tablet 15 mg PO DAILY #90 tabs 02/04/24 levothyroxine 200 mcg tablet See Rx Instructions .Route 03/14/24 .COMPLEX #60 tabs atenolol 50 mg tablet See Rx Instructions .Route 04/14/24 .COMPLEX #30 tabs Allergies Allergy/AdvReac Type Severity Reaction Status Date / Time metoclopramide AdvReac Severe Verified 01/04/24 16:04 NERVOUS/AGITATION AND SUICIDAL THOUGHTS doxycycline AdvReac Unknown itching Verified 01/04/24 16:04 palms and feet Review of Systems Review of Systems Narrative: Pertinent positive and negative findings as per HPI Patient History Medical History Bilateral ankle pain Allergic rhinitis Mass of left wrist Snoring Obstructive sleep apnea, adult Nocturnal hypoxemia Morbid obesity with body mass index (BMI) of 50.0 to 59.9 in adult Insomnia due to medical condition Excessive daytime sleepiness Cough Instability of joints of both ankles Bilateral primary osteoarthritis of knee UTI (urinary tract infection) Polycystic ovary syndrome Hypothyroidism HTN (hypertension) Surgical History History of bilateral salpingo-oophorectomy (BSO) (05/11/17) Status post laparoscopic supracervical hysterectomy (05/11/17) Status post surgery (08/08/13) History of third molar tooth extraction Status post eye surgery Status post laparoscopic cholecystectomy Status post adenoidectomy Family History Family/Other Adopted Social History household members: none Smoking Status: Former smoker Tobacco: How many years used: 4 second hand exposure: No alcohol intake: current substance use type: does not use Smoking Status: Former smoker alcohol intake frequency: a few times a week Exam Initial Vital Signs Initial Vital Signs: Vital Signs Temperature 98.3 F 05/27/24 17:27 Pulse Rate 70 05/27/24 17:27 Respiratory Rate 16 05/27/24 17:27 Blood Pressure 143/78 H 05/27/24 17:27 Pulse Oximetry 96 05/27/24 17:27 Oxygen Delivery Method Room Air 05/27/24 17:27 General: Alert appropriate in no acute distress Respiratory: Able to speak in full sentences, no obvious respiratory distress Skin: No obvious rashes, warm and dry Neurologic: Grossly intact no obvious asymmetries or abnormalities Psych: appropriate insight and affect, cooperative Lower extremities: Chronic lower extremity edema with chronic venous stasis changes. There is a proximally 3 cm almost circular laceration to the lateral aspect calf on the right with flap replaced his biologic bandage now beginning to dry off. There is no increased redness, drainage or fluctuance. Wound appears to be healing nicely Course Vital Signs Vital signs: Vital Signs - 8 hr 05/27/24 17:27 05/27/24 20:16 Temperature 98.3 F Pulse Rate 70 67 Respiratory Rate 16 16 Blood Pressure 143/78 H 160/82 H Pulse Oximetry 96 99 Oxygen Delivery Method Room Air MDM - Wound/Laceration MDM Narrative Medical decision making narrative: 59-year-old woman with a history of chronic lower extremity edema and complications with cellulitis with prior lower extremity wounds. The moderately large wound that was sutured to use the flap as a biologic bandage that appears to been quite successful. The wound will still need to undergo additional healing through secondary intention but is not showing any signs of infection, drainage or deeper concerns. Patient states that her edema seems to be at her baseline for this time of the day. She has a routine to help reduce edema by morning and is doing all appropriate wound care. Encouraged her to continue the wound care, she does not need antibiotics and no additional imaging is required today. She is safe for discharge Discharge Plan Departure Patient Disposition: Home Clinical Impression: Wound check, abscess Activity Restrictions/Additional Instructions: Thank you for coming in today Your wound appears to be healing nicely. There are still some stitches that can be seen but they will eventually fall off. The flap of skin that was cut off was a very effective biologic Barrier. That is skin is now dried and will be reabsorbed. You can get the wound wet, simply pat it dry. When she had taken a shower apply antibiotic ointment and a simple dressing to the area to keep the wound moist so that the new skin cells can continue migrating in so the wound heals completely Doing all that you can to prevent lower extremity edema will help the wound heal. Keeping her legs elevated at night is going to be helpful. There is no indication for antibiotics right now. If you feel that you are getting worse or have new symptoms please return to the ER Prescriptions: No Action (DME) Parking Permit... See Rx Instructions .Route .MEDSUPPLY Qty: 1 0RF Rx Instructions: I find this patient to be medically disabled and qualified for disabled parking as indicated , and signed, on the Accompanying Disabled Parking Application for individuals. rosuvastatin 5 mg tablet 5 mg PO DAILY Qty: 90 3RF meloxicam 15 mg tablet 15 mg PO DAILY Qty: 90 1RF Rx Instructions: do not combine with other nSAIDS levothyroxine 200 mcg tablet See Rx Instructions .ROUTE .COMPLEX Qty: 60 1RF Dose Instruction: TAKE ONE TABLET BY MOUTH ONCE DAILY. Rx Instructions: TAKE ONE TABLET BY MOUTH ONCE DAILY. atenolol 50 mg tablet See Rx Instructions .ROUTE .COMPLEX Qty: 30 1RF Dose Instruction: TAKE 1/2 TABLET BY MOUTH EVERY DAY Rx Instructions: TAKE 1/2 TABLET BY MOUTH EVERY DAY fluticasone propionate [Flonase Allergy Relief] 50 mcg/actuation spray,suspension 1 spray intranasal DAILY Rx Instructions: administer into each nostril cholecalciferol (vitamin D3) 50 mcg (2,000 unit) capsule 50 mcg PO DAILY mecobalamin (vitamin B12) 1,000 mcg tablet,chewable 1,000 mcg PO DAILY Referrals: Gómez Juarez MD [Primary Care Provider] - Stand Alone Forms: Patient Portal/API/Survey
[2024-05-27 20:30] VITALS: BP 136/64; PULSE 62; O2SAT 98
== END 2024-05-27 20:45 | disposition home or self-care (01) ==
PROVIDERS: Emergency Provider Emergency Medicine; PCP Family Medicine
DX: T81.49XA Infection following a procedure, other surgical site, initial encounter (principal)
CPT/HCPCS: 99281

== ENCOUNTER → 2024-06-02 07:19 | Outpatient (CLI) | payer BC, SELFPAY ==
[2020-12-04 13:24] VITALS: BMI 50.6
[2024-06-02 08:04] LABS: Add Manual Diff / Slide Review NO; Basophils Absolute Auto 0 /uL (0-100); Basophils Percent Auto 0.4 % (0-2); Eosinophils Absolute Auto 100 /uL (0-450); Eosinophils Percent Auto 2.8 % (2-4); Hematocrit 41.7 % (36-46); Hemoglobin 14.2 g/dL (12.0-16.0); Lymphocytes Absolute Auto 1700 /uL (1100-4500); Lymphocytes Percent Auto 32.2 % (25-40); Mean Corpuscular Hemoglobin 29.9 PG (26-34); Mean Corpuscular Volume 87.8 fL (80-100); Monocytes Absolute Auto 600 /uL (0-900); Monocytes Percent Auto 11.3 % (3-14); Neutrophils Absolute Auto 2800 /uL (1500-7000); Neutrophils Percent Auto 53.3 % (50-75); Platelet Count 157 X10^3/uL (150-400); Red Blood Cell Count 4.74 X10^6/uL (4.0-5.2); Red Cell Distribution Width 13.8 % (11.6-14.8); White Blood Cell Count 5.3 X10^3/uL (4.5-11.0)
[2024-06-02 08:29] LABS: Alanine Aminotransferase 58 IU/L (<35); Albumin 4.6 g/dL (3.5-5.0); Albumin Globulin Ratio 1.6 (1.0-2.8); Alkaline Phosphatase 84 U/L (38-126); Aspartate Aminotransferase 46 IU/L (14-36); BUN Creatinine Ratio 29.2 (6-22); Bilirubin Total 0.8 mg/dL (0.2-1.3); Blood Urea Nitrogen 21 mg/dL (7-17); Calcium 10.2 mg/dL (8.4-10.2); Carbon Dioxide 24 mmol/L (22-32); Chloride 104 mmol/L (98-107); Cholesterol 245 mg/dL (140-199); Estimated Glomerular Filt Rate > 60 mL/min (>60); Globulin 2.8 g/dL (1.7-4.1); Glucose 99 mg/dL (80-110); HDL Cholesterol 63 mg/dL (40-60); HEMOLYSIS < 15 (0-50); LDL Cholesterol Calculated 143 mg/dL (<100); Potassium 4.3 mmol/L (3.4-5.1); Sodium 139 mmol/L (137-145); Total Protein 7.4 g/dL (6.3-8.2); Triglycerides 194 mg/dL (35-150)
[2024-06-02 09:04] LABS: TSH w/ Reflex to FT4 1.92 uIU/mL (0.47-4.68)
[2024-06-02 09:30] LABS: Creatinine Urine Random 113.82 mg/dL
[2024-06-02 09:36] LABS: Microalbumin Urine Random 1.8 mg/dL (0-1.6)
== END ==
PROVIDERS: PCP Family Medicine; Referring Provider Family Medicine; Visit Provider Family Medicine
DX: I10 Essential (primary) hypertension (principal); E66.01 Morbid (severe) obesity due to excess calories; Z68.43 Body mass index [BMI] 50.0-59.9, adult; M15.9 Polyosteoarthritis, unspecified; E78.2 Mixed hyperlipidemia; E03.9 Hypothyroidism, unspecified
CPT/HCPCS: 36415; 80053; 80061; 82043; 82570; 84443; 85025

== ENCOUNTER → 2024-06-02 09:00 | Outpatient (CLI) | payer BC, SELFPAY ==
[2020-12-04 13:24] VITALS: BMI 50.6
== END ==
PROVIDERS: PCP Family Medicine; Referring Provider Physician Assistant; Visit Provider Surgery
DX: L97.212 Non-pressure chronic ulcer of right calf with fat layer exposed (principal); I87.2 Venous insufficiency (chronic) (peripheral); R60.0 Localized edema; I10 Essential (primary) hypertension
CPT/HCPCS: 11042; 99203; 99213

== ENCOUNTER → 2024-06-16 14:56 | Outpatient (CLI) | payer BC, SELFPAY ==
[2020-12-04 13:24] VITALS: BMI 50.6
== END ==
LOC: WC 14:57
PROVIDERS: PCP Family Medicine; Referring Provider Physician Assistant; Visit Provider Surgery
DX: I87.2 Venous insufficiency (chronic) (peripheral) (principal); L97.812 Non-pressure chronic ulcer of other part of right lower leg with fat layer exposed; L98.8 Other specified disorders of the skin and subcutaneous tissue; R60.0 Localized edema
CPT/HCPCS: 11042

== ENCOUNTER → 2024-06-23 15:32 | Outpatient (CLI) | payer BC, SELFPAY ==
[2020-12-04 13:24] VITALS: BMI 50.6
== END ==
LOC: WC 06-29 15:33
PROVIDERS: PCP Family Medicine; Referring Provider Family Medicine; Visit Provider Surgery
DX: I87.2 Venous insufficiency (chronic) (peripheral) (principal); L97.812 Non-pressure chronic ulcer of other part of right lower leg with fat layer exposed; R60.0 Localized edema
CPT/HCPCS: 11042

== ENCOUNTER → 2024-06-30 14:55 | Outpatient (CLI) | payer BC, SELFPAY ==
[2020-12-04 13:24] VITALS: BMI 50.6
== END ==
LOC: WC 14:56
PROVIDERS: PCP Family Medicine; Referring Provider Family Medicine; Visit Provider Surgery
DX: I87.2 Venous insufficiency (chronic) (peripheral) (principal); L97.812 Non-pressure chronic ulcer of other part of right lower leg with fat layer exposed; R60.0 Localized edema
CPT/HCPCS: 11042; 99213

== ENCOUNTER → 2024-07-07 14:55 | Outpatient (CLI) | payer BC, SELFPAY ==
[2020-12-04 13:24] VITALS: BMI 50.6
== END ==
LOC: WC 14:56
PROVIDERS: PCP Family Medicine; Referring Provider Family Medicine; Visit Provider Surgery
DX: I87.2 Venous insufficiency (chronic) (peripheral) (principal); L97.812 Non-pressure chronic ulcer of other part of right lower leg with fat layer exposed; R60.0 Localized edema; I10 Essential (primary) hypertension
CPT/HCPCS: 11042

== ENCOUNTER → 2024-07-14 15:47 | Outpatient (CLI) | payer BC, SELFPAY ==
[2020-12-04 13:24] VITALS: BMI 50.6
== END ==
LOC: WC 15:48
PROVIDERS: PCP Family Medicine; Referring Provider Family Medicine; Visit Provider Surgery
DX: I87.2 Venous insufficiency (chronic) (peripheral) (principal); L97.812 Non-pressure chronic ulcer of other part of right lower leg with fat layer exposed; R60.0 Localized edema; L98.8 Other specified disorders of the skin and subcutaneous tissue; E66.01 Morbid (severe) obesity due to excess calories; Z68.42 Body mass index [BMI] 45.0-49.9, adult
CPT/HCPCS: 11042

== ENCOUNTER → 2024-07-21 16:08 | Outpatient (CLI) | payer BC, SELFPAY ==
[2020-12-04 13:24] VITALS: BMI 50.6
== END ==
LOC: WC 16:08
PROVIDERS: PCP Family Medicine; Referring Provider Family Medicine; Visit Provider Surgery
DX: Z87.2 Personal history of diseases of the skin and subcutaneous tissue (principal); R60.0 Localized edema
CPT/HCPCS: 99213